=== PATIENT | male | born 1945 | race Caucasian/White ===

== ENCOUNTER 2023-02-12 17:19 | Emergency (ER) | payer OTHER ==
--- OUTSIDE RECORDS SUMMARY | 2023-02-12 17:36 | XMS REPORT | Continuity of Care Document ---
:1945 Author Organization [facility] t Address [address] [place] [address] [address] [place] [address] Care Team Providers Name Role Phone Yunior Mora Attending Clinician Unavailable Nick Hays II Attending Clinician Unavailable Ely Simon Attending Clinician Unavailable Yunior Mora Admitting Clinician Unavailable [facility] Admitting Clinician Unavailable Ely Simon Admitting Clinician Unavailable Payers Payer Name Policy Type Policy Number Effective Date Expiration Date S ource Problems This patient has no known problems. Allergies, Adverse Reactions, Alerts Allergy Allergy Status Severity Reaction(s) Onset Inactive Treating Comm ents Source Name Type Date Date Clinician No Known DA Active U [facility] Allergie 02-28 [place] 00:00: [facility] 00 are [facility] cetirizi DA Active U ANAPHYLAXIS [facility] ne 12-01 [place] 00:00: [facility] 00 are [facility] Medications This patient has no known medications. Procedures Procedure Date / Time Performed Performing Clinician Naomie bernal [id number] 2021-12-05 00:00:00 SANTOSH [facility] [id number] 2021-12-05 00:00:00 LABLI [facility] [id number] 2021-12-04 00:00:00 VITKA01 [facility] [id number] 2021-12-04 00:00:00 VITKA01 [facility] Encounters Start End Encounter Admission Attending Care Care Encounter Source Date/Time Date/Time Type Type Clinicians Facility Department ID 2022-08-18 2022-08-19 Inpatient EM Noel Hebert, HCANW TELE [id number] [facility] 04:49:00 15:50:00 Yunior 01 [facility] are [facility] 2022-04-03 2022-04-04 Inpatient EM Noel Hebert, HCANW INTM.01 BN02 [id number] [facility] 21:02:00 12:51:00 Yunior 25 [facility] are [facility] 2022-02-28 2022-02-28 Emergency EM Hays II, HCANW BEA [id number] [facility] 10:52:00 13:33:00 Nick 69 [facility] are [facility] 2022-02-28 2022-02-28 Emergency EM Hays II, HCANW HCANW [id number] [facility] 10:52:00 13:33:00 Nick [id number] [facility] are [facility] 2021-12-01 2021-12-05 Inpatient EM Aurora, HCANW CARDIAC [id number] [facility] 02:10:00 13:00:00 Ely 50 [facility] are [facility] 2019-09-25 2019-09-25 Outpatient E [facility] MED 7500 [facility] 14:06:00 14:06:00 Results Test Description Test Time Test Comments Results Result Comments Source HGBA1C - GLYCOSYLATED HGB 2022-08-19 11:54:00 Test Item Value Reference Range Interpretation Comme nts GLYCOSYLATED HEMOGLOBIN (HA1C) 6.4 % 4.0-6.0 H Interpretive Data: Caution should (test code = GLYHGB) be exer cised when interpreting the HgbA1c in patie nts with hemolytic anemia, iron de ficiency and when the total hemog lobin is < 9g/dL, due to a decrea se in average age of red blood ce lls [id number] 11:46:00 Test Item Value Reference Range Interpretation Comments GLUBED (test code = GLUBED) 217 MG/DL 70-105 H - MRI BRAIN W/O [id number] 10:53:00 [facility] 1945 Sex: MPatientName: PRISCILA CONCEPCION Unit No: [id number] EXAMS: CPT: [id number] MRI BRAIN W/O CONTRAST 12407 EXAM - MRIBRAIN W/O CONTRAST HISTORY: AMS; dysphagia, hx of CVA TECHNIQUE: Patient was unable to complete the study. Only the axial and coronal diffusion weighted images without IV contrast were obtained. FINDINGS: Limited incomplete study with only axial and coronal diffusion weighted images obtained which show ed no acute infarction. IMPRESSION: Limited incomplete study. No acute infarction seen. at 1053 Reported and signed by: Felicita Woodward MD CC: Yunior Hicks MD; Kary Ahn Technologist: BRENNAN Schreiber [facility] Dt/Tm: 08/19/2022 (1053) by:[email or web address] Orig Print D/T: S: 08/19/2022 (1056) BATCH NO: N/A Name: PRISCILA CONCEPCION [facility] Phys: Kary Moody [address] [place] : 1945 Age: 76 Sex: M Rafal [id number] Loc: N.0558 1 Exam Date: 08/18/2022 Status: ADM IN PH: FAX: PAGE 1 Signed Report [id number] 06:42:00 Test Item Value Reference Range Interpretation Comments TROPONIN-I (test code = TROPI) <0.020 ng/mL 0.000-0.034 N BASIC METABOLIC [id number] 06:37:00 Test Item Value Reference Range Interpretation Comments SODIUM (test code = 138 mmol/L 135-145 N NA) POTASSIUM (test code 3.5 mmol/L 3.6-5.0 L = K) CHLORIDE (test code 109 mmol/L 101-111 N = CL) CARBON DIOXIDE (test 24 mmol/L 21-31 N code = CO2) GLUCOSE (test code = 150 mg/dl 70-100 H GLU) BLOOD UREA NITROGEN 18 mg/dl 6-20 N (test code = BUN) GLOMERULAR 57 >60 L The Glomerular FILTRATION RATE Filtration R ate is a (test code = GFR) calculated parameterbased on serum Creatinine, pat ient age and sex. GFR va luesless than 60 mL/min/ 1.73 square meters a re indicative ofCh ronic Kidney Disease. Values less than 15 mL/min/1.73squa re meters indicate Kidney failure. The calculation for GFR is based on the CK D-EPI (2020) calculat ion. This formulais race indifferent and is the recommended for ishmael for GFRby the Nat nal Kidney Foundati on for Adults.The GFR will not calculate if th e sex is unknown or if thepatient's ag e is <18 years. CREATININE (test 1.29 mg/dL 0.64-1.27 H code = CREAT) CALCIUM (test code = 8.8 mg/dL 8.5-10.5 N CA) LIPID PROFILE (CORONARY RISK)2022-08-19 06:37:00 Test Item Value Reference Range Interpretation Comments TRIGLYCERIDES (test 158 mg/dL 35-160 N code = TRIG) CHOLESTEROL (test code 125 mg/dL 0-200 N = CHOL) HDL CHOLESTEROL (test 38 mg/dL 27-67 N code = HDL) LIPOPROTEIN LDL (test 56 mg/dl 0-100 N LDL NO RMAL code = LDLC) RANGE:Desirable <100 mg/dLBorderline Risk 130-159 mg/dLHi gh Risk >160 mg/dL CORONARY RISK FACTOR 3.29 Interpr etive Datai1: (test code = RISK) LDL Calc LDL Normal Range Desirable <100 mg/dl Borderlin e High 130-159 mg/dl > 160 mg/dl High Risk >160 mg/dl i2: Chol/ HDL Ratio of Total Cholesterol to HDL Risk Men Women Very Low (1/2 avg) < 3.4 <3.3 Low Risk 4 .0 3.8 Avg Risk 5.0 4. 5 Moderate Risk ( 2x avg) 9.5 7.0 Hi gh Risk (3x risk) >23 >11 CBC W/AUTO [id number] 06:33:00 Test Item Value Reference Range Interpretation Comments WHITE BLOOD CELL (test code = 6.9 x10 3/uL 3.2-11.5 N WBC) RED BLOOD CELL (test code = 3.98 x10(6)/m 4.20-5.70 L RBC) HEMOGLOBIN (test code = HGB) 12.7 g/dL 12.9-17.3 L HEMATOCRIT (test code = HCT) 36.0 % 38.7-51.0 L MEAN CELL VOLUME (test code = 91 fL 80-100 N MCV) MEAN CELL HGB (test code = MCH) 31.9 pg 26.7-33.3 N MEAN CELL HGB CONCENTRATION 35.3 g/dL 30.0-34.0 H (test code = MCHC) RED CELL DISTRIBUTION WIDTH 12.5 % 11.3-14.5 N (test code = RDW) PLATELET COUNT (test code = 128 x10 3/uL 130-408 L PLT) MEAN PLATELET VOLUME (test code 11.0 fL 8.6-12.6 N = MPV) NEUTROPHIL % (test code = NT%) 46.4 % 40.0-70.0 N IMMATURE GRANULOCYTE % (test 0.3 % 0.0-2.0 N code = IG%) LYMPHOCYTE % (test code = LY%) 37.1 % 20-40 N MONOCYTE % (test code = MO%) 8.5 % 1-10 N EOSINOPHIL % (test code = EO%) 6.8 % 0.0-5.0 H BASOPHIL % (test code = BA%) 0.9 % 0.0-1.0 N NUCLEATED RBC % (test code = 0.0 % 0.0-0.9 N NRBC%) NEUTROPHIL # (test code = NT#) 3.2 x10 3/uL 1.6-7.2 N LYMPHOCYTE # (test code = LY#) 2.57 x10 3/uL 1.1-2.7 N MONOCYTE # (test code = MO#) 0.6 x10 3/uL 0.3-0.8 N EOSINOPHIL # (test code = EO#) 0.5 x10 3/uL 0.0-0.5 N BASOPHIL # (test code = BA#) 0.1 x10 3/uL 0.0-0.1 N DIFFERENTIAL [id number] 06:16:00 Test Item Value Reference Range Interpretation Comments PLATELET MORPHOLOGY (test code = NORMAL PLTMORPH) [id number] 05:41:00 Test Item Value Reference Range Interpretation Comments GLUBED (test code = GLUBED) 145 MG/DL 70-105 H [id number] 22:07:00 Test Item Value Reference Range Interpretation Comments GLUBED (test code = GLUBED) 195 MG/DL 70-105 H VITAMIN [id number] 20:05:00 Test Item Value Reference Range Interpretation Comments VITAMIN B12 (test code = VITB12) 745 pg/ml 180-914 N THYROID REFLEX TO [id number] 20:05:00 Test Item Value Reference Range Interpretation Comments THYROID REFLEX TO FT4 (test code 1.509 uIU/ml 0.450-5.330 N = TSHREFLEX) VITAMIN D [id number] 20:05:00 Test Item Value Reference Range Interpretation Comments VITAMIN D 25-HYDROXY 34 ng/ml 30-100 N Interpr etive Data :Vit D (test code = VITD25) 25 Hydr oxy Vit D Status Vit OH Vit D Co nc Range(ng/mL) De ficient < 20 Insufficient 20 - < 30 Sufficient 30 - 100 Upper Safety Limit > 100 [id number] 16:03:00 Test Item Value Reference Range Interpretation Comments GLUBED (test code = GLUBED) 122 MG/DL 70-105 H [id number] 16:02:00 Test Item Value Reference Range Interpretation Comments TROPONIN-I (test code = TROPI) <0.020 ng/mL 0.000-0.034 N [id number] 11:55:00 Test Item Value Reference Range Interpretation Comments GLUBED (test code = GLUBED) 145 MG/DL 70-105 H - CT ANGIO [id number] 07:11:00 [facility] 1945 Sex: MPatientName: PRISCILA CONCEPCION Unit No: [id number] EXAMS: CPT: [id number] CT ANGIO HEAD [id number] EXAM: CTA BRAIN EXAM: CTA NECK DATE: 08/18/2022 1:37 AM INDICATION: Slow to speak COMPARISON: Send a CT head. CTA head on 04/04/2022. CTA head and neck on 12/01/2021. MRI brain on 12/02/2021. TECHNIQUE: CT imaging was performed with iterative reconstruction techniques and/or automated exposure control to reduce radiation dose. Rapid acquisition spiral CT images of the brain and neck were obtained between the aortic arch and the cranial vertex during intravenous infusion of iodinated contrast for the purposes of CT angiography. 3-D CT angiographic images are created using MIP technique at the acquisition workstation. The source images are also presented for interpretation. IV contrast: Refer to MAR/clinical technologist documentation DLP: Refer to CT protocol form FINDINGS: NECK CTA: Aortic arch: The great vessels originate from the aortic arch in the standard configuration. No origin stenosis is identified. The vertebral artery origins are patent bilaterally. Carotid arteries: The cervical common carotid arteries and cervical internal carotid arteries have a normal course, caliber, and contour. There are areas of calcification at the carotid bifurcations. No hemodynamically significant stenosis of the carotid bifurcations or internal carotid arteries is present by NASCET criteria. There is no evidence of vascular injury. Vertebral arteries: The vertebral arteries have a normal course, caliber and contour. Multiple subcentimeter hypodense nodules are present in the left thyroid lobe, none of which require further follow-up or evaluation. There is also small biapical scarring.. The remaining soft tissues of the neck and other incidental structures are normal. BRAIN CTA: The bilateral -type banking representative are seen with resulting diminutive bilateral P1 segments. The right anterior communicating artery is again noted to be dim inutive and the bilateral ACAs are again noted to share a common origin. No branch occlusion, vascular injury, Name: PRISCILA CONCEPCION [facility] ED Phys: [id number] - Nick Hays II CreekDOB: 1945 Age: 76 Sex: [place] [address] Loc: N.ERN 7 Exam Date: 08/18/2022 Status: ADM IN : FAX: PAGE 1 Signed Report (CONTINUED) Patient Name: PRISCILA CONCEPCION Unit No: [id number] EXAMS: CPT: [id number] CT ANGIO HEAD [address] (Continued) arteritis, vascular malformation oraneurysm is identified. The deep cerebral veins and major venous sinuses are normal. No enhancing lesions are seen within the brain. Periventricular and deep subcortical white matter hypodensities are again present, consistent with moderate chronic microvascular ischemia. No intracranial hemorrhages, midline shift, herniation, or edema seen. The basal cisterns are patent. No territorial infarct is present. IMPRESSION: Normal CTA of the neck and brain. Examination unchanged from prior CTA head on 04/04/2022. (All qualitative and quantitative assessments of carotid bifurcation and proximal internal carotid artery stenosis are made referencing the distal internal carotid artery {NASCET criteria}.) at 0711 Reported and signed by: Greg Cunha MD CC: Nick Hays II, Jr, MD; Undefined Provider Technologist: Lottie Gerard CTDI: 44.72 DLP: [id number] Dt/Tm: 08/18/2022 (0711) by:[email or web address] Orig Print D/T: S: 08/18/2022 (0714) BATCH NO: N/A Name:PRISCILA CONCEPCION [facility] ED Phys: MALED. - Nick Hays II [place] : 1945 Age: 76 Sex: [place] [address] Loc: N.ERNEj 7 Exam Date: 08/18/2022 Status: ADM IN PH: FAX: PAGE 2 Signed Report- CT ANGIO [id number] 07:11:00 [facility] : 1945 Sex: MPatientName: PRISCILA CONCEPCION Unit No: [id number] EXAMS: CPT: [id number] CT ANGIO NECK [address]82 EXAM: CTA BRAIN EXAM: CTA NECK DATE: 08/18/2022 1:37 AM INDICATION: Slow to speak COMPARISON: Send a CT head. CTA head on04/04/2022. CTA head and neck on 12/01/2021. MRI brain on 12/02/2021. TECHNIQUE: CT imaging was performed with iterative reconstruction techniques and/or automated exposure control to reduce radiation dose. Rapid acquisition spiral CT images of the brain and neck were obtained between the aortic arch andthe cranial vertex during intravenous infusion of iodinated contrast for the purposes of CT angiography. 3-D CT angiographic images are created using MIP technique at the acquisition workstation. The source images are also presented for interpretation. IV contrast: Refer to MAR/clinical technologist documentation DLP: Refer to CT protocol form FINDINGS: NECK CTA: Aortic arch: The great vessels originate from the aortic arch in the standard configuration. No origin stenosis is identified. The vertebral artery origins are patent bilaterally. Carotid arteries: The cervical common carotid arteries and cervical internal carotid arteries have a normal course, caliber, and contour. There are areas of calcification at the carotid bifurcations. No hemodynamically significant stenosis of the carotid bifurcations or internal carotid arteries is present by NASCET criteria. There is no evidence of vascular injury. Vertebral arteries: The vertebral arteries have a normal course, caliber and contour. Multiple subcentimeter hypodense nodules are present in the left thyroid lobe, none of which require further follow-up or evaluation. There is also small biapical scarring.. The remaining soft tissues of the neck and other incidental structures are normal. BRAIN CTA: The bilateral -type banking representative are seen with resulting diminutive bilateral P1 segments. The right anterior communicating artery is again noted to be d iminutive and the bilateral ACAs are again noted to share a common origin. No branch occlusion, vascular injury, Name: PRISCILA CONCEPCION [facility] ED Phys: MALED. - Nick Hays II Richard Marino [place] : 1945 Age: 76 Sex: [place] [address] Loc: N.[facility] 7 Exam Date: 08/18/2022 Status: ADM IN PH: FAX: PAGE 1 Signed Report (CONTINUED) Patient Name: PRISCILA CONCEPCION Unit No: [id number] EXAMS: CPT: [id number] CT ANGIO NECK 23579 (Continued) arteritis, vascular malformation oraneurysm is identified. The deep cerebral veins and major venous sinuses are normal. No enhancing lesions are seen within the brain. Periventricular and deep subcortical white matter hypodensities areagain present, consistent with moderate chronic microvascular ischemia. No intracranial hemorrhages,midline shift, herniation, or edema seen. The basal cisterns are patent. No territorial infarct is present. IMPRESSION: Normal CTA of the neck and brain. Examination unchanged from prior CTA head on 04/04/2022. (All qualitative and quantitative assessments of carotid bifurcation and proximal internal carotid artery stenosis are made referencing the distal internal carotid artery {NASCET criteria}.) at 0711 Reported and signed by: Greg Cunha MD CC: Nick Hays II, Jr, MD; Undefined Provider Technologist: Lottie Gerard CTDI: DLP: Trscr Dt/Tm: 08/18/2022 (710) by:[email or web address] Orig Print D/T: S: 08/18/2022 (713) BATCH NO: N/A [facility] - Nick Hays II Richard Marino [place] : 1945 Age: 76 Sex: [place] [address] Loc: NALOK 7 Exam Date: 08/18/2022 Status: ADM IN PH: FAX: PAGE 2 Signed ReportUA RFLX MICR CULT IF [id number] 02:52:00 Test Item Value Reference Range Interpretation Comments UA COLOR (test code = YELLOW YELLOW COLU) UA APPEARANCE (test Clear CLEAR code = APPU) UA GLUCOSE DIPSTICK 1+ NEGATIVE (test code = DGLUU) UA BILIRUBIN DIPSTICK NEGATIVE NEGATIVE (test code = BILU) UA KETONE DIPSTICK NEGATIVE NEGATIVE (test code = KETU) UA SPECIFIC GRAVITY 1.027 1.001-1.030 (test code = SGU) UA BLOOD DIPSTICK (test NEGATIVE NEGATIVE code = RAMONA) UA PH DIPSTICK (test 7.0 5.0-9.0 code = SERGEI) UA PROTEIN DIPSTICK 3+ NEGATIVE A (test code = PROU) UA UROBILINOGEN NEGATIVE See_Comment [Automated message] DIPSTICK (test code = The sy stem which URO) generated this result transmitted ref erence range: <=1.0. T he reference range was not used to int erpret this result as normal/abnormal . UA NITRITE DIPSTICK NEGATIVE NEGATIVE (test code = SAM) UA ASCORBIC ACID NEGATIVE DIPSTICK (test code = AAU) UA LEUKOCYTE ESTERASE NEGATIVE NEGATIVE DIPSTICK (test code = LEUU) UA WBC (test code = 0-5 /HPF 0-5 WBCUR) UA RBC (test code = 0-5 /HPF 0-5 RBCU) UA EPITHELIAL CELLS RARE /LPF NONE-FEW (test code = EPIU) UA BACTERIA (test code None /HPF NONE SEEN = BACU) UA MUCUS (test code = 1+ /LPF NONE SEEN MUCU) Indication for culture: RiskForSepsis-no oth srcSpecimen Description: CLEAN CATCHBASIC METABOLIC [id number] 02:20:00 Test Item Value Reference Range Interpretation Comments SODIUM (test code = 134 mmol/L 135-145 L NA) POTASSIUM (test code 3.1 mmol/L 3.6-5.0 L = K) CHLORIDE (test code 103 mmol/L 101-111 N = CL) CARBON DIOXIDE (test 23 mmol/L 21-31 N code = CO2) GLUCOSE (test code = 192 mg/dl 70-100 H GLU) BLOOD UREA NITROGEN 22 mg/dl 6-20 H (test code = BUN) GLOMERULAR 50 >60 L The Glomerular FILTRATION RATE Filtration R ate is a (test code = GFR) calculated parameterbased on serum Creatinine, pat ient age and sex. GFR va luesless than 60 mL/min/ 1.73 square meters a re indicative ofCh ronic Kidney Disease. Values less than 15 mL/min/1.73squa re meters indicate Kidney failure. The calculation for GFR is based on the CK D-EPI (2020) calculat ion. This formulais race indifferent and is the recommended for ishmael for GFRby the Natio nal Kidney Foundati on for Adults.The GFR will not calculate if th e sex is unknown or if thepatient's ag e is <18 years. CREATININE (test 1.43 mg/dL 0.64-1.27 H code = CREAT) CALCIUM (test code = 8.8 mg/dL 8.5-10.5 N CA) [id number] 02:19:00 Test Item Value Reference Range Interpretation Comments TROPONIN-I (test code = TROPI) <0.020 ng/mL 0.000-0.034 N - XR CHEST 1 [id number] 02:18:00 [facility] : 1945 Sex: MPatientName: PRISCILA CONCEPCION Unit No: [id number] EXAMS: CPT: [id number] XR CHEST 1 V [id number] PORTABLE CHEST, 08/18/2022. Comparison: 12/01/2021. CLINICAL: Stroke protocol. COMMENT: The heart, mediastinum, hilar regions and pulmonary vasculature appear within normal limits. The lungs are free of active disease. The bony thorax is intact. IMPRESSION: No evidence to suggest active disease or significant change since 12/01/2021. at 0218 Reported and signed by: Isaiah Thapa MD CC: Nick Hays II, Jr, MD; Undefined Provider Technologist: BRANDYN Gore Fluoro Time: DAP (Gy m2): Air Kerma (mGy): Trscr Dt/Tm: 08/18/2022 (217) by:[email or web address] Orig Print D/T: S: (220) BATCH NO: N/A Name: PRISCILA CONCEPCION [facility] Phys: MALED. Bella Hays II [address] [place] : 1945 Age: 76 Sex: [place] [address] Loc: N.ERS Exam Date: 08/18/2022 Status: REG ER PH: FAX: PAGE 1 Signed ReportPROTHROMBIN [id number] 02:12:00 Test Item Value Reference Range Interpretation Comments PROTHROMBIN TIME 13.8 SECONDS 9.5-13.4 H PATIENT (test code = PTP) INTERNATIONAL NORMAL 1.2 The INR is to be RATIO (test code = used only for INR) monitoring oral anticoagulantth erap y. INDICATION INR VALUE ---- ---- ---- --------1. Prophylaxis, de ep venous thrombos is, 2.0 - 2.5 inclu ding high-risk surgery.2. Prophylaxis, de ep venous thrombos is, 2.0 - 3.0 hip surgery, treatm ent for deep venous thrombosis or pulmonary prevention of systemic emboli sm in patients wit h valvular heart disease, atrial fibrillation, tissue heart va lve, or acute myocar dial infarction.3. Mechanical prosthesis hear t valves, 3.0 - 4 .5 recurrent syste sonia embolism. THROMBOPLASTIN TIME [id number] 02:12:00 Test Item Value Reference Range Interpretation Comments THROMBOPLASTIN TIME PARTIAL (test 36 SECONDS 25-38 N code = PTT) CBC W/AUTO [id number] 01:59:00 Test Item Value Reference Range Interpretation Comments WHITE BLOOD CELL (test code = 6.6 x10 3/uL 3.2-11.5 N WBC) RED BLOOD CELL (test code = 4.25 x10(6)/m 4.20-5.70 N RBC) HEMOGLOBIN (test code = HGB) 13.5 g/dL 12.9-17.3 N HEMATOCRIT (test code = HCT) 38.2 % 38.7-51.0 L MEAN CELL VOLUME (test code = 90 fL 80-100 N MCV) MEAN CELL HGB (test code = MCH) 31.8 pg 26.7-33.3 N MEAN CELL HGB CONCENTRATION 35.3 g/dL 30.0-34.0 H (test code = MCHC) RED CELL DISTRIBUTION WIDTH 12.6 % 11.3-14.5 N (test code = RDW) PLATELET COUNT (test code = 143 x10 3/uL 130-408 N PLT) MEAN PLATELET VOLUME (test code 11.1 fL 8.6-12.6 N = MPV) NEUTROPHIL % (test code = NT%) 40.2 % 40.0-70.0 N IMMATURE GRANULOCYTE % (test 0.3 % 0.0-2.0 N code = IG%) LYMPHOCYTE % (test code = LY%) 42.7 % 20-40 H MONOCYTE % (test code = MO%) 8.8 % 1-10 N EOSINOPHIL % (test code = EO%) 7.1 % 0.0-5.0 H BASOPHIL % (test code = BA%) 0.9 % 0.0-1.0 N NUCLEATED RBC % (test code = 0.0 % 0.0-0.9 N NRBC%) NEUTROPHIL # (test code = NT#) 2.6 x10 3/uL 1.6-7.2 N LYMPHOCYTE # (test code = LY#) 2.81 x10 3/uL 1.1-2.7 H MONOCYTE # (test code = MO#) 0.6 x10 3/uL 0.3-0.8 N EOSINOPHIL # (test code = EO#) 0.5 x10 3/uL 0.0-0.5 N BASOPHIL # (test code = BA#) 0.1 x10 3/uL 0.0-0.1 N - CT HEAD/BRAIN W/O [id number] 01:50:00 [facility] : 1945 Sex: MPatientName: PRISCILA CONCEPCION Unit No: [id number] EXAMS: CPT: [id number] CT HEAD/BRAIN W/O CONT 15025 CT HEAD WITHOUT CONTRAST, 08/18/2022. COMPARISON:04/03/2022. CLINICAL: Stroke protocol. Comment: Noncontrast transaxial plus sagittal/coronal reformatted images were obtained. Atrophy and chronic microvascular ischemic changes are present. The lateral, third and fourth ventricles appear within normal limits. There is no midline shift, acute intraparenchymal hemorrhage, major territorial infarction or extracerebralfluid collection. The calvarium is intact. The visualized paranasal sinuses and mastoids are well pneumatized. Critical result: The findings were discussed with Dr. Nick Hays II on 08/18/2022, [address] scans at this facility are performed using dose optimization techniques including the following: Automated exposure control. IMPRESSION: No evidence of acute intracranial hemorrhage or significant change since 04/03/2022. at 0150 Reported and signed by: Isaiah Thapa MD CC: Nick Hays II, Jr, MD; Undefined Provider Technologist:Lottie Gerard CTDI: 44.06 DLP: 809.42 Trscr Dt/Tm: 08/18/2022 (0150) by:[email or web address] Orig Print D/T: S: 08/18/2022 (0153) BATCH NO: N/A Name: PRISCILA CONCEPCION [facility] Phys: MALED.01 - Hays II,Nick R [address] [place] : 1945 Age: 76 Sex: [place] [address] Loc: N.ERSEx Date: 08/18/2022 Status: PRE ER PH: FAX: PAGE 1 Signed Report- CT ANGIO [id number] 18:13[facility] 1945 Sex: MPatient Name: PRISCILA CONCEPCION JR Unit No: [id number] Report Has Been Amended EXAMS: CPT: [id number] CT ANGIO NECK [address] Addendum - 04/04/2022 SIGNED 04/04/2022 ADDENDUM: [id number] CT/CTANNKWWO 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 Otherwise, no new finding after 3-D reconstruction. at 1813 Reported and signed by: COLLEEN SMITH MD Trans cribed: 04/04/2022 (1812) KristinaNVN Report EXAM: CT angiogram of the head and neck with contrast. CLINICAL HISTORY: TIA symptoms. TECHNIQUE: Multiple axial angiographic CT images of the head and neckwere obtained following administration of 100 mL Isovue-370 IV contrast . Coronal, sagittal, maximum intensity projection (MIP), and 3-D reformatted images were also generated for interpretation. CT radiation dose optimization is achieved for this examination by the use of a CT protocol in accordance with ACR practice guidelines and adherence to technical expert recommendations. CT DLP: 1908 mGy-cm COMPARISON: CT of the head and neck from 12/01/2021. FINDINGS: HEAD WITH CONTRAST: Moderate periventricularwhite matter microvascular change. No pathologic intracranial enhancement. No hydrocephalus. Clear visualized paranasal sinuses and mastoid air cells. No suspicious calvarial lesion. CT NECK Neck soft tissue: No suspicious enhancing lesion. No evidence of adenopathy. Included chest: No suspicious finding. Cervical spine: Degenerative changes from C3-C4 through C6- C7 leading to mild to moderate canal stenosis and moderate to severe foraminal stenosis. CTA HEAD Name: CARLENE PRISCILA NICHOLSON Albert [facility] Phys: Josh Reyna [address] [place] : 1945 Age: 76 Sex: [place] [address] Loc: N.ERSD 3 Exam Date: 04/04/2022 Status: ADM IN PH: FAX: PAGE 1 Signed Report (CONTINUED) Patient Name: PRISCILA CONCEPCION JR Unit No: [id number] Report Has Been Amended EXAMS: CPT: [id number] CT ANGIO NECK 92324 (Continued) Right intracranial ICA: patent Left intracranial ICA: patent Right MAHSA: patent to visualized A3 segments. Left MAHSA: patent to visualized A3 segments. Right MCA: patent to visualized M3 segments. Left MCA: patent to visualized M3 segments. Right P-comm: Patent. Left P-comm: Patent. Right GRANITE CHIP TERRAZZO FINISHER: patent to visualized P3 segments. 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 Patent Visualized P2 and P3 segments. Basilar artery: patent Right intracranial vertebral artery: patent Left intracranial vertebral artery: patent Major dural sinuses: Patent. CTA NECK Right cervical carotid artery: patent, mild atherosclerosis at the carotid bifurcation. No proximal ICA stenosis by NASCET criteria. Left cervical carotid artery: patent, mild atherosclerosis at the carotid bifurcation. No proximal ICA stenosis by NASCET criteria. Right cervical vertebral artery: patent Left cervical vertebral artery: patent Visualized thoracic aorta: patent Visualized subclavian arteries: patent IMPRESSION: 1. Patent major platinum of Srivastava arteries. 2. Patent cervical carotid and vertebral arteries. Mild atherosclerosis at the carotid bifurcation without causing any significant stenosis. Please note that 3-D reconstructions of these vessels are still pending at time of this dictation. An addendum will be issued to this report on ce 3-D reconstructions are available for interpretation. at 0111 Reported and signed by: COLLEEN SMITH MD Name: CARLENE NICHOLSONPRISCILA Price [facility] ED Phys: Josh Reyna [address] [facility] : 1945 Age: 76 Sex: M [place] [address] Loc: N.ERSD 3 Exam Date: 04/04/2022 Status: ADM IN PH: FAX: PAGE 2 Signed Report (CONTINUED) Patient Name: PRISCILA CONCEPCION JR Albert Unit No: [id number] Report Has Been Amended EXAMS: CPT: [id number] CT ANGIO NECK 71736 (Continued) CC: Josh TUTTLE Technologist: Lottie Schreiber CTDI: 44.1 DLP: 1908.25Trscr Dt/Tm: 04/04/2022 (011) by:Altaf Orig Print D/T:S: 04/04/2022 (0114) BATCH NO: N/A Name: CARLENE NICHOLSONPRISCILA Price [facility] ED Phys: Josh Reyna [address] 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 Otherwise, no new finding after 3-D reconstruction. at 1813 Reported and signed by: COLLEEN SMITH MD Transc ribed: 04/04/2022 (181) t.SDR.NVN Report EXAM: CT angiogram of the head and neck with contrast. CLINICAL HISTORY: TIA symptoms. TECHNIQUE: Multiple axial angiographic CT images of the head and neck were obtained following administration of 100 mL Isovue-370 IV contrast . Coronal, sagittal, maximum i ntensity projection (MIP), and 3-D reformatted images were also generated for interpretation. CT radiation dose optimization is achieved for this examination by the use of a CT protocol in accordance with ACR practice guidelines and adherence to technical expert recommendations. CT DLP: 1908 mGy-cm COMPARISON: CT of the head and neck from 12/01/2021. FINDINGS: HEAD WITH CONTRAST: Moderate periventricular white matter microvascular change. No pathologic intracranial enhancement. No hydrocephalus. Clear visualized paranasal sinuses and mastoid air cells. No suspicious calvarial lesion. CT NECK Neck soft tissue: No suspicious enhancing lesion. No evidence of adenopathy. Included chest: No suspicious finding. Cervical spine: Degenerative changes from C3-C4 through C6- C7 leading to mild to moderate canal stenosis and moderate to severe foraminal stenosis. CTA HEAD Name: PRISCILA CONCEPCION [facility]: Josh Reyna [address] [facility] : 1945 Age: 76 Sex: M [place], [place] [address]Sfrm No: [id number] Loc: N.ERSD 3 Exam Date: 04/04/2022 Status: ADM IN PH: FAX: PAGE 1 Signed Report (CONTINUED) Patient Name: PRISCILA CONCEPCION JR Unit No: [id number] Report Has Been Amended EXAMS: CPT: [id number] CT ANGIO HEAD 36378 (Continued) Right intracranial ICA: patent Left intracranial ICA: patent Right MAHSA: patent to visualized A3 segments. Left MAHSA: patent to visualized A3 segments. Right MCA: patent to visualized M3 segments. Left MCA: patent to visualized M3 segments. Right P-comm:Patent. Left P-comm: Patent. Right GRANITE CHIP TERRAZZO FINISHER: patent to visualized P3 segments. 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 Patent Visualized P2 and P3 segments. Basilar artery: patent Right intracranial vertebral artery: patent Left intracranial vertebral artery: patent Major dural sinuses: Patent. CTA NECK Right cervical carotid artery: patent, mild atherosclerosis at the carotid bifurcation. No proximal ICA stenosis by NASCET criteria. Left cervical carotid artery: patent, mild atherosclerosis at the carotid bifurcation. No proximal ICA stenosis by NASCET criteria. Right cervical vertebral artery: patent Left cervical vertebral artery: patent Visualized thoracic aorta: patent Visualized subclavian arteries: patent IMPRESSION: 1. Patent major platinum ofWillis arteries. 2. Patent cervical carotid and vertebral arteries. Mild atherosclerosis at the carotid bifurcation without causing any significant stenosis. Please note that 3-D reconstructions of these vessels are still pending at time of this dictation. An addendum will be issued to this report onc e 3-D reconstructions are available for interpretation. Electronically Signed by COLLEEN Simmons 04/04/2022 at 0111 Reported and signed by: COLLEEN SMITH MD Name: PRISCILA CONCEPCION JR [facility] Phys: Josh Reyna [place] [address] [facility] : 1945 Age: 76 Sex: [place] [address] Loc: N.ERSD 3 Exam Date: 04/04/2022 Status: ADM IN PH: FAX: PAGE 2 Signed Report (CONTINUED) Patient Name: PRISCILA CONCEPCION JR Unit No: [id number] Report Has Been Amended EXAMS: CPT: [id number] CT ANGIO HEAD [address]30 (Continued) CC: Josh TUTTLE Technologist: Lottie Schreiber CTDI: DLP: Trscr Dt/Tm: 04/04/2022 (0111) by:Altaf Orig Print D/T: S: 04/04/2022(0114) BATCH NO: N/A Name: CARLENE NICHOLSONPRISCILA Price [facility] Phys: Josh Reyna [address] [place] : 1945 Age: 76 Sex: [place] [address] Loc: N.ERSD 3Exam Date: 04/04/2022 Status: ADM IN PH: FAX: PAGE 3 Signed [id number] - GLYCOSYLATED [id number] 11:21:00 Test Item Value Reference Range Interpretation Comments GLYCOSYLATED HEMOGLOBIN 6.2 % 4.0-6.0 H Inte rpretive Data: (HA1C) (test code = Caution should be GLYHGB) exercised when interpreting th e HgbA1c in patients wit h hemolytic anemi a, iron deficiency and when the total hemoglobi n is < 9g/dL, due to a decrease in average age of red blood cells - MRI BRAIN W/O [id number] 08:45:00 [facility] 1945 Sex: MPatient Name: PRISCILA CONCEPCION JR Albert Unit No: [id number] EXAMS: CPT: [id number] MRI BRAIN W/O CONTRAST 52457 Comparison study: 04/03/2022 MRI OF THE BRAIN WITHOUT CONTRAST HISTORY: Stroke w/u TECHNIQUE: MRI of thebrain was performed without intravenous contrast. FINDINGS: The midline structures are intact. The cortical sulci, cisterns and ventricles are prominent consistent with involutional changes. Normal koenig-white differentiation is present. No intra-axial mass, hemorrhage or evidence of acute infarction is seen. No extra-axial fluid collections are present. Moderate scattered white matter signal alteration, nonspecific but statistically representing small vessel ischemic disease. The normal intracerebral flow-voids are present. The 7th and 8th nerve complexes are unremarkable. The visualized aspects ofthe orbits, paranasal sinuses and skull are unremarkable. IMPRESSION: 1. Moderate cerebral atrophy.2. Moderate white matter changes. 3. No acute intracranial abnormality identified. at 0845 Reported and signed by: Callum Martines MD CC: Yunior Hicks MD Technologist: Dorita Frazier [facility] Dt/Tm: 04/04/2022 (0845) by:[email or web address] Orig Print D/T: S: 04/04/2022 (0849) BATCH NO: N/A Name: PRISCILA CONCEPCION JR [facility] Phys: [id number] - Yunior Mora [address] [facility] : 1945 Age: 76 Sex: M [place], [place] [address] Loc: N.ERSD 3 Exam Date: 04/04/2022 Status: ADM IN PH: FAX: PAGE 1 Signed ReportBASIC METABOLIC PANEL 2022-04-04 03:52:00 Test Item Value Reference Range Interpretation Comments SODIUM (test code 135 mmol/L 135-145 N = NA) POTASSIUM (test 3.2 mmol/L 3.6-5.0 L code = K) CHLORIDE (test 104 mmol/L 101-111 N code = CL) CARBON DIOXIDE 23 mmol/L 21-31 N (test code = CO2) GLUCOSE (test code 132 mg/dl 70-100 H = GLU) BLOOD UREA 18 mg/dl 6-20 N NITROGEN (test code = BUN) GLOMERULAR >=60 max >60 The estimated FILTRATION RATE estimate glomerular (test code = GFR) filtration rate is computed usingpatient ra ce, age (>18), sex, and serum creatinin e. If anyof the neede d data elements a re missing the Laboratory kelly ot compute an estimation of t he glomerular filtration rate . CREATININE (test 1.02 mg/dL 0.64-1.27 N code = CREAT) CALCIUM (test code 8.6 mg/dL 8.5-10.5 N = CA) LIPID PROFILE (CORONARY RISK)2022-04-04 03:52:00 Test Item Value Reference Range Interpretation Comments TRIGLYCERIDES (test 264 mg/dL 35-160 H code = TRIG) CHOLESTEROL (test code 134 mg/dL 0-200 N = CHOL) HDL CHOLESTEROL (test 38 mg/dL 27-67 N code = HDL) LIPOPROTEIN LDL (test 44 mg/dl 0-100 N LDL NO RMAL code = LDLC) RANGE:Desirable <100 mg/dLBorderline Risk 130-159 mg/dLHi gh Risk >160 mg/dL CORONARY RISK FACTOR 3.53 Interpr etive Datai1: (test code = RISK) LDL Calc LDL Normal Range Desirabl e <100 mg/dl Borderlin e High 130-159 mg/dl > 160 mg/dl High Risk >160 mg/dl i2: Chol/ HDL Ratio of Total Cholesterol to HDL Risk Men Women Very Low (1/2 avg) < 3.4 <3.3 Low Risk 4 .0 3.8 Avg Risk 5.0 4. 5 Moderate Risk ( 2x avg) 9.5 7.0 H igh Risk (3x risk) >23 >11 CBC W/AUTO [id number] 02:24:00 Test Item Value Reference Range Interpretation Comments WHITE BLOOD CELL (test code = 6.8 x10 3/uL 3.2-11.5 N WBC) RED BLOOD CELL (test code = 4.10 x10(6)/m 4.20-5.70 L RBC) HEMOGLOBIN (test code = HGB) 13.0 g/dL 12.9-17.3 N HEMATOCRIT (test code = HCT) 36.8 % 38.7-51.0 L MEAN CELL VOLUME (test code = 90 fL 80-100 N MCV) MEAN CELL HGB (test code = MCH) 31.7 pg 26.7-33.3 N MEAN CELL HGB CONCENTRATION 35.3 g/dL 30.0-34.0 H (test code = MCHC) RED CELL DISTRIBUTION WIDTH 12.8 % 11.3-14.5 N (test code = RDW) PLATELET COUNT (test code = 138 x10 3/uL 130-408 N PLT) MEAN PLATELET VOLUME (test code 10.2 fL 8.6-12.6 N = MPV) NEUTROPHIL % (test code = NT%) 48.3 % 40.0-70.0 N LYMPHOCYTE % (test code = LY%) 35.3 % 20-40 N MONOCYTE % (test code = MO%) 7.5 % 1-10 N EOSINOPHIL % (test code = EO%) 7.9 % 0.0-5.0 H BASOPHIL % (test code = BA%) 0.7 % 0.0-1.0 N NUCLEATED RBC % (test code = 0.0 % 0.0-0.9 N NRBC%) NEUTROPHIL # (test code = NT#) 3.3 x10 3/uL 1.6-7.2 N LYMPHOCYTE # (test code = LY#) 2.40 x10 3/uL 1.1-2.7 N MONOCYTE # (test code = MO#) 0.5 x10 3/uL 0.3-0.8 N EOSINOPHIL # (test code = EO#) 0.5 x10 3/uL 0.0-0.5 N IMMATURE GRANULOCYTE % (test 0.3 % 0.0-2.0 N code = IG%) BASOPHIL # (test code = BA#) 0.1 x10 3/uL 0.0-0.1 N URINALYSIS [id number] 22:23:00 Test Item Value Reference Range Interpretation Comments UA COLOR (test code Dark yellow YELLOW = COLU) UA APPEARANCE (test Clear CLEAR code = APPU) UA GLUCOSE DIPSTICK 2+ NEGATIVE (test code = DGLUU) UA BILIRUBIN NEGATIVE NEGATIVE DIPSTICK (test code = BILU) UA KETONE DIPSTICK Trace NEGATIVE A (test code = KETU) UA SPECIFIC GRAVITY 1.029 1.001-1.030 (test code = SGU) UA BLOOD DIPSTICK NEGATIVE NEGATIVE (test code = RAMONA) UA PH DIPSTICK (test 5.0 5.0-9.0 code = SERGEI) UA PROTEIN DIPSTICK 3+ NEGATIVE A (test code = PROU) UA UROBILINOGEN NEGATIVE See_Comment [Automated message] DIPSTICK (test code The syst em which = URO) generated this result transmitted ref erence range: <=1.0. T he reference range was not used to int erpret this result as normal/abnormal . UA NITRITE DIPSTICK NEGATIVE NEGATIVE (test code = SAM) UA ASCORBIC ACID POSITIVE A High levels of DIPSTICK (test code ascorbic acid may = AAU) cause false negativeresults for blood, glucose & nitrite. UA LEUKOCYTE NEGATIVE NEGATIVE ESTERASE DIPSTICK (test code = LEUU) UA WBC (test code = 0-5 /HPF 0-5 WBCU) UA RBC (test code = 0-5 /HPF 0-5 RBCU) UA EPITHELIAL CELLS RARE /LPF NONE-FEW (test code = EPIU) UA BACTERIA (test None /HPF NONE SEEN code = BACU) UA HYALINE CAST 6-10 /LPF 0-1 A (test code = HYALU) UA MUCUS (test code 1+ /LPF NONE SEEN = MUCU) - CT HEAD/BRAIN W/O [id number] 22:19:00 [facility] 1945 Sex: MPatient Name: PRISCILA CERON JR Unit No: [id number] EXAMS: CPT: [id number] CT HEAD/BRAIN W/O CONT 25663 EXAM:CT HEAD WITHOUT CONTRAST CLINICAL HISTORY:TIA SYMPTOMS 30 MINUTES AGO, NONE CURRENTLY TECHNIQUE: Axial CT images of the head were obtained from the skull base to the vertex without contrast. Coronal and sagittal reconstructions were generated. CT radiation dose optimization is achieved for this examination by the use of a CT protocol in accordance with ACR practice guidelines and adherence to technical expert recommendations. CT DLP: 798 mGy-cm COMPARISON:None FINDINGS: No acute intracranial hemorrhageor regional mass effect. Preserved koenig-white matter differentiation. Moderate periventricular whitematter microvascular change as seen previously. Global mild to moderate brain volume loss. No hydrocephalus. No discrete extra-axial collection. No suspicious finding in the visualized orbits. No suspicious finding in the sella/suprasellar space, pineal region, or craniocervical junction. Mild mucosal thickening of ethmoid sinuses. No suspicious calvarial lesion. IMPRESSION: 1. No evidence of acute intracranial hemorrhage or mass effect. 2. No discrete territorial cortical infarct. 3. Moderate white matter microvascular change as seen previously. at 2219 Reported and signed by: COLLEEN SMITH MD CC: Josh TUTTLE Technologist: Lottie Schreiber CTDI: 42.81 DLP: 797.77 Trscr Dt/Tm: 04/03/2022 (2218) by:Altaf Orig Print D/T:S: 04/03/2022 (2221) BATCH NO: N/A Name: AMELIE NICHOLSONPRISCILA Albert [facility] Phys: Josh Reyna [address] [facility] : 1945 Age: 76 Sex: [place] [address] Loc : N.ERS Exam Date: 04/03/2022 Status: PRE ER PH: FAX: PAGE 1 Signed Report [id number] 22:14:00 Test Item Value Reference Range Interpretation Comments TROPONIN-I (test code = TROPI) <0.020 ng/mL 0.000-0.034 N BASIC METABOLIC [id number] 21:51:00 Test Item Value Reference Range Interpretation Comments SODIUM (test code = 138 mmol/L 135-145 N NA) POTASSIUM (test code 3.5 mmol/L 3.6-5.0 L = K) CHLORIDE (test code = 106 mmol/L 101-111 N CL) CARBON DIOXIDE (test 24 mmol/L 21-31 N code = CO2) GLUCOSE (test code = 209 mg/dl 70-100 H GLU) BLOOD UREA NITROGEN 17 mg/dl 6-20 N (test code = BUN) GLOMERULAR FILTRATION 60 >60 The es timated RATE (test code = glomerular filtration GFR) rate is compute d usingpatient ra ce, age (>18), sex, and serum creatinine. If anyof the needed data elements are mi ssing the Laboratory cannot compute an ruba mation of the glomerul ar filtration rate . CREATININE (test code 1.25 mg/dL 0.64-1.27 N = CREAT) CALCIUM (test code = 8.7 mg/dL 8.5-10.5 N CA) CBC W/AUTO [id number] 21:37:00 Test Item Value Reference Range Interpretation Comments WHITE BLOOD CELL (test code = 6.6 x10 3/uL 3.2-11.5 N WBC) RED BLOOD CELL (test code = 4.07 x10(6)/m 4.20-5.70 L RBC) HEMOGLOBIN (test code = HGB) 13.0 g/dL 12.9-17.3 N HEMATOCRIT (test code = HCT) 36.9 % 38.7-51.0 L MEAN CELL VOLUME (test code = 91 fL 80-100 N MCV) MEAN CELL HGB (test code = MCH) 31.9 pg 26.7-33.3 N MEAN CELL HGB CONCENTRATION 35.2 g/dL 30.0-34.0 H (test code = MCHC) RED CELL DISTRIBUTION WIDTH 12.8 % 11.3-14.5 N (test code = RDW) PLATELET COUNT (test code = 144 x10 3/uL 130-408 N PLT) MEAN PLATELET VOLUME (test code 11.0 fL 8.6-12.6 N = MPV) NEUTROPHIL % (test code = NT%) 49.2 % 40.0-70.0 N LYMPHOCYTE % (test code = LY%) 32.5 % 20-40 N MONOCYTE % (test code = MO%) 8.1 % 1-10 N EOSINOPHIL % (test code = EO%) 9.0 % 0.0-5.0 H BASOPHIL % (test code = BA%) 0.9 % 0.0-1.0 N NUCLEATED RBC % (test code = 0.0 % 0.0-0.9 N NRBC%) NEUTROPHIL # (test code = NT#) 3.2 x10 3/uL 1.6-7.2 N LYMPHOCYTE # (test code = LY#) 2.14 x10 3/uL 1.1-2.7 N MONOCYTE # (test code = MO#) 0.5 x10 3/uL 0.3-0.8 N EOSINOPHIL # (test code = EO#) 0.6 x10 3/uL 0.0-0.5 H IMMATURE GRANULOCYTE % (test 0.3 % 0.0-2.0 N code = IG%) BASOPHIL # (test code = BA#) 0.1 x10 3/uL 0.0-0.1 N UA RFLX MICR CULT IF [id number] 12:10:00 Test Item Value Reference Range Interpretation Comments UA COLOR (test code = YELLOW YELLOW COLU) UA APPEARANCE (test Clear CLEAR code = APPU) UA GLUCOSE DIPSTICK 1+ NEGATIVE (test code = DGLUU) UA BILIRUBIN DIPSTICK NEGATIVE NEGATIVE (test code = BILU) UA KETONE DIPSTICK Trace NEGATIVE A (test code = KETU) UA SPECIFIC GRAVITY 1.019 1.001-1.030 (test code = SGU) UA BLOOD DIPSTICK NEGATIVE NEGATIVE (test code = RAMONA) UA PH DIPSTICK (test 6.0 5.0-9.0 code = SERGEI) UA PROTEIN DIPSTICK 2+ NEGATIVE A (test code = PROU) UA UROBILINOGEN NEGATIVE See_Comment [Automated message] DIPSTICK (test code = The sy stem which URO) generated this result transmitted ref erence range: <=1.0. T he reference range was not used to interpr et this result as normal/abnormal . UA NITRITE DIPSTICK NEGATIVE NEGATIVE (test code = SAM) UA ASCORBIC ACID POSITIVE A High levels of ascorbic DIPSTICK (test code = acid m ay cause false AAU) negativeresults for blood, glucose & nitrite. UA LEUKOCYTE ESTERASE NEGATIVE NEGATIVE DIPSTICK (test code = LEUU) UA WBC (test code = 0-5 /HPF 0-5 WBCUR) UA RBC (test code = 0-5 /HPF 0-5 RBCU) UA EPITHELIAL CELLS RARE /LPF NONE-FEW (test code = EPIU) UA BACTERIA (test None /HPF NONE SEEN code = BACU) UA MUCUS (test code = 1+ /LPF NONE SEEN MUCU) Indication for culture: Dysuria/FrequencySpecimen Description: CLEAN CATCH- XR HIP W/PEL UNI 2+V [id number] 11:47:00 [facility] 1945 Sex: MPatientName: PRISCILA CONCEPCION Unit No: [id number] EXAMS: CPT: [id number] XR HIP W/PEL UNI 2+[place] [address] EXAM: 3 VIEWS LUMBAR SPINE; 2 VIEWS PELVIS AND RIGHT HIP HISTORY: Atraumatic low back and right hip pain. COMPARISON: None. FINDINGS: Lumbar spine No fracture identified. Alignment is anatomic. Moderate/advanceddegenerative findings with intervertebral disc space narrowing, vacuum disc phenomenon, and posterior facet arthropathy, most pronounced at L3-L4, L4-L5 and L5-S1. Carotid calcifications project over the prevertebral soft tissues. Expected postoperative findings of right total hip arthroplasty. Alignment is anatomic. No evidence for hardware fracture. Alignment is anatomic. The left femoral acetabular joint space appears preserved. No significant soft tissue abnormality. IMPRESSION: 1. 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 No acute fracture or malalignment. 2. Expected postoperative findings of right total hip arthroplasty. No acute findings of the pelvis/right hip. at 1147 Reported and signed by: JOSE ANGEL ORDAZ MD CC: Daniela TUTTLE Technologist: Tito Tenorio Time: DAP (Gy m2): Air Kerma (mGy): Trscr Dt/Tm: 02/28/2022 (1147) by:[email or web address] Orig Print D/T: S: 02/28/2022 (0200) BATCH NO: N/A Name: PRISCILA CONCEPCION [facility] Phys: KIMGERRY Foreman CicDaniela ibarra [address] : 1945 Age: 76 Sex: [place] [address] Loc: N.ERS Exam Date: 02/28/2022 Status: PRE ER PH: FAX: PAGE 1 Signed Report- XR L-SPINE 2/3 [id number] 11:47:00 [facility] 1945 Sex: MPatientName: PRISCILA CONCEPCION Unit No: [id number] EXAMS: CPT: [id number] XR L-SPINE 2/3 VIEWS 47085 EXAM: 3 VIEWS LUMBAR SPINE; 2 VIEWS PELVIS AND RIGHT HIP HISTORY: Atraumatic low back and right hip pain. COMPARISON: None. FINDINGS: Lumbar spine No fracture identified. Alignment is anatomic. Moderate/advanced d egenerative findings with intervertebral disc space narrowing, vacuum disc phenomenon, and posteriorfacet arthropathy, most pronounced at L3-L4, L4-L5 and L5-S1. Carotid calcifications project over the prevertebral soft tissues. Expected postoperative findings of right total hip arthroplasty. Alignment is anatomic. No evidence for hardware fracture. Alignment is anatomic. The left femoral acetabularjoint space appears preserved. No significant soft tissue abnormality. IMPRESSION: 1. 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 No acute fracture or malalignment. 2. Expected postoperative findings of right total hip arthroplasty. No acute findings of the pelvis/right hip. at 1147 Reported and signedby: JOSE ANGEL ORDAZ MD CC: Daniela TUTTLE Technologist: Tito Tenorio Time: DAP (Gy m2): Air Kerma (mGy): Trscr Dt/Tm: 02/28/2022 (1147) by:[email or web address] Orig Print D/T: S: 02/28/2022 (1150) BATCH NO: N/A Name: PRISCILA CONCEPCION [facility] Phys: Daniela [address] 1945 Age: 76 Sex: [place] [address] Loc: N.ERS Exam Date: 02/28/2022 Status: PRE ER PH: FAX: PAGE 1 Signed [id number] 11:09:00 Test Item Value Reference Range Interpretation Comments GLUBED (test code = GLUBED) 234 MG/DL 70-105 H [id number] 11:01:00 Test Item Value Reference Range Interpretation Comments GLUBED (test code = GLUBED) 234 MG/DL 70-105 H BASIC METABOLIC [id number] 06:01:00 Test Item Value Reference Range Interpretation Comments SODIUM (test code 136 mmol/L 135-145 N = NA) POTASSIUM (test 2.9 mmol/L 3.6-5.0 LL Critical Seema ue code = K) reported toFirs t Name:MELANIA santos Name:JUAN RIVERA READ BACK AND VERIFIEDby RADHA PrestonBP, on 12/05/21, @ 0601. CHLORIDE (test 104 mmol/L 101-111 N code = CL) CARBON DIOXIDE 24 mmol/L 21-31 N (test code = CO2) GLUCOSE (test code 213 mg/dl 70-100 H = GLU) BLOOD UREA 11 mg/dl 6-20 N NITROGEN (test code = BUN) GLOMERULAR >=60 max >60 The estimated FILTRATION RATE estimate glomerular (test code = GFR) filtration rate is computed usingpatient ra ce, age (>18), sex, and serum creatinin e. If anyof the neede d data elements a re missing the Laboratory kelly ot compute an estimation of t he glomerular filtration rate . CREATININE (test 1.00 mg/dL 0.64-1.27 N code = CREAT) CALCIUM (test code 8.3 mg/dL 8.5-10.5 L = CA) [id number] 05:54:00 Test Item Value Reference Range Interpretation Comments GLUBED (test code = GLUBED) 165 MG/DL 70-105 H CBC W/AUTO [id number] 05:10:00 Test Item Value Reference Range Interpretation Comments WHITE BLOOD CELL (test code = 6.0 x10 3/uL 3.2-11.5 N WBC) RED BLOOD CELL (test code = 4.42 x10(6)/m 4.20-5.70 N RBC) HEMOGLOBIN (test code = HGB) 13.3 g/dL 12.9-17.3 N HEMATOCRIT (test code = HCT) 38.3 % 38.7-51.0 L MEAN CELL VOLUME (test code = 87 fL 80-100 N MCV) MEAN CELL HGB (test code = MCH) 30.1 pg 26.7-33.3 N MEAN CELL HGB CONCENTRATION 34.7 g/dL 30.0-34.0 H (test code = MCHC) RED CELL DISTRIBUTION WIDTH 13.2 % 11.3-14.5 N (test code = RDW) PLATELET COUNT (test code = 179 x10 3/uL 130-408 N PLT) MEAN PLATELET VOLUME (test code 10.1 fL 8.6-12.6 N = MPV) NEUTROPHIL % (test code = NT%) 48.5 % 40.0-70.0 N LYMPHOCYTE % (test code = LY%) 34.1 % 20-40 N MONOCYTE % (test code = MO%) 8.3 % 1-10 N EOSINOPHIL % (test code = EO%) 7.8 % 0.0-5.0 H BASOPHIL % (test code = BA%) 1.0 % 0.0-1.0 N NUCLEATED RBC % (test code = 0.0 % 0.0-0.9 N NRBC%) NEUTROPHIL # (test code = NT#) 2.9 x10 3/uL 1.6-7.2 N LYMPHOCYTE # (test code = LY#) 2.04 x10 3/uL 1.1-2.7 N MONOCYTE # (test code = MO#) 0.5 x10 3/uL 0.3-0.8 N EOSINOPHIL # (test code = EO#) 0.5 x10 3/uL 0.0-0.5 N IMMATURE GRANULOCYTE % (test 0.3 % 0.0-2.0 N code = IG%) BASOPHIL # (test code = BA#) 0.1 x10 3/uL 0.0-0.1 N [id number] 20:58:00 Test Item Value Reference Range Interpretation Comments GLUBED (test code = GLUBED) 144 MG/DL 70-105 H [id number] 16:10:00 Test Item Value Reference Range Interpretation Comments GLUBED (test code = GLUBED) 162 MG/DL 70-105 H [id number] 12:09:00 Test Item Value Reference Range Interpretation Comments GLUBED (test code = GLUBED) 184 MG/DL 70-105 H [id number] 05:54:00 Test Item Value Reference Range Interpretation Comments GLUBED (test code = GLUBED) 154 MG/DL 70-105 H [id number] 20:41:00 Test Item Value Reference Range Interpretation Comments GLUBED (test code = GLUBED) 124 MG/DL 70-105 H [id number] 16:48:00 Test Item Value Reference Range Interpretation Comments GLUBED (test code = GLUBED) 210 MG/DL 70-105 H [id number] 11:38:00 Test Item Value Reference Range Interpretation Comments GLUBED (test code = GLUBED) 195 MG/DL 70-105 H [id number] 05:48:00 Test Item Value Reference Range Interpretation Comments GLUBED (test code = GLUBED) 145 MG/DL 70-105 H [id number] 20:42:00 Test Item Value Reference Range Interpretation Comments GLUBED (test code = GLUBED) 145 MG/DL 70-105 H [id number] 16:38:00 Test Item Value Reference Range Interpretation Comments GLUBED (test code = GLUBED) 174 MG/DL 70-105 H BASIC METABOLIC [id number] 15:25:00 Test Item Value Reference Range Interpretation Comments SODIUM (test code 138 mmol/L 135-145 N = NA) POTASSIUM (test 3.3 mmol/L 3.6-5.0 L code = K) CHLORIDE (test 103 mmol/L 101-111 N code = CL) CARBON DIOXIDE 25 mmol/L 21-31 N (test code = CO2) GLUCOSE (test code 222 mg/dl 70-100 H = GLU) BLOOD UREA 15 mg/dl 6-20 N NITROGEN (test code = BUN) GLOMERULAR >=60 max >60 The estimated FILTRATION RATE estimate glomerular (test code = GFR) filtration rate is computed usingpatient ra ce, age (>18), sex, and serum creatinin e. If anyof the neede d data elements a re missing the Laboratory kelly ot compute an estimation of t he glomerular filtration rate . CREATININE (test 1.11 mg/dL 0.64-1.27 N code = CREAT) CALCIUM (test code 8.6 mg/dL 8.5-10.5 N = CA) CBC W/AUTO [id number] 15:20:00 Test Item Value Reference Range Interpretation Comments WHITE BLOOD CELL (test code = 7.5 x10 3/uL 3.2-11.5 N WBC) RED BLOOD CELL (test code = 4.53 x10(6)/m 4.20-5.70 N RBC) HEMOGLOBIN (test code = HGB) 13.6 g/dL 12.9-17.3 N HEMATOCRIT (test code = HCT) 40.8 % 38.7-51.0 N MEAN CELL VOLUME (test code = 90 fL 80-100 N MCV) MEAN CELL HGB (test code = MCH) 30.0 pg 26.7-33.3 N MEAN CELL HGB CONCENTRATION 33.3 g/dL 30.0-34.0 N (test code = MCHC) RED CELL DISTRIBUTION WIDTH 13.4 % 11.3-14.5 N (test code = RDW) PLATELET COUNT (test code = 156 x10 3/uL 130-408 N PLT) MEAN PLATELET VOLUME (test code 11.3 fL 8.6-12.6 N = MPV) NEUTROPHIL % (test code = NT%) 60.5 % 40.0-70.0 N IMMATURE GRANULOCYTE % (test 0.5 % 0.0-2.0 N code = IG%) LYMPHOCYTE % (test code = LY%) 23.9 % 20-40 N MONOCYTE % (test code = MO%) 7.2 % 1-10 N EOSINOPHIL % (test code = EO%) 7.1 % 0.0-5.0 H BASOPHIL % (test code = BA%) 0.8 % 0.0-1.0 N NUCLEATED RBC % (test code = 0.0 % 0.0-0.9 N NRBC%) NEUTROPHIL # (test code = NT#) 4.5 x10 3/uL 1.6-7.2 N LYMPHOCYTE # (test code = LY#) 1.79 x10 3/uL 1.1-2.7 N MONOCYTE # (test code = MO#) 0.5 x10 3/uL 0.3-0.8 N EOSINOPHIL # (test code = EO#) 0.5 x10 3/uL 0.0-0.5 N BASOPHIL # (test code = BA#) 0.1 x10 3/uL 0.0-0.1 N - MRI BRAIN W/O [id number] 13:20:00 [facility] 1945 Sex: MPatientName: PRISCILA CERON Unit No: [id number] EXAMS: CPT: [id number] MRI BRAIN W/O CONTRAST 43667 MRI BRAIN WITHOUT CONTRAST TECHNIQUE: Multisequence multiplanar MR imaging of the brain without gadolinium contrast COMPARISON: NONE HISTORY: slurred speech FINDINGS: There is moderate diffuse age-related atrophythroughout the brain. There is ex vacuo dilatation of the ventricles and sulci. There is multiple small foci of increased FLAIR signal in the garces radiata and centrum semiovale which are nonspecificbut most suggestive of chronic small vessel disease in a patient this age. No evidence for acute cerebral ischemia. Brain parenchymal signal is otherwise unremarkable. Normal koenig-white differentiation. Ventricles normal in size/configuration. No midline shift. No mass effect. No extra-axial fluid collection. Orbits unremarkable. Mastoid air cells are clear. Sinuses clear. Included neck soft tissuesare unremarkable. Expected flow-voids at the skull base. No evidence for acute or remote intracranial hemorrhage. IMPRESSION: 1. Moderate chronic appearing small vessel microvascular ischemic changes are noted in the periventricular white matter. Diffusion-weighted images shows no evidence of acute infarct. No acute intracranial findings. at 1320 Reported and signed by: Celia Rodgers MD Name: PRISCILA CERON [facility] Phys: [id number] - Aurora,Ely S DO [address] [place] : 1945 Age: 75 Sex: M [place] [address] Loc: N.0383 1 Exam Date: 12/02/2021 Status: ADM IN PH: FAX: PAGE 1 Signed Report (CONTINUED) Patient Name: PRISCILA CERON Unit No: [id number] EXAMS: CPT: [id number] MRI BRAIN W/O CONTRAST 64970 (Continued) CC: Ely Simon DO Technologist: Dorita Luong Dt/Tm: 12/02/2021 (1320) by:[email or web address] Orig Print D/T: S: 12/02/2021 (1323) BATCH NO: N/A Name: PRISCILA CERON [facility] Phys: [id number] -Aurora,Ely S DO [address] [place] : 1945 Age: 75 Sex: M [place] [address] Loc: N.0383 1 Exam Date: 12/02/2021 Status: ADM IN PH: FAX: PAGE 2 Signed Report [id number] 11:52:00 Test Item Value Reference Range Interpretation Comments GLUBED (test code = GLUBED) 200 MG/DL 70-105 H [id number] 06:55:00 Test Item Value Reference Range Interpretation Comments GLUBED (test code = GLUBED) 144 MG/DL 70-105 H [id number] 22:34:00 Test Item Value Reference Range Interpretation Comments GLUBED (test code = GLUBED) 115 MG/DL 70-105 H - XR CHEST 2 [id number] 13:14:00 [facility] 1945 Sex: MPatient Name: PRISCILA CERON Unit No: [id number] EXAMS: CPT: [id number] XR CHEST 2 V 58937 EXAM: 2 VIEWS OF THE CHEST HISTORY: Fever. Concern for pneumonia. COMPARISON: None. FINDINGS: Lines/tubes: None. Lungs/Pleura: Patchy bibasilar/retrocardiac opacities, best seen on lateral projection. Pulmonary vasculatureappears within normal limits. No pleural effusion or pneumothorax. Heart/mediastinum: Cardiomediastinal silhouette is within normal limits. Bones/soft tissues: Within normal limits. IMPRESSION: Patchybibasilar/retrocardiac opacities, compatible with infectious/inflammatory process. at 1314 Reported and signed by: JOSE ANGEL ORDAZ MD CC: Shravan Hawthorne MD; lEy Simon DO Technologist: Marla Tenorio Time: DAP (Gy m2): Air Kerma (mGy): Trscr Dt/Tm: 12/01/2021 (1314) by:[email or web address] Orig Print D/T: S: 12/01/2021 (1318) BATCH NO: N/A Name: PRISCILA CERON [facility] Phys: Shravan Cárdenas MD [address] [place] : 1945 Age: 75 Sex: M [place], [place] [address] Loc: N.0383 1 Exam Date: 12/01/2021 Status: ADM IN PH: FAX: PAGE 1 Signed [id number] 11:40:00 Test Item Value Reference Range Interpretation Comments GLUBED (test code = GLUBED) 224 MG/DL 70-105 H THYROID STIMULATING [id number] 11:04:00 Test Item Value Reference Range Interpretation Comments THYROID STIMULATING HORMONE 0.804 uIU/ml 0.450-5.330 N (test code = TSH) [id number] 10:48:00 Test Item Value Reference Range Interpretation Comments TROPONIN-I (test code = TROPI) 0.029 ng/mL 0.000-0.034 N HGBA1C - GLYCOSYLATED [id number] 09:18:00 Test Item Value Reference Range Interpretation Comments GLYCOSYLATED HEMOGLOBIN 6.2 % 4.0-6.0 H Inte rpretive Data: (HA1C) (test code = Caution should be GLYHGB) exercised when interpreting th e HgbA1c in patients wit h hemolytic anemi a, iron deficiency and when the total hemoglobi n is < 9g/dL, due to a decrease in average age of red blood cells LIPID PROFILE (CORONARY RISK)2021-12-01 07:18:00 Test Item Value Reference Range Interpretation Comments TRIGLYCERIDES (test 222 mg/dL 35-160 H code = TRIG) CHOLESTEROL (test code 227 mg/dL 0-200 H = CHOL) HDL CHOLESTEROL (test 39 mg/dL 27-67 N code = HDL) LIPOPROTEIN LDL (test 144 mg/dl 0-100 H LDL NO RMAL code = LDLC) RANGE:Desirable <100 mg/dLBorderline Risk 130-159 mg/dLHi gh Risk >160 mg/dL CORONARY RISK FACTOR 5.82 Interpr etive Datai1: (test code = RISK) LDL Calc LDL Normal Range Desirable <100 mg/dl Borderlin e High 130-159 mg/dl > 160 mg/dl High Risk >160 mg/dl i2: Chol/ HDL Ratio of Total Cholesterol to HDL Risk Men Women Very Low (1/2 avg) < 3.4 <3.3 Low Risk 4 .0 3.8 Avg Risk 5.0 4. 5 Moderate Risk ( 2x avg) 9.5 7.0 Hi gh Risk (3x risk) >23 >11 Spec Comments: MUST BE [id number] 07:18:00 Test Item Value Reference Range Interpretation Comments MAGNESIUM (test code = MAG) 1.7 mg/dl 1.8-2.5 L Spec Comments: MUST BE [id number] 07:18:00 Test Item Value Reference Range Interpretation Comments TROPONIN-I (test code = TROPI) <0.020 ng/mL 0.000-0.034 N [id number] 02:16:00 Test Item Value Reference Range Interpretation Comments TROPONIN-I (test code = TROPI) <0.020 ng/mL 0.000-0.034 N URINALYSIS [id number] 02:08:00 Test Item Value Reference Range Interpretation Comments UA COLOR (test code = Colorless YELLOW COLU) UA APPEARANCE (test Clear CLEAR code = APPU) UA GLUCOSE DIPSTICK 2+ NEGATIVE (test code = DGLUU) UA BILIRUBIN DIPSTICK NEGATIVE NEGATIVE (test code = BILU) UA KETONE DIPSTICK NEGATIVE NEGATIVE (test code = KETU) UA SPECIFIC GRAVITY 1.023 1.001-1.030 (test code = SGU) UA BLOOD DIPSTICK (test 1+ NEGATIVE code = RAMONA) UA PH DIPSTICK (test 8.0 5.0-9.0 code = SERGEI) UA PROTEIN DIPSTICK 2+ NEGATIVE A (test code = PROU) UA UROBILINOGEN NEGATIVE See_Comment [Automated message] DIPSTICK (test code = The sy stem which URO) generated this result transmitted ref erence range: <=1.0. T he reference range was not used to int erpret this result as normal/abnormal . UA NITRITE DIPSTICK NEGATIVE NEGATIVE (test code = SAM) UA ASCORBIC ACID NEGATIVE DIPSTICK (test code = AAU) UA LEUKOCYTE ESTERASE NEGATIVE NEGATIVE DIPSTICK (test code = LEUU) UA WBC (test code = 0-5 /HPF 0-5 WBCU) UA RBC (test code = 0-5 /HPF 0-5 RBCU) UA EPITHELIAL CELLS None /LPF NONE-FEW (test code = EPIU) UA BACTERIA (test code None /HPF NONE SEEN = BACU) BASIC METABOLIC [id number] 02:07:00 Test Item Value Reference Range Interpretation Comments SODIUM (test code 138 mmol/L 135-145 N = NA) POTASSIUM (test 3.0 mmol/L 3.6-5.0 L code = K) CHLORIDE (test 101 mmol/L 101-111 N code = CL) CARBON DIOXIDE 25 mmol/L 21-31 N (test code = CO2) GLUCOSE (test code 161 mg/dl 70-100 H = GLU) BLOOD UREA 12 mg/dl 6-20 N NITROGEN (test code = BUN) GLOMERULAR >=60 max >60 The estimated FILTRATION RATE estimate glomerular (test code = GFR) filtration rate is computed usingpatient ra ce, age (>18), sex, and serum creatinin e. If anyof the neede d data elements a re missing the Laboratory kelly ot compute an estimation of t he glomerular filtration rate . CREATININE (test 1.08 mg/dL 0.64-1.27 N code = CREAT) CALCIUM (test code 9.0 mg/dL 8.5-10.5 N = CA) CBC W/AUTO [id number] 01:53:00 Test Item Value Reference Range Interpretation Comments WHITE BLOOD CELL (test code = 6.8 x10 3/uL 3.2-11.5 N WBC) RED BLOOD CELL (test code = 4.83 x10(6)/m 4.20-5.70 N RBC) HEMOGLOBIN (test code = HGB) 14.6 g/dL 12.9-17.3 N HEMATOCRIT (test code = HCT) 42.4 % 38.7-51.0 N MEAN CELL VOLUME (test code = 88 fL 80-100 N MCV) MEAN CELL HGB (test code = MCH) 30.2 pg 26.7-33.3 N MEAN CELL HGB CONCENTRATION 34.4 g/dL 30.0-34.0 H (test code = MCHC) RED CELL DISTRIBUTION WIDTH 13.3 % 11.3-14.5 N (test code = RDW) PLATELET COUNT (test code = 149 x10 3/uL 130-408 N PLT) MEAN PLATELET VOLUME (test code 11.4 fL 8.6-12.6 N = MPV) NEUTROPHIL % (test code = NT%) 42.2 % 40.0-70.0 N IMMATURE GRANULOCYTE % (test 0.4 % 0.0-2.0 N code = IG%) LYMPHOCYTE % (test code = LY%) 41.6 % 20-40 H MONOCYTE % (test code = MO%) 7.3 % 1-10 N EOSINOPHIL % (test code = EO%) 7.5 % 0.0-5.0 H BASOPHIL % (test code = BA%) 1.0 % 0.0-1.0 N NUCLEATED RBC % (test code = 0.0 % 0.0-0.9 N NRBC%) NEUTROPHIL # (test code = NT#) 2.9 x10 3/uL 1.6-7.2 N LYMPHOCYTE # (test code = LY#) 2.84 x10 3/uL 1.1-2.7 H MONOCYTE # (test code = MO#) 0.5 x10 3/uL 0.3-0.8 N EOSINOPHIL # (test code = EO#) 0.5 x10 3/uL 0.0-0.5 N BASOPHIL # (test code = BA#) 0.1 x10 3/uL 0.0-0.1 N - CT ANGIO [id number] 01:40:00 [facility] 1945 Sex: MPatient Name: PRISCILA CERON Unit No: [id number] EXAMS: CPT: [id number] CT ANGIO NECK [address] EXAM: CT HEAD WITHOUT CONTRAST. CT ANGIOGRAPHY OF THE HEAD AND NECK WITH CONTRAST. CT PERFUSION OF THE HEAD WITH CONTRASTCLINICAL HISTORY: CVA TECHNIQUE: 1. Multiple axial CT images of the head obtained without contrast. Coronal and sagittal reconstruction images also generated for interpretation. 2. Multiple axial angiographic CT angiogram images of the head and neck were obtained following administration of 100 mm Isovue 370 IV contrast. Coronal, sagittal, maximum intensity projection (MIP), and 3-D reformatted images were also generated for interpretation. 3. Multiple sequential axial CT perfusion images were obtained through the head after injection of 40 mL Isovue 370 intravenous contrast. Post processing was done with RAPID software and watkins images/sequences were sent to PACs for interpretation. CT radiation dose optimization is achieved for this examination by the use of a CT protocol in accordance with ACR practice guidelines and adherence to technical expert recommendations. CT DLP: 2732.88 mGy- cm COMPARISON:None available. HEAD WITH CONTRAST: No pathologic intracranial enhancement. CT ANGIOGRAM OF THE HEAD: FINDINGS:The distal cervical, petrous, and cavernous internal carotid arteries are patent. No large vessel occlusion is seen. The intracranial internal carotid arteries and the distal vertebral arteries and basilar artery show no evidence of stenosis or aneurysm. The anterior andmiddle and posterior cerebral arteries show no evidence of stenosis or atherosclerosis or aneurysm. The right A1 segment is hypoplastic or absent. The dural venous sinuses are patent. IMPRESSION: No large vessel occlusion seen. CT ANGIOGRAM OF THE CAROTID ARTERIES: FINDINGS: Name: PRISCILA CERON [facility] Phys: Kacy Alicia DO [address] [place] : 1945 Age:75 Sex: [place] [address] Loc: N.ERS Exam Date: 12/01/2021 Status: PRE ER PH: FAX: PAGE 1 Signed Report (CONTINUED) Patient Name: PRISCILA CERON Unit No: [id number] EXAMS: CPT: [id number] CT ANGIO NECK 16532 (Continued) AORTIC ARCH: Normal branching pattern. RIGHT: COMMON CAROTID ARTERY: No hemodynamically significant stenosis. No dissection. INTERNAL CAROTID ARTERY: Eccentric kary cified plaque at the origin. No stenosis. No dissection. EXTERNAL CAROTID ARTERY: No hemodynamicallysignificant stenosis. No dissection. VERTEBRAL ARTERY: No hemodynamically significant stenosis. No dissection LEFT: COMMON CAROTID ARTERY: No hemodynamically significant stenosis. No dissection. INTERNAL CAROTID ARTERY: Eccentric calcified plaque at the origin. No stenosis. No dissection. EXTERNAL CAROTID ARTERY: No hemodynamically significant stenosis. No dissection. VERTEBRAL ARTERY: No hemodynamically significant stenosis. No dissection. Soft tissue structures of the neck: No abnormality. IMPRESSION: No hemodynamically significant stenosis by NASCET criteria. CT PERFUSION: Study quality: adequate. Perfusion abnormalities: No perfusion abnormality. Estimated core infarction volume (CBF <30%) : 0 mL Estimated lkalfd-eo-yyir and core infarct volume (Tmax >6s): 49 mL Mismatch volume (ischemic penumbra): 49 mL Mismatch ratio: Infinite Mismatch volume = (Tmax>6s) volume- (CBF<30%) volume Mismatch ratio = (Tmax>6s) volume / (CBF<30%) volume IMPRESSION: No localized or regional perfusion abnormality. Tmax of greater than 6 seconds of 49 mL is diffusely scattered throughout the brain, likely technical. No cerebral blood flow abnormality. Name: PRISCILA CERON [facility] ED Phys: PELLE - PelegLeeor B DO [address] [facility] : 1945 Age: 75 Sex: M [place] [address] Loc: N.ERS Exam Date: 12/01/2021 Status: PRE ER PH: FAX: PAGE 2 Signed Report (CONTINUED) Patient Name: PRISCILA CERON Unit No: [id number] EXAMS: CPT: [id number] CT ANGIONECK 21915 (Continued) at 0140 Reported and signed by: Caleb Corley MD CC: Technologist: Nic Schreiber CTDI: 46.33 DLP: 1919.93Trscr Dt/Tm: 12/01/2021 (0140) by:[email or web address] Orig Print D/T: S: 12/01/2021 (0144) BATCH NO: N/A Name: PRISCILA CERON [facility] ED Phys: PELLE - PelegLeeor B DO [address] [facility] : 1945 Age: 75 Sex: M [place] [address] Loc: N.ERS Exam Date: 12/01/2021 Status: PRE ER PH: FAX: PAGE 3Signed Report- CT ANGIO [id number] 01:40:00 [facility] : 1945 Sex: MPatient Name: PRISCILA CERON Unit No: [id number] EXAMS: CPT: [id number] CT ANGIO HEAD [address]2437 EXAM: CT HEAD WITHOUT CONTRAST. CT ANGIOGRAPHY OF THE HEAD AND NECK WITH CONTRAST. CT PERFUSION OF THE HEAD WITH CONTRASTCLINICAL HISTORY: CVA TECHNIQUE: 1. Multiple axial CT images of the head obtained without contrast.Coronal and sagittal reconstruction images also generated for interpretation. 2. Multiple axial angio graphic CT angiogram images of the head and neck were obtained following administration of 100 mm Isovue 370 IV contrast. Coronal, sagittal, maximum intensity projection (MIP), and 3-D reformatted images were also generated for interpretation. 3. Multiple sequential axial CT perfusion images were obtained through the head after injection of 40 mL Isovue 370 intravenous contrast. Post processing was done with RAPID software and watkins images/sequences were sent to PACs for interpretation. CT radiation dose optimization is achieved for this examination by the use of a CT protocol in accordance with ACR practice guidelines and adherence to technical expert recommendations. CT DLP: 2732.88 mGy-cm COMPARISON:None available. HEAD WITH CONTRAST: No pathologic intracranial enhancement. CT ANGIOGRAM OF THE HEAD: FINDINGS:The distal cervical, petrous, and cavernous internal carotid arteries are patent. No large vessel occlusion is seen. The intracranial internal carotid arteries and the distal vertebral arteries and basilar artery show no evidence of stenosis or aneurysm. The anterior and middle and posterior cerebral arteries show no evidence of stenosis or atherosclerosis or aneurysm. The right A1 segment is hypoplastic or absent. The dural venous sinuses are patent. IMPRESSION: No large vessel occlusion seen. CT ANGIOGRAM OF THE CAROTID ARTERIES: FINDINGS: Name: PRISCILA CERON [facility] ED Phys: PADMINITal Crawleyfelicitas Sury [address] : 1945 Age: 75 Sex: [place] [address] Loc: N.ERS Exam Date: 12/01/2021 Status: PRE ER PH: FAX: PAGE 1 Signed Report (CONTINUED) Patient Name: PRISCILA CERON Unit No: [id number] EXAMS: CPT: [id number] CT ANGIO HEAD 21515 (Continued) AORTIC ARCH: Normal branching pattern. RIGHT: COMMON CAROTID ARTERY: No hemodynamically significant stenosis. No dissection. INTERNAL CAROTID ARTERY: Eccentric kary cified plaque at the origin. No stenosis. No dissection. EXTERNAL CAROTID ARTERY: No hemodynamicallysignificant stenosis. No dissection. VERTEBRAL ARTERY: No hemodynamically significant stenosis. No dissection LEFT: COMMON CAROTID ARTERY: No hemodynamically significant stenosis. No dissection. INTERNAL CAROTID ARTERY: Eccentric calcified plaque at the origin. No stenosis. No dissection. EXTERNAL CAROTID ARTERY: No hemodynamically significant stenosis. No dissection. VERTEBRAL ARTERY: No hemodynamically significant stenosis. No dissection. Soft tissue structures of the neck: No abnormality. IMPRESSION: No hemodynamically significant stenosis by NASCET criteria. CT PERFUSION: Study quality: adequate. Perfusion abnormalities: No perfusion abnormality. Estimated core infarction volume (CBF <30%) : 0 mL Estimated dndyoq-ll-qzdd and core infarct volume (Tmax >6s): 49 mL Mismatch volume (ischemic penumbra): 49 mL Mismatch ratio: Infinite Mismatch volume = (Tmax>6s) volume - (CBF<30%) volume Mismatch ratio = (Tmax>6s) volume / (CBF<30%) volume IMPRESSION: No localized or regional perfusion abnormality. Tmax of greater than 6 seconds of 49 mL is diffusely scattered throughout the brain, likely technical. No cerebral blood flow abnormality. Name: PRISCILA CERON [facility] ED Phys: Kacy Alicia DO [address] : 1945 Age: 75 Sex: [place] [address] Loc: N.ERS Exam Date: 12/01/2021 Status: PRE ER PH: FAX: PAGE 2 Signed Report (CONTINUED) Patient Name: PRISCILA CERON Unit No: [id number] EXAMS: CPT: [id number] CT ANGIO HEAD [address]606 (Continued) at 0140 Reported and signed by: Caleb Corley MD CC: Technologist: Nic Schreiber CTDI: DLP: Trscr Dt/Tm: 12/01/2021 (014) by:[email or web address] Orig Print D/T: S: 12/01/2021 (014) BATCH NO: N/A Name: PRISCILA CERON [facility] Phys: PELLE - Peleg,Leeor B DO [address] [place] : 1945 Age: 75 Sex: [place] [address] Loc: N.ERS Exam Date: 12/01/2021 Status: PRE ER PH: FAX: PAGE 3 Signed Report- CT CEREBRAL PERF [id number] [facility]:40[facility] 1945 Sex: MPatient Name: PRISCILA CERON Unit No: [id number] EXAMS: CPT: [id number] CT CEREBRAL PERF ANAL 0042T EXAM: CT HEAD WITHOUT CONTRAST. CT ANGIOGRAPHY OF THE HEAD AND NECK WITH CONTRAST. CT PERFUSION OF THE HEAD WITH CONTRAST CLINICAL HISTORY: CVA TECHNIQUE: 1. Multiple axial CT images of the head obtained without contrast. Coronal and sagittal reconstruction images also generated for interpretation. 2. Multiple axial angiographic CT angiogram images of the head and neck were obtained following administration of 100 mm Isovue 370 IV contrast. Coronal, sagittal, maximum intensity projection (MIP), and 3-D reformatted images were also generated for interpretation. 3. Multiple sequential axial CT perfusion images were obtained through the head after injection of 40 mL Isovue 370 intravenous contrast. Post processing was done with RAPID software and watkins images/sequences were sent to PACs for interpretation. CT radiation dose optimization is achieved for this examination by the use of a CT protocol in accordance with ACR practice guidelines and adherence to technical expert recommendations. CT DLP: 2732.88 mGy-cm COMPARISON: None available. HEAD WITH CONTRAST: No pathologic intracranial enhancement. CT ANGIOGRAM OF THE HEAD: FINDINGS:The distal cervical, petrous, and cavernous internal carotid arteries are patent. No large vessel occlusion is seen. The intracranial internal carotid arteries and the distal vertebral arteries and basilar artery show no evidence of stenosis or aneurysm. The anterior and middle and posterior cerebral arteries show no evidence of stenosis or atherosclerosis or aneurysm. The right A1 segment is hypoplastic or absent. The dural venous sinuses are patent. IMPRESSION: No large vessel occlusion seen. CT ANGIOGRAM OF THE CAROTID ARTERIES: FINDINGS: Name: PRISCILA CERON [facility] Phys: Kacy Alicia DO [address] [place] : 1945 Age: 75 Sex: [place] [address] Loc: N.ERS Exam Date: 12/01/2021 Status: PRE ER PH: FAX: PAGE 1 Signed Report (CONTINUED) Patient Name: PRISCILA CERON Unit No: [id number] EXAMS:CPT: [id number] CT CEREBRAL PERF ANAL 0042T (Continued) AORTIC ARCH: Normal branching pattern. RIGHT: COMMON CAROTID ARTERY: No hemodynamically significant stenosis. No dissection. INTERNAL CAROTID ARTERY: Eccentric calcified plaque at the origin. No stenosis. No dissection. EXTERNAL CAROTID ARTERY: No hemodynamically significant stenosis. No dissection. VERTEBRAL ARTERY: No hemodynamically significant stenosis. No dissection LEFT: COMMON CAROTID ARTERY: No hemodynamically significant stenosis. No dissection. INTERNAL CAROTID ARTERY: Eccentric calcified plaque at the origin. No stenosis. No dissection. EXTERNAL CAROTID ARTERY: No hemodynamically significant stenosis. No dissection. VERTEBRAL ARTERY: No hemodynamically significant stenosis. No dissection. Soft tissue structures of the neck: No abnormality. IMPRESSION: No hemodynamically significant stenosis by NASCET criteria. CT PERFUSION: Study quality: adequate. Perfusion abnormalities: No perfusion abnormality. Estimated core infarction volume (CBF <30%) : 0 mL Estimated [id number] and core infarct volume (Tmax >6s): 49 mL Mismatch volume (ischemic penumbra): 49 mL Mismatch ratio: Infinite Mismatch volume = (Tmax>6s) volume - (CBF<30%) volume Mismatch ratio = (Tmax>6s) volume / (CBF<30%) volume IMPRESSION: No localized or regional perfusion abnormality. Tmax of greater than 6 seconds of 49 mL is diffusely scattered throughout the brain, likely technical. No cerebral blood flow abnormality. Name:PRISCILA CERON [facility] Phys: Kacy Alicia DO [address] [facility] : 1945 Age: 75 Sex: M [place] [address] Loc: N.ERS Exam Date: 12/01/2021 Status: PRE ER PH: FAX: PAGE 2 Signed Report (CONTINUED) Patient Name: PRISCILA CERON Unit No: [id number] EXAMS: CPT: [id number] CT CEREBRAL PERF ANAL 0042T (Continued) at 0140 Reported and signed by: Caleb Corley MD CC: Technologist: Nic Schreiber CTDI: 99.60 DLP:796.78 Trscr Dt/Tm: 12/01/2021 (014) by:[email or web address] Orig Print D/T: S: 12/01/2021 (014) BATCH NO: N/A Name: PRISCILA CERON [facility] Phys: PELLE - Tal Turpinor B DO [address] [facility] : 1945 Age: 75 Sex: M [place] [id number] Loc: NMARIUSZ Exam Date: 12/01/2021 Status:PRE ER PH: FAX: PAGE 3 Signed Report- CT HEAD/BRAIN W/O [id number] 01:28:00 [facility] 1945 Sex: MPatient Name: PRISCILA CERON Unit No: [id number] EXAMS: CPT: [id number] CT HEAD/BRAIN W/O CONT 79838 CT HEAD WITHOUT CONTRAST: CLINICAL HISTORY: CVA COMPARISON: None. TECHNIQUE: Axial CT of the brain without IV contrast was performed. Coronal and sagittal reformatted images are submitted. FINDINGS: The ventriclesare normal in size and shape. There is diffuse cerebral volume loss. There is confluent hypodensity in the periventricular deep white matter consistent with chronic microangiopathy. There are several tiny old lacunar infarcts in the basal ganglia bilaterally. No evidence of an intra-axial or extra-axial mass is seen, and no shift of the midline structures is present. There is no evidence of acute cerebral infarction. No evidence of subarachnoid or parenchymal hemorrhage or extra-axial fluid collection is seen. The visualized paranasal sinuses are clear. IMPRESSION: No acute abnormality. DLP: 758.01 mGy-cm CT dose optimization is achieved for this examination by the use of a CT protocol in accordance with ACR practice standards and adherence to technical expert's recommendations with automated exposure control. at 0128 Reported and signed by: Caleb Corley MD CC: Technologist: Nic Schreiber CTDI: 47.26 DLP: 758.01 Trscr Dt/Tm: 12/01/2021 (0128) by:[email or web address] Orig Print D/T: S: 12/01/2021 (0131) BATCH NO: N/A Name: PRISCILA CERON [facility] ED Phys: Kacy Alicia DO [address] [place] : 1945 Age: 75 Sex: [place] [address] Loc: N.ERS Exam Date: 12/01/2021 Status: PRE ER PH: FAX: PAGE 1 Signed ReportGLUBED 2021-12-01 01:09:00 Test Item Value Reference Range Interpretation Comments GLUBED (test code = GLUBED) 116 MG/DL 70-105 H Notes Date/Time Note Provider Source 2022-08-19 15:17:00-00:00 HC[facility] ([facility]) Med Order Sheet REPORT #: [id number] REPORT STATUS: Signed DATE: 08/19/22 TIME: 151 PATIENT: PRISCILA COCNEPCION UNIT #: [id number] ROOM #: N.0558 BED: 1 : 44 AGE: 76 SEX: M ATTEND: Yunior Mora MD ADM AUTHOR: Rocio Pagan MD ATTENTION *EDITS and/or ADDENDA must be made in Patient Ke eper for this note. * * Edits and ammendments created in [facility] are not visible * * in Patient Keeper or the legal medical record (HPF). * Discharge Medication Reconciliation Discharge Meds Rec Completed. No Reconciled Orde rs. 1 5:17 Electronically Signed by Rocio Pagan MD on 0 08/19/22 at 1517 ATTENTION *EDITS and/or ADDENDA must be made in Patient [facility] for this note. * * Edits and ammendments created in [employer] are not visible * * in Patient Keeper or the legal medical record ([facility]). * RPT #: [id number] END OF REPORT 2022-08-19 14:59:00-00:00 [facility] Hospitalist D/C Summary REPORT #: [id number] REPORT STATUS: Signed DATE: 08/19/22 TIME: 1459 PATIENT: PRISCILA CONCEPCION UNIT #: [id number] ROOM #: N.0558 BED: 1 : 44 AGE: 76 SEX: M ATTEND: Yunior Mora MD ADM AUTHOR: Rocio Pagan MD ATTENTION *EDITS and/or ADDENDA must be made in Patient [facility] for this note. * * Edits and ammendments created in [facility] [employer] are not visible * * in Patient Keeper or the legal medical record ([facility]). * -- HOSPITAL COURSE -- HOSPITAL COURSE: 76yo WM with PMH of BPH, hypertension, hyperlipi demia, CVA x2, TIA, atrial fibrillation status post ablation on Eliquis adm itted to the hospital with difficulty speaking. Patient seen and examined t his AM, he is feeling better and denies any complaints at this time, working well with PT/OT and tolerating diet. He is now hemodynamica lly stable for discharge at this time, will need to continue medications per med rec and follow up o utpatient with PCP and Cardiology. TIA - symptoms resolved once in the ER, unknown dura tion - CTA head/neck with no acute findings - MRI of the brain with no acute findings - Echo shows EF of 45-50% with no valvular abnor malities - Continue ASA and Statin - lipid panel reviewed - A1C 6.4 hypertensive urgency - patient was on cardene gtt in the ER, weaned o ff - cont amlodipine 5mg daily + metoprolol 25mg BI D DM2, controlled - ADA diet - continue Metformin and Glipizide - A1C 6.4 - SSI BPH - cont flomax hx of migraines - patient takes meloxicam at home, hold d/t JOHNNIE acute kidney injury; improved - hold NSAIDs - IVF - trend - UA negative for infection hx of atrial fibrillation - s/p ablation - cont eliquis + metoprolol - tele - EKG with NSR DVT proph - eliquis full code NOK: Jasson Ceron, , [phone] -- DISCHARGE MEDICATIONS -- ALLERGIES: cetirizine (Unknown - Allergy) DISCHARGE MEDICATIONS: Acetaminophen Tab (Tylenol Tab) 500 MG PO ASDIR (Follow label instructions for pain or fever.) amLODIPine Tab (Norvasc Tab) 5 MG PO DAILY Apixaban Tab (Eliquis Tab) 5 MG PO BID Atorvastatin Tab (Lipitor Tab) 80 MG PO bedtime (Route: ORAL), Disp: 30 tablet, Refills: 1 Cetirizine Tab (NF) (ZyrTEC Tab (NF)) 10 MG PO D AILY Fluticasone Prop Nasal [place] (Flonase Nasal Spra y) 2 SPRAY Nasal DAILY Gabapentin Cap (Neurontin Cap) 300 MG PO TID glipiZIDE Tab (Glucotrol Tab) 5 MG PO bid (Route : ORAL), Disp: 60 tablet, Refills: 1 Ibuprofen Tab (Motrin Tab) 800 MG PO TID PRN sharan n Lisinopril Tab (Prinivil Tab) 40 MG PO DAILY metFORMIN Tab (Glucophage Tab) 1000 MG PO BID Metoprolol Tartrate Tab (Lopressor Tab) 25 MG PO BID Tamsulosin Cap (Flomax Cap) 0.4 MG PO DAILY Vitamin B-12 tablet (cyanocobalamin (vitamin B-1 2)) 1000 MCG PO DAILY Vitamin D3 Cap (Cholecalciferol Cap) 5000 UNITS PO DAILY RX DRUG DATABASE REVIEWED: Yes -- DISCHARGE INSTRUCTIONS -- ADDTIONAL DISCHARGE INSTRUCTIONS: Emergency Instructions: The patient was instruct ed to present to the nearest Emergency Department or call 911 should their sy mptoms return or worsen.; -- OBJECTIVE -- VITALS (08/18 15:00 - 08/19 15:00): Temperature C: 36.6 (36.5 - 36.8) Temperature source: Oral Pulse Rate 61 (50 - 61) Respiratory rate: 16 (16 - 18) BP: 150/69 (150/69 - 182/83) -EXAM- GENERAL: Well developed, well nourished, in no apparent distress. HEAD: Normocephalic, atraumatic. EYES: PERRL, EOM intact, conjunctiva and sclera clear, without nystagmus, lids normal. EARS: hard of hearing, uses hearing aids CHEST: Grossly normal appearance. LUNGS: Clear bilaterally with normal respirator y effort. HEART: Regular rate and rhythm, normal S1, S2, n o murmurs, no rubs, no gallops, no clicks. ABDOMEN: Soft, non-tender, no organomegaly, no m asses noted. MUSCULOSKELETAL: No deformity, no scoliosis note d of thoracic or lumbar spine, joint ROM grossly normal, normal gait a nd station. EXTREMITIES: No clubbing, no cyanosis, no edema. NEUROLOGICAL: No focal deficits, cranial nerves II-XII grossly intact, normal speech PULSES: Pulses normal in all extremities. SKIN: Intact without significant lesions, or darryl hes. PSYCHIATRIC: Alert and oriented to time, person , place. Normal mood and affect, intact judgment and insight. -- DATA -- LABS GLU BED (08/19/22 11:45) GLUBED 217 H GLU BED (08/19/22 05:41) GLUBED 145 H LIPID PROFILE (CORONARY RISK) (08/19/22 05:34) TRIGLYCERIDES 158 CHOLESTEROL 125 HDL CHOLESTEROL 38 LIPOPROTEIN LDL 56 CORONARY RISK FACTOR 3.29 HGBA1C - GLYCOSYLATED HGB (08/19/22 05:34) GLYCOSYLATED HEMOGLOBIN (HA1C) 6.4 H TROPI (08/19/22 05:34) TROPONIN-I <0.020 CBC W/AUTO DIFF (08/19/22 05:34) WHITE BLOOD CELL 6.9 RED BLOOD CELL 3.98 L HEMOGLOBIN 12.7L L HEMATOCRIT 36.0L L MEAN CELL VOLUME 91 MEAN CELL HGB 31.9 MEAN CELL HGB CONCENTRATION 35.3 H RED CELL DISTRIBUTION WIDTH 12.5 PLATELET COUNT 128L L MEAN PLATELET VOLUME 11.0 NEUTROPHIL % 46.4 IMMATURE GRANULOCYTE % 0.3 LYMPHOCYTE % 37.1 MONOCYTE % 8.5 EOSINOPHIL % 6.8 H BASOPHIL % 0.9 NUCLEATED RBC % 0.0 NEUTROPHIL # 3.2 LYMPHOCYTE # 2.57 MONOCYTE # 0.6 EOSINOPHIL # 0.5 BASOPHIL # 0.1 BASIC METABOLIC PANEL (08/19/22 05:34) SODIUM 138 POTASSIUM 3.5L L CHLORIDE 109 CARBON DIOXIDE 24 GLUCOSE 150H H BLOOD UREA NITROGEN 18 GLOMERULAR FILTRATION RATE 57 L CREATININE 1.29H H CALCIUM 8.8 GLU BED (08/18/22 22:06) GLUBED 195 H GLU BED (08/18/22 16:03) GLUBED 122 H TROPI (08/18/22 15:26) TROPONIN-I <0.020 -- QUALITY -- -MEDICATIONS- - I attest that the foregoing medication list i n the medical record is true, accurate, and complete to the best of my knowled ge. Signed in PatientKeeper by Rocio Pagan MD on 08/19/22 at 15:07 Electronically Signed by Rocio Pagan MD on 0 08/19/22 at 1507 ATTENTION *EDITS and/or ADDENDA must be made in Patient [facility] for this note. * * Edits and ammendments created in [facility] are not visible * * in Patient Keeper or the legal medical record ([facility]). * RPT #: [id number] END OF REPORT 2022-08-19 13:27:00-00:00 HCANW [facility] ([facility]) Med Order Sheet REPORT #: [id number] REPORT STATUS: Signed DATE: 08/19/22 TIME: 1327 PATIENT: PRISCILA CONCEPCION UNIT #: [id number] ROOM #: N.0558 BED: 1 : 44 AGE: 76 SEX: M ATTEND: Yunior Mora MD ADM AUTHOR: Rocio Pagan MD ATTENTION *EDITS and/or ADDENDA must be made in Patient [facility] for this note. * * Edits and ammendments created in [facility] are not visible * * in Patient Keeper or the legal medical record ([facility]). * Discharge Medication Reconciliation DISCHARGE MEDICATION LIST Acetaminophen Tab (Tylenol Tab) Dose: 500 MG PO ASDIR - Follow label instructions for pain or fever. amLODIPine Tab (Norvasc Tab) Dose: 5 MG PO DAILY Apixaban Tab (Eliquis Tab) Dose: 5 MG PO BID Atorvastatin Tab (Lipitor Tab) Dose: 80 MG PO bedtime, Disp: 30 tablet, Refill s: 1 - Route: ORAL Cetirizine Tab (NF) (ZyrTEC Tab (NF)) Dose: 10 MG PO DAILY Allergy: The use of Cetirizine Tab (NF) (ZyrTEC Tab (NF)) may result in an allergic reaction based o n a reported history of allergy to Drug: cetirizine Override Reason: Patient has received medicatio n in past and tolerated Fluticasone Prop Nasal [place] (Flonase Nasal Spra y) Dose: 2 SPRAY Nasal DAILY Gabapentin Cap (Neurontin Cap) Dose: 300 MG PO TID glipiZIDE Tab (Glucotrol Tab) Dose: 5 MG PO bid, Disp: 60 tablet, Refills: 1 - Route: ORAL Ibuprofen Tab (Motrin Tab) Dose: 800 MG PO TID PRN pain Lisinopril Tab (Prinivil Tab) Dose: 40 MG PO DAILY metFORMIN Tab (Glucophage Tab) Dose: 1000 MG PO BID Metoprolol Tartrate Tab (Lopressor Tab) Dose: 25 MG PO BID Tamsulosin Cap (Flomax Cap) Dose: 0.4 MG PO DAILY Vitamin B-12 tablet (cyanocobalamin (vitamin B-1 2)) Dose: 1000 MCG PO DAILY Vitamin D3 Cap (Cholecalciferol Cap) Dose: 5000 UNITS PO DAILY STOPPED HOME MEDICATIONS Dc'd: magnesium oxide tablet Oral (Route: ORAL)D c'd: meloxicam tablet 15 MG PO DAILYDc'd: Naproxen Tab (Naprosyn Tab) 375 MG PO BID STOPPED HOSPITAL MEDICATIONS Dc'd: Dextrose 50% 50 mL Syringe (D50W 50 mL Syr zay) 50ML IV ASDIR PRN bg<70Dc'd: Dextrose Chewable Tab (Glucose Chewab le Tab) 16GM PO ASDIR PRN bg 50-69 +can swallow +not npoDc'd: Dextrose Pamela wable Tab (Glucose Chewable Tab) 4GM PO ASDIR PRN bg 70-100 + symptomaticDc' d: Dextrose Chewable Tab (Glucose Chewable Tab) 8GM PO ASDIR PRN bg 70-10 0 + symptomaticDc'd: Glucagon Inj (Glucagon Inj) 1MG SubQ ASDIR PRN b g less than 70 no iv accessDc'd: hydrALAZINE Inj (Apresoline Inj) 10M G IV Q6H PRN sbp >160 or dbp >110Dc'd: Insulin (Lispro) Inj (HumaLog Inj ) 0 UNITS SubQ ASDIRDc'd: Ondansetron Inj (Zofran Inj) 4MG IV Q6H PRN naus ea and vomitingDc'd: Simethicone Chew Tab (Mylanta Gas Chew Tab) 160M G PO Q6H PRN gas Electronically Signed by Rocio Pagan MD on 0 08/19/22 at 1327 ATTENTION *EDITS and/or ADDENDA must be made in Patient Ke eper for this note. * * Edits and ammendments created in [facility] are not visible * * in Patient Keeper or the legal medical record ([facility]). * [facility] #: [id number] END OF REPORT 2022-08-18 12:38:00-00:00 [id number] [facility] [address] [place] [address] PATIENT NAME: PRISCILA CONCEPCION ADMIT DATE: 08/18/22 ACCOUNT NO: [id number] ROOM NO: N.0558 AGE: 76 REPORT TYPE: eECHOCARDIOGRAM SEX: M ADMITTING PHYSICIAN:Yunior Hicks MD ATTENDING PHYSICIAN:Yunior Hicks MD Transthoracic Echocardiography Report (TTE) ECHO 2D COMPLETE W/CF DOP Demographics Patient Name PRISCILA CONCEPCION Date of 1945 He ight 187.96 cm Age 76 Weight 110 Kgs Visit Number [id number] Gender Male BSA 2.36 m 2 Race BMI 31.14 Number kg/m 2 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 Amount - 20 ml Indications: CVA. Conclusions Summary LV: Concentric hypertrophy - Mild . Mild left ventricular systolic dysfunction. The ejection fraction was visually estimated at 45-50 %. Diastolic dysfunction noted. PATIENT NAME PRISCILA CONCEPCION 1 Mildly dilated LA. Saline bubble study is negative for PFO. Susan Looney MD, MS. Interventional Cardiology [facility]. Findings Left Ventricle LV: Concentric hypertrophy - Mild . Mild left ventricular systolic dysfunction. The ejection fraction was visually estimated at 45-50 %. Diastolic dysfunction noted. Right Ventricle Normal right ventricle structure and function. Left Atrium Mildly dilated LA. Saline bubble study is negative for PFO. Right Atrium Normal right atrium. Aortic Valve Normal aortic valve structure and function. Pulmonic Valve Normal pulmonic valve structure and function. Mitral Valve Normal Mitral Valve structure and function. Tricuspid Valve Normal tricuspid valve structure and function. Pleural Effusion No evidence of pleural effusion. Pericardial Effusion No evidence of pericardial effusion. M-Mode Measurements (in cm) LVIDd: 5.52 cm LA: 4 cm LVIDs: 4.28 cm AO Root: 3.39 cm Post. Wall Thickness: 1.26 cm LVOT: 1.98 cm Septal Thickness: 1.31 cm Fractional Shortenin.46 % LV EF Calculated (>50%): 44.6% Diastolic Parameters: PATIENT NAME PRISCILA CONCEPCION 1 MV Peak E-Wave: 0.8 m/s E/A Ratio: 0.83 MV Peak A-Wave: 0.96 m/s Doppler Measurements: Aortic Findings: AV Peak Velocity: 1.55 m/s AV Peak Gradient: 9. 59 mmHg AV Mean Gradient: 5.54 mmHg AV Area (Continuity ):2.17 cm 2 Pulmonic Flow: PV Peak Velocity: 0.98 m/s Tricuspid Findings: Peak TR Jet Velocity:2.63 m/s RVSP:37.66 mmHg Structures Left Ventricle Diastolic Dimension: 5.52 cm Systolic Dimension : 4.28 cm Septum Diastolic: 1.31 cm Septum Systolic: 1.75 cm PW Diastolic: 1.26 cm PW Systolic: 1.85 cm EF Calculated: 44.6% CO: 5.23 l/min CI: 2.22 l/min*m 2 FS: 22.46 % LV EDV/LV EDV Index: 148.58 ml/63 m 2 LVOT Diameter: 1.98 cm LV ESV/LV ESV Index: 82. 31 ml/35 m 2 Left Atrium LA Dimension: 4 cm LA Area: 21.65 cm 2 LA/Aorta: 1.18 LA Volume/Index: 68.73 ml /29m 2 Right Ventricle RV Systolic Pressure: 37.66 mmHg Right Atrium RA Systolic Pressure: 10 mmHg Aorta/PA/PV/IVC Aorta Aortic Root: 3.39 cm LVOT Diameter: 1.98 cm Valves Aortic Valve PATIENT NAME PRISCILA CONCEPCION 1 Peak Velocity: 1.55 m/s Area (continuity): 2.17 cm 2 Peak Gradient: 9.59 mmHg Mean Velocity: 1.12 m/ s Mean Gradient: 5.54 mmHg AV VTI: 37.17 cm Pulmonic Valve Peak Velocity: 0.98 m/s Mean Velocity: 0.75 m/s Peak Gradient: 3.83 mmHg Mean Gradient: 2.36 mm Hg Estimated PASP: 37.66 mmHg Mitral Valve Peak E-Wave: 0.8 m/s Peak A-Wave: 0.96 m/s Deceleration Time: 236.4 msec Peak Gradient: 2.55 mmHg E/A Ratio: 0.83 Tissue Doppler E' Velocity: 0.06 m/s Tricuspid Valve TR Velocity: 2.63 m/s Estimated RAP: 10 mmHg TR Gradient: 27.66 mmHg Estimated RVSP: 37.66 m mHg LVOT Peak Velocity: 1.17 m/s Mean Velocity: 0.73 m/s Peak Gradient: 5.47 mmHg Mean Gradient: 2.52 mm Hg LVOT Diameter: 1.98 cm LVOT VTI: 26.15 cm [email or web address] acces [id number] [email or web address] userpass at 1557 PATIENT NAME PRISCILA CONCEPCION 2022-08-18 11:40:00-00:00 HCANW [facility] Med Order Sheet REPORT #: [id number] REPORT STATUS: Signed DATE: 08/18/22 TIME: 1140 PATIENT: PRISCILA CONCEPCION UNIT #: [id number] ROOM #: [facility] BED: 7 : 44 AGE: 76 SEX: M ATTEND: Yunior Mora MD ADM AUTHOR: Kary Ahn ATTENTION *EDITS and/or ADDENDA must be made in Patient Ke eper for this note. * * Edits and ammendments created in [facility] are not visible * * in Patient Keeper or the legal medical record ([facility]). * Admission Medication Reconciliation -- CONTINUED / CHANGED HOME MEDICATIONS -- Home: amLODIPine Tab (Norvasc Tab) 5 MG PO DAILY Hosp: Existing: amLODIPine Tab (Norvasc Tab) 5MG PO DAILY Home: Vitamin D3 Cap (Cholecalciferol Cap) 5000 UNITS PO DAILY Hosp: Vitamin D3 Cap (Cholecalciferol Cap) 5000 UNITS PO DAILY -- STOPPED HOME MEDICATIONS -- Home: Cetirizine Tab (NF) (ZyrTEC Tab (NF)) 10 M G PO DAILY Home: metFORMIN Tab (Glucophage Tab) 1000 MG PO BID Home: Naproxen Tab (Naprosyn Tab) 375 MG PO BID FOLLOWING MEDICATIONS WERE PREVIOUSLY RECONC ILED ON 08/18/22 09:46 by Kary Ahn -- CONTINUED / CHANGED HOME MEDICATIONS -- Home: Acetaminophen Tab (Tylenol Tab) 500 MG PO ASDIR (Follow label instructions for pain or fever.) Hosp: Existing: Acetaminophen Tab (Tylenol Tab) 650MG PO Q4H PRN pain score 1-3/fever>100.4 Home: Apixaban Tab (Eliquis Tab) 5 MG PO BID Hosp: Existing: Apixaban Tab (Eliquis Tab) 5 MG PO Now and then BID Home: Atorvastatin Tab (Lipitor Tab) Oral (Route : ORAL) Hosp: Existing: Atorvastatin Tab (Lipitor Tab) 4 0 MG PO - po Home: Fluticasone Prop Nasal [place] (Flonase Nasa l [place]) 2 SPRAY Nasal DAILY Hosp: Existing: Fluticasone Prop Nasal [place] (Fl onase Nasal [place]) 2 SPRAY Nasal DAILY Home: Tamsulosin Cap (Flomax Cap) 0.4 MG PO ALEXSANDER Y Hosp: Existing: Tamsulosin Cap (Flomax Cap) 0.4 MG PO DAILY Home: Vitamin B-12 tablet (cyanocobalamin (vitam in B-12)) 1000 MCG PO DAILY Hosp: Existing: Cyanocobalamin Tab (Vitamin B-12 Tab) 1000 MCG PO DAILY -- STOPPED HOME MEDICATIONS -- Home: Aspirin EC Tab (Ecotrin Tab) 81 MG PO ALEXSANDER Y Home: Gabapentin Cap (Neurontin Cap) 300 MG PO T ID Home: glipiZIDE Tab (Glucotrol Tab) Oral (Route : ORAL) Home: Ibuprofen Tab (Motrin Tab) 800 MG PO TID P RN pain Home: Imitrex tablet (sumatriptan succinate) 50 MG PO Q2H PRN migraine (MAX 4 DOSES IN 24 HOURS.) Home: Lidocaine Patch 5% (Lidoderm Patch 5%) 1 P ATCH Transderm DAILY Home: Lisinopril Tab (Prinivil Tab) 40 MG PO TORIN LY Home: magnesium oxide tablet Oral (Route: ORAL) Home: meloxicam tablet 15 MG PO DAILY Home: Metoprolol Tartrate Tab (Lopressor Tab) 25 MG PO BID Home: NIFEdipine XL Tab (Procardia XL Tab) 90 MG PO Q12H Home: Spironolactone Tab (Aldactone Tab) 50 MG P O DAILY at 1140 ATTENTION *EDITS and/or ADDENDA must be made in Patient Ke eper for this note. * * Edits and ammendments created in [facility] are not visible * * in Patient Keeper or the legal medical record ([facility]). * RPT #: [id number] END OF REPORT 2022-08-18 11:00:00-00:00 HCANW [facility] ([facility] Internal Med. P REPORT #: [id number] REPORT STATUS: Signed DATE: 08/18/22 TIME: 1100 PATIENT: PRISCILA CONCEPCION UNIT #: [id number] ROOM #: [facility] BED: 1 : 44 AGE: 76 SEX: M ATTEND: Yunior Mora MD ADM AUTHOR: Kary Ahn MSN ATTENTION *EDITS and/or ADDENDA must be made in Patient Ke eper for this note. * * Edits and ammendments created in [employer] are not visible * * in Patient Keeper or the legal medical record ([facility]). 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 Agree with the findings and plan as documented. Moderate complexity. Signed in PatientKeeper by MARIE DELGADO DO on 02/02 at 15:57 -- HISTORY -- ADMISSION DATE: 2022-08-18 PRIMARY CARE PROVIDER: Primary or Family Physician, No CHIEF COMPLAINT: difficulty speaking HPI: 76yo WM with PMH of BPH, hypertension, hyperlipi demia, CVA x2, TIA, atrial fibrillation status post ablation on Eliquis adm itted to the hospital with difficulty speaking. Information obtained from p atient and ER report. It is reported that the patient had diffiuclty speakin g and was brought to the ER. Symptoms resolved once in the ER. No family pres ent at the bedside. Patient reports that he is now feeling normal. He has no rmal speech. He denies chest pain, shortness of breath, syncope, acute vision changes, OWENS, abdominal pain, nausea, vomiting, numbness, dysuria. PAST MEDICAL HISTORY: BPH, hypertension, hyperlipi demia, CVA x2, TIA, atrial fibrillation status post ablation on Eliquis PAST SURGICAL HISTORY: Right hip replacement FAMILY HISTORY: Reviewed and noncontributory -SOCIAL HISTORY- -TOBACCO USE- DETAILS/COMMENTS: Denies use -VAPING/INHALED SOLVENTS- DETAILS/COMMENTS: Denies use -ALCOHOL USE- DETAILS/COMMENTS: Denies use -DRUG USE- DETAILS/COMMENTS: Denies use MARITAL STATUS: LIVING SITUATION: The patient lives at home with his family. -- ALLERGIES/HOME MEDS -- ALLERGIES: cetirizine (Unknown - Allergy) HOME MEDICATIONS: Acetaminophen Tab (Tylenol Tab) 500 MG PO ASDIR amLODIPine Tab (Norvasc Tab) 5 MG PO DAILY Apixaban Tab (Eliquis Tab) 5 MG PO BID Aspirin EC Tab (Ecotrin Tab) 81 MG PO DAILY Atorvastatin Tab (Lipitor Tab) Oral Cetirizine Tab (NF) (ZyrTEC Tab (NF)) 10 MG PO D AILY Fluticasone Prop Nasal [place] (Flonase Nasal [place]) 2 SPRAY Nasal DAILY Gabapentin Cap (Neurontin Cap) 300 MG PO TID glipiZIDE Tab (Glucotrol Tab) Oral Ibuprofen Tab (Motrin Tab) 800 MG PO TID Imitrex tablet (sumatriptan succinate) 50 MG PO Q2H Lidocaine Patch 5% (Lidoderm Patch 5%) 1 PATCH T ransderm DAILY Lisinopril Tab (Prinivil Tab) 40 MG PO DAILY magnesium oxide tablet Oral meloxicam tablet 15 MG PO DAILY meloxicam tablet 15 MG PO DAILY metFORMIN Tab (Glucophage Tab) 1000 MG PO BID Metoprolol Tartrate Tab (Lopressor Tab) 25 MG PO BID Naproxen Tab (Naprosyn Tab) 375 MG PO BID NIFEdipine XL Tab (Procardia XL Tab) 90 MG PO Q 12H Spironolactone Tab (Aldactone Tab) 50 MG PO ALEXSANDER Y Tamsulosin Cap (Flomax Cap) 0.4 MG PO DAILY Vitamin B-12 tablet (cyanocobalamin (vitamin B-1 2)) 1000 MCG PO DAILY -- SUBJECTIVE -- -REVIEW OF SYSTEMS- GENERAL: Negative for fever, malaise, fatigue. EYES: Negative for blurry vision. No diplopia. EARS/NOSE/THROAT: Negative for sore throat. No o talgia. No rhinorrhea. RESPIRATORY: Negative for dyspnea or wheeze. No cough. CARDIOVASCULAR: Negative for chest pain or palpi tations. No extremity swelling. GASTROINTESTINAL: Negative for abdominal pain or nausea. No emesis. No diarrhea. GENITOURINARY: Negative for dysuria, frequency, or urgency. No gross hematuria. MUSCULOSKELETAL: Negative for joint stiffness, p ain, or arthralgias. SKIN: Negative for rashes. No pruritus. NEUROLOGICAL: slurred speech; PSYCHIATRIC: Negative for specific complaints. ENDOCRINE: Negative for cold intolerance, heat i ntolerance, polyphagia, polydipsia, polyuria, weight devlin e, fatigue. ALLERGIC / IMMUNOLOGIC: Negative for heat/cold i ntolerance, polydipsia, or polyuria. -- OBJECTIVE -- VITALS (08/17 11:00 - 08/18 11:00): Temperature F: 98.8 Pulse Rate 80 (79 - 91) Respiratory rate: 20 (18 - 24) BP: 201/111 (168/72 - 224/111) -EXAM- GENERAL: Well developed, well nourished, in no a pparent distress. HEAD: Normocephalic, atraumatic. EYES: PERRL, EOM intact, conjunctiva and sclera clear, without nystagmus, lids normal. EARS: hard of hearing, uses hearing aids CHEST: Grossly normal appearance. LUNGS: Clear bilaterally with normal respiratory effort. HEART: Regular rate and rhythm, normal S1, S2, n o murmurs, no rubs, no gallops, no clicks. ABDOMEN: Soft, non-tender, no organomegaly, no m asses noted. MUSCULOSKELETAL: No deformity, no scoliosis note d of thoracic or lumbar spine, joint ROM grossly normal, normal gait an d station. EXTREMITIES: No clubbing, no cyanosis, no edema. NEUROLOGICAL: No focal deficits, cranial nerves II-XII grossly intact, normal speech PULSES: Pulses normal in all extremities. SKIN: Intact without significant lesions, or darryl hes. PSYCHIATRIC: Alert and oriented to time, person, place. Normal mood and affect, intact judgment and insight. -- DATA -- LABS UA RFLX MICR amp;CULT IF INDICATED (08/18/22 02: 30) UA COLOR YELLOW UA APPEARANCE Clear UA GLUCOSE DIPSTICK 1+ UA BILIRUBIN DIPSTICK NEGATIVE UA KETONE DIPSTICK NEGATIVE UA SPECIFIC GRAVITY 1.027 UA BLOOD DIPSTICK NEGATIVE UA PH DIPSTICK 7.0 UA PROTEIN DIPSTICK 3+ H UA UROBILINOGEN DIPSTICK NEGATIVE UA NITRITE DIPSTICK NEGATIVE UA ASCORBIC ACID DIPSTICK NEGATIVE UA LEUKOCYTE ESTERASE DIPSTICK NEGATIVE UA WBC 0-5 UA RBC 0-5 UA EPITHELIAL CELLS RARE UA BACTERIA None UA MUCUS 1+ PTT (08/18/22 01:44) THROMBOPLASTIN TIME PARTIAL 36 CBC W/AUTO DIFF (08/18/22 01:44) WHITE BLOOD CELL 6.6 RED BLOOD CELL 4.25 HEMOGLOBIN 13.5 HEMATOCRIT 38.2L L MEAN CELL VOLUME 90 MEAN CELL HGB 31.8 MEAN CELL HGB CONCENTRATION 35.3 H RED CELL DISTRIBUTION WIDTH 12.6 PLATELET COUNT 143 MEAN PLATELET VOLUME 11.1 NEUTROPHIL % 40.2 IMMATURE GRANULOCYTE % 0.3 LYMPHOCYTE % 42.7 H MONOCYTE % 8.8 EOSINOPHIL % 7.1 H BASOPHIL % 0.9 NUCLEATED RBC % 0.0 NEUTROPHIL # 2.6 LYMPHOCYTE # 2.81 H MONOCYTE # 0.6 EOSINOPHIL # 0.5 BASOPHIL # 0.1 PROTHROMBIN TIME (08/18/22 01:44) PROTHROMBIN TIME PATIENT 13.8 H INTERNATIONAL NORMAL RATIO 1.2 TROPI (08/18/22 01:44) TROPONIN-I <0.020 BASIC METABOLIC PANEL (08/18/22 01:44) SODIUM 134L L POTASSIUM 3.1L L CHLORIDE 103 CARBON DIOXIDE 23 GLUCOSE 192H H BLOOD UREA NITROGEN 22H H GLOMERULAR FILTRATION RATE 50 L CREATININE 1.43H H CALCIUM 8.8 TEST RESULTS XR CHEST 1 V (08/18/22 02:00) XR CHEST 1 V PORTABLE CHEST, 08/18/2022. Comparison: 12/01/2021. CLINICAL: Stroke protocol. COMMENT: The heart, mediastinum, hilar regions a nd pulmonary vasculature appear within normal limits. The austin gs are free of active disease. The bony thorax is intact. IMPRESSION: No evidence to suggest active diseas e or significant change since 12/01/2021. Reported by: Isaiah Thapa MD Signed by: Isaiah Thapa MD --------- XR CHEST 1 V ORDERED PROVIDER: Nick Hays II, Jr, MD EXAM DATE: 08/18/2022 FACILITY: [facility] STATUS: Signed Exam Procedure [id number] RAD/XR CHEST 1 V Signed: [email or web address] Aug 18, 2022 2:18am CT ANGIO NECK (08/18/22 01:30) CT ANGIO NECK EXAM: CTA BRAIN EXAM: CTA NECK DATE: 08/18/2022 1:37 AM INDICATION: Slow to speak COMPARISON: Send a CT head. CTA head on 2. CTA head and neck on 12/01/2021. MRI brain on 12/02/2021. TECHNIQUE: CT imaging was performed with iterati ve reconstruction techniques and/or automated exposure control to reduce radiation dose. Rapid acquisition spiral CT images of the brain and neck were obtained between the aortic arch and the cranial vertex during intravenous infusion of iodinated contrast for t he purposes of CT angiography. 3-D CT angiographic images are crea yenni using MIP technique at the acquisition workstation. The so urce images are also presented for interpretation. IV contrast: Refer to MAR/clinical technologist docume ntation DLP: Refer to CT protocol form FINDINGS: NECK CTA: Aortic arch: The great vessels originate from th e aortic arch in the standard configuration. No origin stenosis is id entified. The vertebral artery origins are patent bilaterally. Carotid arteries: The cervical common carotid ar teries and cervical internal carotid arteries have a normal course, caliber, and contour. There are areas of calcification at the carotid bifurcations. No hemodynamically significant stenosis of the hernandez tid bifurcations or internal carotid arteries is present by NASCET c araseli. There is no evidence of vascular injury. Vertebral arteries: The vertebral arteries have a normal course, caliber and contour. Multiple subcentimeter hypodense nodules are pre sent in the left thyroid lobe, none of which require further foll ow-up or evaluation. There is also small biapical scarring.. The estelle ining soft tissues of the neck and other incidental structures are nor mal. BRAIN CTA: The bilateral -type banking representative are seen with resu lting diminutive bilateral P1 segments. The right anterior commun icating artery is again noted to be diminutive and the bilateral A Velasquez are again noted to share a common origin. No branch occlusion, vasc ular injury, arteritis, vascular malformation or aneurysm is identified. The deep cerebral veins and major venous sinuses are normal. No enhancing lesions are seen within the brain. Periventricular and deep subcortical white matter hypodensities are again present, consistent with moderate chronic microvascular i schemia. No intracranial hemorrhages, midline shift, herniat ion, or edema seen. The basal cisterns are patent. No territorial in farct is present. IMPRESSION: Normal CTA of the neck and brain. Ex amination unchanged from prior CTA head on 04/04/2022. (All qualitative and quantitative assessments of carotid bifurcation and proximal internal carotid artery stenosis ar e made referencing the distal internal carotid artery {NASCET criteria} .) Reported by: Greg Cunha MD Signed by: Greg Cunha MD --------- CT ANGIO NECK ORDERED PROVIDER: Nick Hays II, Jr, MD EXAM DATE: 08/18/2022 FACILITY: [facility] STATUS: Signed Exam Procedure [id number] CT/CT ANGIO NECK Signed: KristinaAMAug 18, 2022 7:11am CT HEAD/BRAIN W/O CONT (08/18/22 01:30) CT HEAD/BRAIN W/O CONT CT HEAD WITHOUT CONTRAST, 08/18/2022. COMPARISON:04/03/2022. CLINICAL: Stroke protocol. Comment: Noncontrast transaxial plus sagittal/co tatum reformatted images were obtained. Atrophy and chronic microvascular ischemic devlin es are present. The lateral, third and fourth ventricles appear with in normal limits. There is no midline shift, acute intraparenchyma l hemorrhage, major territorial infarction or extracerebral fluid co llection. The calvarium is intact. The visualized paranasa l sinuses and mastoids are well pneumatized. Critical result: The findings were discussed with Dr. Nick Hays II on 08/18/2022, [address] scans at this facility are performed usin g dose optimization techniques including the following: Automated ex posure control. IMPRESSION: No evidence of acute intracranial he morrhage or significant change since 04/03/2022. Reported by: Isaiah Thapa MD Signed by: Isaiah Thapa MD --------- CT HEAD/BRAIN W/O CONT ORDERED PROVIDER: Nick Hays II, Jr, MD EXAM DATE: 08/18/2022 FACILITY: [facility] STATUS: Signed Exam Procedure [id number] CT/CT HEAD/BRAIN W/O CONT Signed: [email or web address] Aug 18, 2022 1:50am CT ANGIO HEAD (08/18/22 01:30) CT ANGIO HEAD EXAM: CTA BRAIN EXAM: CTA NECK DATE: 08/18/2022 1:37 AM INDICATION: Slow to speak COMPARISON: Send a CT head. CTA head on 2. CTA head and neck on 12/01/2021. MRI brain on 12/02/2021. TECHNIQUE: CT imaging was performed with iterati ve reconstruction techniques and/or automated exposure control to reduce radiation dose. Rapid acquisition spiral CT images of the brain and neck were obtained between the aortic arch and the cranial vertex during intravenous infusion of iodinated contrast for t he purposes of CT angiography. 3-D CT angiographic images are crea yenni using MIP technique at the acquisition workstation. The so urce images are also presented for interpretation. IV contrast: Refer to MAR/clinical technologist docume ntation DLP: Refer to CT protocol form FINDINGS: NECK CTA: Aortic arch: The great vessels originate from th e aortic arch in the standard configuration. No origin stenosis is id entified. The vertebral artery origins are patent bilaterally. Carotid arteries: The cervical common carotid ar teries and cervical internal carotid arteries have a normal course, caliber, and contour. There are areas of calcification at the carotid bifurcations. No hemodynamically significant stenosis of the hernandez tid bifurcations or internal carotid arteries is present by NASCET c riteria. There is no evidence of vascular injury. Vertebral arteries: The vertebral arteries have a normal course, caliber and contour. Multiple subcentimeter hypodense nodules are pre sent in the left thyroid lobe, none of which require further foll ow-up or evaluation. There is also small biapical scarring.. The estelle ining soft tissues of the neck and other incidental structures are nor mal. BRAIN CTA: The bilateral -type banking representative are seen with resu lting diminutive bilateral P1 segments. The right anterior commun icating artery is again noted to be diminutive and the bilateral A Velasquez are again noted to share a common origin. No branch occlusion, vasc ular injury, arteritis, vascular malformation or aneurysm is identified. The deep cerebral veins and major venous sinuses are normal. No enhancing lesions are seen within the brain. Periventricular and deep subcortical white matter hypodensities are again present, consistent with moderate chronic microvascular i schemia. No intracranial hemorrhages, midline shift, herniat ion, or edema seen. The basal cisterns are patent. No territorial in farct is present. IMPRESSION: Normal CTA of the neck and brain. Ex amination unchanged from prior CTA head on 04/04/2022. (All qualitative and quantitative assessments of carotid bifurcation and proximal internal carotid artery stenosis ar e made referencing the distal internal carotid artery {NASCET criteria} .) Reported by: Greg Cunha MD Signed by: Greg Cunha MD --------- CT ANGIO HEAD ORDERED PROVIDER: Nick Hays II, Jr, MD EXAM DATE: 08/18/2022 FACILITY: [facility] STATUS: Signed Exam Procedure [id number] CT/CT ANGIO HEAD Signed: KristinaAMAug 18, 2022 7:11am -- ASSESSMENT AND PLAN -- GENERAL ASSESSMENT: 76yo WM with PMH of BPH, hypertension, hyperlipi demia, CVA x2, TIA, atrial fibrillation status post ablation on Eliquis adm itted to the hospital with difficulty speaking difficulty speaking hx of CVA x2 + TIA - symptoms resolved once in the ER, unknown dura tion - TIA vs CVA - CTA head/neck with no acute findings - MRI of the brain pending - PT/OT/ST - ASA given - lipid panel in AM - A1C pending hypertensive urgency - patient was on cardene gtt in the ER, weaned o ff - cont amlodipine 5mg daily + metoprolol 25mg BI D - hold lisinopril d/t JOHNNIE - PRN hydralazine - tele DM2, controlled - ADA diet - hold metformin + glipizide - A1C pending - SSI BPH - cont flomax hx of migraines - patient takes meloxicam at home, hold d/t JOHNNIE acute kidney injury - hold BELEN + NSAIDs - IVF - trend - UA negative for infection hx of atrial fibrillation - s/p ablation - cont eliquis + metoprolol - tele - EKG with NSR DVT proph - eliquiis full code NOK: Jasson Ceron, , [phone] -- QUALITY -- -ADVANCED CARE PLAN >65- full code 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 * * Edits and ammendments created in [employer] are not visible * * in Patient Keeper or the legal medical record (HPF). * RPT #: [id number] END OF REPORT 2022-08-18 09:46:00-00:00 [facility] ([facility]) Med Order Sheet REPORT #: [id number] REPORT STATUS: Signed DATE: 08/18/22 TIME: 945 PATIENT: PRISCILA CONCEPCION UNIT #: [id number] ROOM #: YANNI BED: 7 : 44 AGE: 76 SEX: M ATTEND: Yunior Mora MD ADM AUTHOR: Kary Ahn ATTENTION *EDITS and/or ADDENDA must be made in Patient Ke eper for this note. * * Edits and ammendments created in [facility] are not visible * * in Patient Keeper or the legal medical record (HPF). * Admission Medication Reconciliation -- CONTINUED / CHANGED HOME MEDICATIONS -- Home: Acetaminophen Tab (Tylenol Tab) 500 MG PO ASDIR (Follow label instructions for pain or fever.) Hosp: Existing: Acetaminophen Tab (Tylenol Tab) 650MG PO Q4H PRN pain score 1-3/fever>100.4 Home: Apixaban Tab (Eliquis Tab) 5 MG PO BID Hosp: Apixaban Tab (Eliquis Tab) 5 MG PO Now and then BID Home: Atorvastatin Tab (Lipitor Tab) Oral (Route : ORAL) Hosp: Atorvastatin Tab (Lipitor Tab) 40 MG PO - po Home: Fluticasone Prop Nasal [place] (Flonase Nasa l [place]) 2 SPRAY Nasal DAILY Hosp: Fluticasone Prop Nasal [place] (Flonase Nasa l [place]) 2 SPRAY Nasal DAILY Home: Tamsulosin Cap (Flomax Cap) 0.4 MG PO ALEXSANDER Y Hosp: Tamsulosin Cap (Flomax Cap) 0.4 MG PO ALEXSANDER Y Home: Vitamin B-12 tablet (cyanocobalamin (vitam in B-12)) 1000 MCG PO DAILY Hosp: Cyanocobalamin Tab (Vitamin B-12 Tab) 1000 MCG PO DAILY -- STOPPED HOME MEDICATIONS -- Home: Aspirin EC Tab (Ecotrin Tab) 81 MG PO ALEXSANDER Y Home: Gabapentin Cap (Neurontin Cap) 300 MG PO T ID Home: glipiZIDE Tab (Glucotrol Tab) Oral (Route: ORAL) Home: Ibuprofen Tab (Motrin Tab) 800 MG PO TID P RN pain Home: Imitrex tablet (sumatriptan succinate) 50 MG PO Q2H PRN migraine (MAX 4 DOSES IN 24 HOURS.) Home: Lidocaine Patch 5% (Lidoderm Patch 5%) 1 P ATCH Transderm DAILY Home: Lisinopril Tab (Prinivil Tab) 40 MG PO TORIN LY Home: magnesium oxide tablet Oral (Route: ORAL) Home: meloxicam tablet 15 MG PO DAILY Home: Metoprolol Tartrate Tab (Lopressor Tab) 25 MG PO BID Home: NIFEdipine XL Tab (Procardia XL Tab) 90 MG PO Q12H Home: Spironolactone Tab (Aldactone Tab) 50 MG P O DAILY at 0946 ATTENTION *EDITS and/or ADDENDA must be made in Patient Ke eper for this note. * * Edits and ammendments created in [employer] are not visible * * in Patient Keeper or the legal medical record (HPF). * [facility] #: [id number] END OF REPORT 2022-08-18 01:58:00-00:00 [id number] [facility] [address] [place] [address] PATIENT NAME: PRISCILA CONCEPCION ADMIT DATE: 08/18/22 ACCOUNT NO: [id number] ROOM NO: [id number] AGE: 76 REPORT TYPE: ELECTROCARDIOGRAM SEX: M ADMITTING PHYSICIAN:Yunior Hicks MD ATTENDING PHYSICIAN:Yunior Hicks MD Order: [id number] Test Reason : Resting 12-lead ECG Test Date/Time Stamp: SunAug 18 2022 01:58:09 Blood Pressure : / mmHG Vent. Rate : 077 BPM Atrial Rate : 000 BPM P-R Int : 110 ms QRS Dur : 106 ms QT Int : 398 ms P-R-T Axes : 235 -19 074 degree s QTc Int : 452 ms SINUS RHYTHM WITH SHORT TX INTERVAL BORDERLINE ECG Reviewed by Confirmed by VANCE LOONEY ([id number]) on 08/20/19 8:24:12 PM Referred By: Self Referred Confirmed by:VANCE LOONEY at 2023 PATIENT NAME PRISCILA CONCEPCION 1 2022-08-18 01:51:00-00:00 [facility] ([facility]) EMERGENCY PROVIDER REPORT REPORT#:[id number] REPORT STATUS: Signed DATE:08/18/22 TIME: 015 PATIENT: PRISCILA CONCEPCION UNIT #: [id number] ROOM: [facility] BED: 1 AGE: 76 SEX: M PCP PHYS: No Primary or Family Ph ysician SERVICE AUTHOR: Nick Hays II, MD * ALL edits or amendments must be made on the el [employer]/computer document * HPI-Stroke/CVA Free Text HPI Notes Free Text HPI Notes Patient is a 76-year-old male who presents to [facility] emergency department with altered mental status. Patient has a history of strokes and hypertension. Patient is on Eliquis. He was brought in as a code stroke alert for difficulty speaking. Patient does not have any focal weakne ss that is noted. Patient is very hard of hearing, however he can fol low commands. Currently patient denies chest pain or shortness of breath. He has no add itional complaints at this time. General Confirmed Patient Yes Patient Type New patient Initial Greet Date/Time 08/18/22 0134 Risk-Stroke/CVA Risk Stratification )( Initial NIH Stroke Scale )( Initial NIH Stroke Scale Response Value NIHSS Applicable? Yes 0 Level of Consciousness Alert and responsive (0) 0 Ask Month Age Both questions right (0) 0 Blink Eyes/Squeeze Hands Performs both tasks (0 ) 0 Horizontal EOM NL side/side eye mvmt (0) 0 Visual Sanchez No visual loss (0) 0 Facial Palsy Normal symmetry (0) 0 Right Arm Motor Drift (10s) No drift 10 sec (0) 0 Left Arm Motor Drift (10s) No drift 10 sec (0) 0 Right Leg Motor Drift (5s) No drift 5 sec (0) 0 Left Leg Motor Drift (5s) No drift 5 sec (0) 0 Limb Ataxia FNF/Heel-Torres No ataxia (0) 0 Sensation (Arms/Legs/Face) No sensory loss (0) 0 Language Aphasia No aphasia, normal (0) 0 Dysarthria No dysarthria (0) 0 Extinction/Inattention No extinct/inattent (0) 0 Total 0 NIH Stroke Score Timing Time 0134 Date 08/18/22 VAN Score VAN Score Negative Weakness VAN Result VAN negative Easton Coma Score: Copyright Sir Ryan Olmstead Copyright Sir Chato Olmstead Eye opening: (4) Spontaneous Verbal response: (4) Confused Best motor response: (6) Obeys commands GCS Score: 14 Modified Aurora Scale 2- Slight disability Free Text Risk Notes Free Text Risk Notes Pt is not a candidate for mechanical thrombectom y, no LVO, VAN neg Pt is not a candidate for IV Tenecteplase as he is on direct anticoagulant medication Review of Systems ROS Statements All systems rev neg except as marked. PMH-Stroke/CVA Stated Complaint STROKE Allergies Coded Allergies: cetirizine (ANAPHYLAXIS 12/01/21) Home Medications Discontinued Scripts Lidocaine (Lidoderm 5%) 1 PATCH TRANSDERM DAILY Lidocaine (Lidoderm 5%) 1 PATCH TRANSDERM ALEXSANDER Y #30 PATCH Prov: 02/28/22 DC: 08/18/22 1100 Patient stopped taking Spironolactone (Aldactone) 50 MG PO DAILY Spironolactone (Aldactone) 50 MG PO DAILY #30 T AB Prov: 12/05/21 DC: 08/18/22 1100 Patient stopped taking Nifedipine (Procardia XL) 90 MG PO Q12H Nifedipine (Procardia XL) 90 MG PO Q12H #60 TAB Prov: 12/05/21 DC: 08/18/22 1100 Patient stopped taking Reported Medications Apixaban (Eliquis) 5 MG PO BID Acetaminophen (Tylenol) 500 MG PO ASDIR Cyanocobalamin (Vitamin B-12) 1,000 MCG PO DAILY Metoprolol Tartrate (Lopressor) 25 MG PO BID Gabapentin (Neurontin) 300 MG PO TID Fluticasone Propionate (Flonase 50 Mcg/Act Nasal ) 2 SPRAY NASAL DAILY Lisinopril 40 MG PO DAILY Tamsulosin Er (Flomax) 0.4 MG PO DAILY IBUPROFEN (ADVIL) 800 MG PO TID PRN PAIN Cetirizine (Zyrtec) 10 MG PO DAILY Amlodipine (Norvasc) 5 MG PO DAILY Metformin (Glucophage) 1,000 MG PO BID Cholecalciferol (Vitamin D3) (Vitamin D3) 5,000 UNITS PO DAILY Discontinued Reported Medications Aspirin Ec 81 MG PO DAILY Magnesium Oxide Meloxicam (Mobic) 15 MG PO DAILY Naproxen (Naprosyn) 375 MG PO BID Glipizide (Glucotrol) Atorvastatin (Lipitor) Sumatriptan (Imitrex) 50 MG PO Q2H PRN MIGRAINE Meloxicam (Mobic) 15 MG PO DAILY Additional Medical History Neg Past Surgical History: Reports: Hip procedure. Additional Family History Reviewed and noncontributory Alcohol Use Denies EtOH use Drug Use Denies recreational drugs Smoking status for patients 13 years old or olde r: Never Smoker Other Social History Local resident, Good social support Physical Exam Vital Signs Vital Signs First Documented: Result Date Time Pulse Ox 99 08/18 0154 B/P 189/77 08/18 0154 B/P Mean 114 08/18 0154 O2 Delivery Room air 08/18 0154 Temp 37.1 08/18 0154 Pulse 80 08/18 0154 Resp 24 08/18 0154 Last Documented: Result Date Time Pulse Ox 98 08/18 0417 B/P 170/75 08/18 0417 B/P Mean 106 08/18 0417 O2 Delivery Room air 08/18 0417 Pulse 79 08/18 0417 Resp 18 08/18 0417 Temp 37.1 08/18 0154 Review of Vital Signs Reviewed Free Text PE Notes Free Text PE Notes Gen/Const: awake, alert, no acute distress, well appearing MS Head: normocephalic, atraumatic Neck: no midline ttp Eyes: PERRL b/l; EOM intact Ears/Nose/Throat: normal posterior oropharynx, T Ms clear b/l Resp/Chest: lungs CTAB; no wheezes, rales, rhonc hi, retractions Cardiovascular: rrr; no murm urs, gallops, or rubs; capillary refill less than 2 seconds; no chest ttp Abdomen/GI: soft, nontender, nondistended, bowel sounds equal and reactive MS Upper Extremity: Atraumatic, no abnormalities noted MS Lower Extremity: Atraumatic; b/l lower extrem ity edema present MS Back: No midline tenderness palpation; no nicholas p-offs or deformities Skin: Normal color; no rash present; no petechia e or purpura : Deferred Rectum: Deferred Neurologic: Awake, alert, or iented x2; cranial nerves II through XII intact; no motor deficits; no sensory deficit; normal cereb ellar function Psyhchiatric: normal mood/affect Interpretation Diagnostics Lab Results Interpretation Considerations Independ review imaging, Reviewed prior records Results Laboratory Tests 08/18/22143: [Embedded Image Not Available] 08/18/22143: [Embedded Image Not Available] Laboratory Tests: 08/18 08/18 08/18 08/18 0144 0144 0144 0144 Chemistry Sodium (135 - 145 mmol/L) 134 L Potassium (3.6 - 5.0 mmol/L) 3.1 L Chloride (101 - 111 mmol/L) 103 Carbon Dioxide (21 - 31 mmol/L) 23 BUN (6 - 20 mg/dl) 22 H Creatinine (0.64 - 1.27 mg/dL) 1.43 H Glomerular Filtr Rate (>60) 50 L Glucose (70 - 100 mg/dl) 192 H Calcium (8.5 - 10.5 mg/dL) 8.8 Troponin I (0.000 - 0.034 ng/mL) <0.020 Vitamin B12 (180 - 914 pg/ml) 745 25-OH Vitamin D Total (30 - 100 ng/ml) 34 TSH (0.450 - 5.330 uIU/ml) 1.509 Coagulation INR 1.2 PTT (Tita) (25 - 38 SECONDS) 36 PT Patient/Control Mix (9.5 - 13.4 SECONDS) 13. 8 H Hematology WBC (3.2 - 11.5 x10 3/uL) 6.6 RBC (4.20 - 5.70 x10(6)/m) 4.25 Hgb (12.9 - 17.3 g/dL) 13.5 Hct (38.7 - 51.0 %) 38.2 L MCV (80 - 100 fL) 90 MCH (26.7 - 33.3 pg) 31.8 MCHC (30.0 - 34.0 g/dL) 35.3 H RDW (11.3 - 14.5 %) 12.6 Plt Count (130 - 408 x10 3/uL) 143 MPV (8.6 - 12.6 fL) 11.1 Neut % (Auto) (40.0 - 70.0 %) 40.2 Lymph % (Auto) (20 - 40 %) 42.7 H [place] % (Auto) (1 - 10 %) 8.8 Eos % (Auto) (0.0 - 5.0 %) 7.1 H Baso % (Auto) (0.0 - 1.0 %) 0.9 Neut # (Auto) (1.6 - 7.2 x10 3/uL) 2.6 Lymph # (Auto) (1.1 - 2.7 x10 3/uL) 2.81 H [place] # (Auto) (0.3 - 0.8 x10 3/uL) 0.6 Eos # (Auto) (0.0 - 0.5 x10 3/uL) 0.5 Baso # (Auto) (0.0 - 0.1 x10 3/uL) 0.1 Immature Gran % (0.0 - 2.0 %) 0.3 Nucleated RBC % (0.0 - 0.9 %) 0.0 01/06 0230 Urines Urine Color (YELLOW) YELLOW Urine Appearance (CLEAR) Clear Urine pH (5.0 - 9.0) 7.0 Ur Specific [place] (1.001 - 1.030) 1.027 Urine Protein (NEGATIVE) 3+ H Urine Glucose (UA) (NEGATIVE) 1+ Urine Ketones (NEGATIVE) NEGATIVE Urine Blood (NEGATIVE) NEGATIVE Urine Nitrite (NEGATIVE) NEGATIVE Urine Bilirubin (NEGATIVE) NEGATIVE Urine Urobilinogen (<=1.0) NEGATIVE Ur Leukocyte Esterase (NEGATIVE) NEGATIVE Urine RBC (0 - 5 /HPF) 0-5 Urine WBC (0 - 5 /HPF) 0-5 Ur Epithelial Cells (NONE - FEW /LPF) RARE Urine Bacteria (NONE SEEN /HPF) None Urine Mucus (NONE SEEN /LPF) 1+ Urine Ascorbic Acid NEGATIVE Recent Impressions: CAT SCAN - CT ANGIO NECK 08/18 129 Report Impression - Status: SIGNED Entered: 08/18/2022713 IMPRESSION: Normal CTA of the neck and brain. Ex amination unchanged from prior CTA head on 04/04/2022. (All qualitative and quantitative assessments of carotid bifurcation and proximal internal carotid artery stenosis ar e made referencing the distal internal carotid artery {NASCET criteria} .) Impression By: Aurea Garza Mai, MD CAT SCAN - CT ANGIO HEAD 08/18 129 Report Impression - Status: SIGNED Entered: 08/18/2022713 IMPRESSION: Normal CTA of the neck and brain. Ex amination unchanged from prior CTA head on 04/04/2022. (All qualitative and quantitative assessments of carotid bifurcation and proximal internal carotid artery stenosis ar e made referencing the distal internal carotid artery {NASCET criteria} .) Impression By: Aurea Garza Mai, MD CAT SCAN - CT HEAD/BRAIN W/O CONT 08/18 129 Report Impression - Status: SIGNED Entered: 08/18/2022 0153 IMPRESSION: No evidence of acute intracranial he morrhage or significant change since 04/03/2022. Impression By: Clarice Thapa MD RADIOLOGY - XR CHEST 1 V 08/18 020 Report Impression - Status: SIGNED Entered: 08/18/2022 0221 IMPRESSION: No evidence to suggest active diseas e or significant change since 12/01/2021. Impression By: Clarice Thapa MD Lab Statement Laboratory studies reviewed and considered in th e medical decision-making. Imaging Statement Radiographic studies reviewed and considered in the medical decision-making. Point of Care Testing Pulse Oximetry Pulse Ox % 99 On: Room air Interpretation Interpreted by wa Time 0154 ECG #1 Interpretation Text/Dict Note Normal sinus rhythm; no ST changes; norm al intervals; normal axis; no previous EKGs available for comparison; I personally inte rpreted this EKG Date 08/18/22 Time 0158 Interpreted by ED physician Rate 77 MDM-Stroke/CVA Free Text MDM Notes Free Text MDM Notes History as noted. History obtained from EMS and family members. History also obtained from patient. Patie nt here with what was reportedly transient weakness and slurred speech. This had resolved by the rick e the patient arrived to the emergency department. Patient is on a direct ant icoagulant. Patient was taken directly to CT scan for evaluation. CT scan did not show evidence of intracranial hemorrhage. Patient is not a candid ate for IV tPA secondary to resolution of symptoms and being on a di rect anticoagulant. All other labs and imaging were independently reviewed by m lesviaelf. External records were reviewed. We will admit to inpatient unit for further work -up and treatment. Case was discussed with hospitalist. Patient is clinicall y stable and otherwise well- appearing at time of admission. Stroke Thrombolytic Therapy IV Thrombolytic Rec'd at Outside Hospital? No Administered IV Thrombolytic? No, exclusion crit odetteia Exclusion Criteria anticoagulant, resolution of sx ED Course Medication(s) Ordered Medication(s) Ordered: Cardiovascular Drugs Sig/Yuval Start time Last Medication Dose Route Stop Time Status Admin Nicardipine HCl 200 ML X1ED STA 08/18 0135 DC 0 08/18 IV 08/26 0934 0156 Diagnostic Agents Sig/Yuval Start time Last Medication Dose Route Stop Time Status Admin Iopamidol 0 .STK-MED ONE 08/18 0139 DC .ROUTE Gastrointestinal Drugs Sig/Yuval Start time Last Medication Dose Route Stop Time Status Admin Ondansetron HCl 4 MG X1ED STA 08/18 0234 DC / IV 08/18 0235 0239 Patient Discharge Departure Vital Signs/Condition Vital Signs First Documented: Result Date Time Pulse Ox 99 08/18 0154 B/P 189/77 08/18 0154 B/P Mean 114 08/18 0154 O2 Delivery Room air 08/18 0154 Temp 37.1 08/18 0154 Pulse 80 08/18 0154 Resp 24 08/18 0154 Last Documented: Result Date Time Pulse Ox 98 08/18 0417 B/P 170/75 08/18 0417 B/P Mean 106 08/18 0417 O2 Delivery Room air 08/18 0417 Pulse 79 08/18 0417 Resp 18 08/18 0417 Temp 37.1 08/18 0154 All vital signs available at the time of this en try have been reviewed. Condition Stable, Improved Clinical Impression Clinical Impression Primary Impression: Altered mental status Secondary Impressions: Acute kidney injury, Hype rglycemia, Hypokalemia Disposition Decision Admit Admit Physician Name Yunior Mora MD Admit Physician Hospitalist Request Time 446 Request Date 08/18/22 )( Admission Accepts Yes )( Accepted Time 446 )( Accepted Date 08/18/22 Call Information will see patient, agrees with eval Discharge/Care Plan Counseled Regarding Diagnosi s, Lab results, Imaging studies, Need for admission (Auto) Prescriptions Current Visit Scripts Atorvastatin (Lipitor) 80 MG PO BEDTIME Atorvastatin (Lipitor) 80 MG PO BEDTIME #30 TAB Ref 1 Route: ORAL Glipizide (Glucotrol) 5 MG PO BID Glipizide (Glucotrol) 5 MG PO BID #60 TAB Ref 1 Route: ORAL Admit Note I have spoken with the patie nt and/or caregivers. I have explained the patient's condition, diagnoses and mario atment plan based on the information available to me at this time. I have answered the patient's and/ or caregiver's questions and addressed any concerns. The patient and/or careg tyra have as good an understanding of the patient 's diagnosis, condition and treatment plan as can be expected at this point. The patient has been stabilized within the capability of the emergency department. The patient wi ll be transported for further care and management or will be moved to an observation or inpatient service. I have communicated with the staff or medical p ractitioner taking over this patient's care. at 0427 RPT #:[id number] END OF REPORT 2022-04-04 15:03:00-00:00 [facility] ([facility]) EMERGENCY PROVIDER REPORT REPORT#:[id number] REPORT STATUS: Signed DATE:04/04/22 TIME: 1503 PATIENT: PRISCILA CONCEPCION JR UNIT #: [id number] ROOM: [facility] BED: 3 AGE: 76 SEX: M PCP PHYS: No Primary or Family Ph ysician SERVICE AUTHOR: Harvey Perez MD * ALL edits or amendments must be made on the el ectronic/computer document * HPI-Stroke/CVA Free Text HPI Notes Free Text HPI Notes This is a 76-year-old male w ith a past medical history significant for recurrent TIAs, diabetes presenting with a recurrent acute left hand and left mouth numbness with possible change in speech lasting approximately 30 minutes and then completely resolving. Patient states they h ave been approximately 30 minutes prior to arrival to the ED. Patient states symptoms completely resolved and has no focal neurodeficits on arriva l. States that this is happened before has been admitted and receiv ed a full stroke work-up only to come back negative. Patient denies any associat ed headache, confusion, numbness, tingling, weakness in the arms, legs, word finding difficulties, un steady gait about standing. Patient not taking any blood thinners. Denies an y recent head trauma. Denies any fevers, neck pain/stiffness, photophobia. De nies any urinary symptoms including but not limited to dysuria, hematuria, urinary frequency, foul- smelling. General Confirmed Patient Yes Initial Greet Date/Time 04/03/222100 Presentation Chief Complaint: Right Side Weakness, hand (Left ), Numbness, face (L mouth) Onset of Sx (Nursing) Date: 04/03/22 Time: 1829 )( Last Known Well )( Time 1830 Date 04/03/22 Hx Obtained From Patient Sudden in Onset? 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 Associated Other Pt denies other symptoms Exacerbated by Nothing Relieved by Nothing Risk-Stroke/CVA Risk Stratification )( Initial NIH Stroke Scale )( Initial NIH Stroke Scale Response Value NIHSS Applicable? Yes 0 Level of Consciousness Alert and responsive (0) 0 Ask Month Age Both questions right (0) 0 Blink Eyes/Squeeze Hands Performs both tasks (0 ) 0 Horizontal EOM NL side/side eye mvmt (0) 0 Visual Sanchez No visual loss (0) 0 Facial Palsy Normal symmetry (0) 0 Right Arm Motor Drift (10s) No drift 10 sec (0) 0 Left Arm Motor Drift (10s) No drift 10 sec (0) 0 Right Leg Motor Drift (5s) No drift 5 sec (0) 0 Left Leg Motor Drift (5s) No drift 5 sec (0) 0 Limb Ataxia FNF/Heel-Torres No ataxia (0) 0 Sensation (Arms/Legs/Face) No sensory loss (0) 0 Language Aphasia No aphasia, normal (0) 0 Dysarthria No dysarthria (0) 0 Extinction/Inattention No extinct/inattent (0) 0 Total 0 Review of Systems ROS Statements All systems rev neg except as marked. Complete sys rev neg except as marked. Basic Review of Systems Basic ROS : No dysuria/frequency, HEM: No blee ding/bruising Focused Review of Systems Constitutional Reports: Fatigue. Denies: Chills, Fever, Letharg y, Malaise, Recent wt loss, Weakness - generalized. Ears/Nose/Throat Denies: Anosmia, Ear drainag e R, Ear drainage L, Ear drainage bilat, Ear ringing R, Ear ringing L, Ear ringing bilat, Earache R, Earache L, Earache bilat, Hearing loss R, Hearing loss L, Hearing loss bilat, Mouth pain, Nasal congestion , Nose bleeding, Sinus problem, Sore throat, Thr oat pain, Throat swelling, Tongue pain, Tongue swelling, Toothache, Voice c hange. Respiratory Denies: Cough, non-productive, Cough, productive , Dyspnea on exertion, Hemoptysis, Parox nocturnal dyspnea, Pleuritic p ain, Shortness of breath, Wheezing. Cardiovascular Denies: Chest pain, Dyspnea on exertion, Edema, Orthopnea, Palpitations, Parox nocturnal dyspnea, Syncope. GI Denies: Abdominal pain, Anorexia, Belching, Bloo dy/tarry stool, Constipation, Diarrhea, Dysphagia, Hematemesis, Hemato chezia, Mucousy stool, Melena, Nausea, Rectal pain, Vomiting. Neurologic Reports: Dizziness. Denies: Abnormal movement, B ladder dysfunction, Bowel dysfunction, Change LOC, Confusion, Focal weakne ss, Generalized weakness, Headache, Lightheaded, Numbness, Problem walking , Seizure, Shaking, Slurred speech, Spinning sensation, Syncope, Tin gling, Unable to speak, Vision change. PMH-Stroke/CVA Stated Complaint TIA Allergies Coded Allergies: cetirizine (ANAPHYLAXIS 12/01/21) Home Medications Active Scripts Spironolactone (Aldactone) 50 MG PO DAILY Spironolactone (Aldactone) 50 MG PO DAILY #30 T AB Prov: 12/05/21 Nifedipine (Procardia XL) 90 MG PO Q12H Nifedipine (Procardia XL) 90 MG PO Q12H #60 TAB Prov: 12/05/21 Reported Medications Aspirin Ec 81 MG PO DAILY Cyanocobalamin (Vitamin B-12) 1,000 MCG PO DAILY Metoprolol Tartrate (Lopressor) 25 MG PO BID Glipizide (Glucotrol) Apixaban (Eliquis) 5 MG PO BID Atorvastatin (Lipitor) Magnesium Oxide Gabapentin (Neurontin) 300 MG PO TID Meloxicam (Mobic) 15 MG PO DAILY Sumatriptan (Imitrex) 50 MG PO Q2H PRN MIGRAINE Fluticasone Propionate (Flonase 50 Mcg/Act Nasal ) 2 SPRAY NASAL DAILY Lisinopril 40 MG PO DAILY Tamsulosin Er (Flomax) 0.4 MG PO DAILY Smoking status for patients 13 years old or olde r: Unknown,if ever smoked Other Social History Local resident, Good social support Physical Exam Vital Signs Vital Signs First Documented: Result Date Time Pulse Ox 99 04/03 2104 B/P 155/78 04/03 2104 B/P Mean 103 04/03 2104 O2 Delivery Room air 04/03 2104 Temp 98.4 04/03 2104 Pulse 70 04/03 2104 Resp 18 04/03 2104 Last Documented: Result Date Time Pulse Ox 95 04/03 2326 B/P 177/91 04/03 2326 B/P Mean 119.4 04/03 2326 Temp 97.3 04/03 2326 Pulse 59 04/03 2326 Resp 18 04/03 2326 O2 Delivery Room air 04/03 2104 Review of Vital Signs Reviewed, Vital signs norm al Basic Physical Exam Basic PE HEAD: Atraumatic/NC , EYES: PERRL, conj clear, ENT: Membranes moist, ABD : Soft/non-tender, EXT: No g ross abnormality, SKIN: No rashes, warm/dry, PSYCH: NL thought content Focused PE General/Const General/Const Awake, Alert, No acute distress MS Head Head Atraumatic, Normocephalic MS Neck Neck Atraumatic, Supple, No meningismus , Full range of motion, No adenopathy, No swelling, Non-tender, No midline vert ebral tend, No masses, No crepitus, No JVD, No carotid bruit, Thyroid NL, No tracheal d eviation Resp/Chest Respiratory/Chest Atraumatic, Breath sounds NL, Breath sounds = bilat, No respiratory distress, No rales, No rhonchi, No w heezing, No retractions, No stridor, No chest tenderness, No chest wall defo rmity, No crepitus Cardiovascular Cardiovascular Heart rate NL, Regular rhythm, H eart sounds NL, No gallop, No murmurs, No rubs, Cap refill not delayed, Periph eral circulation NL, Pulses = bilaterally, No gross BP differential Neurologic Neurologic Oriented X3, Speech NL, No m otor deficits, No sensory deficits, CN II - XII intact, Reflexes equal bilat, Cerebella r NL, Memory NL, Gait NL Interpretation Diagnostics Lab Results Interpretation Results Laboratory Tests 04/03/222120: [Embedded Image Not Available] Laboratory Tests: 04/03 Chemistry Sodium (135 - 145 mmol/L) 138 Potassium (3.6 - 5.0 mmol/L) 3.5 L Chloride (101 - 111 mmol/L) 106 Carbon Dioxide (21 - 31 mmol/L) 24 BUN (6 - 20 mg/dl) 17 Creatinine (0.64 - 1.27 mg/dL) 1.25 Glomerular Filtr Rate (>60) 60 Glucose (70 - 100 mg/dl) 209 H Calcium (8.5 - 10.5 mg/dL) 8.7 Troponin I (0.000 - 0.034 ng/mL) <0.020 Hematology WBC (3.2 - 11.5 x10 3/uL) 6.6 RBC (4.20 - 5.70 x10(6)/m) 4.07 L Hgb (12.9 - 17.3 g/dL) 13.0 Hct (38.7 - 51.0 %) 36.9 L MCV (80 - 100 fL) 91 MCH (26.7 - 33.3 pg) 31.9 MCHC (30.0 - 34.0 g/dL) 35.2 H RDW (11.3 - 14.5 %) 12.8 Plt Count (130 - 408 x10 3/uL) 144 MPV (8.6 - 12.6 fL) 11.0 Neut % (Auto) (40.0 - 70.0 %) 49.2 Lymph % (Auto) (20 - 40 %) 32.5 [place] % (Auto) (1 - 10 %) 8.1 Eos % (Auto) (0.0 - 5.0 %) 9.0 H Baso % (Auto) (0.0 - 1.0 %) 0.9 Neut # (Auto) (1.6 - 7.2 x10 3/uL) 3.2 Lymph # (Auto) (1.1 - 2.7 x10 3/uL) 2.14 [place] # (Auto) (0.3 - 0.8 x10 3/uL) 0.5 Eos # (Auto) (0.0 - 0.5 x10 3/uL) 0.6 H Baso # (Auto) (0.0 - 0.1 x10 3/uL) 0.1 Immature Gran % (0.0 - 2.0 %) 0.3 Nucleated RBC % (0.0 - 0.9 %) 0.0 Urines Urine Color (YELLOW) Dark yellow Urine Appearance (CLEAR) Clear Urine pH (5.0 - 9.0) 5.0 Ur Specific [place] (1.001 - 1.030) 1.029 Urine Protein (NEGATIVE) 3+ H Urine Glucose (UA) (NEGATIVE) 2+ Urine Ketones (NEGATIVE) Trace H Urine Blood (NEGATIVE) NEGATIVE Urine Nitrite (NEGATIVE) NEGATIVE Urine Bilirubin (NEGATIVE) NEGATIVE Urine Urobilinogen (<=1.0) NEGATIVE Ur Leukocyte Esterase (NEGATIVE) NEGATIVE Urine RBC (0 - 5 /HPF) 0-5 Urine WBC (0 - 5 /HPF) 0-5 Ur Epithelial Cells (NONE - FEW /LPF) RARE Urine Bacteria (NONE SEEN /HPF) None Hyaline Casts (0 - 1 /LPF) 6-10 H Urine Mucus (NONE SEEN /LPF) 1+ Urine Ascorbic Acid POSITIVE A Recent Impressions: CAT SCAN - CT HEAD/BRAIN W/O CONT 04/03 2155 Report Impression - Status: SIGNED Entered: 04/03/20222221 IMPRESSION: 1. No evidence of acute intracranial hemorrhage or mass effect. 2. No discrete territorial cortical infarct. 3. Moderate white matter microvascular change as seen previously. Impression By: Altaf - COLLEEN SMITH MD MDM-Stroke/CVA Free Text MDM Notes Free Text MDM Notes MDM is complex well considering a broad differen tial diagnosis with risk of significant morbidity and/or mortality. I will obtain and review comprehensive labs and appropriate imaging as warranted. Consi dering various diagnoses including but not limited to CVA versus TIA vers us intracranial hemorrhage versus intracranial mass toshia onel hydrocephalus versus encephalitis versus seizure versus complex migraine vs other possible etiolo gies. Will treat patient's symptoms/pain with the following and reassess. Treatments: Aspirin Re-Evaluation/Progress #1 Text/Dict Note Symptoms and clinical status have not improved sufficiently but remained stable With interventions/medications that we a dministered. I will admit this patient for further evaluation, monitoring and managemen t including aspirin, frequent neurochecks, MRI imaging, neurology specialist c onsultation. Patient/family updated on results and am enable to care plan. All questions and concerns have been addressed at this time. Communicated with appropriate hospital s ervice who is accepted the patient for admission. Stroke Thrombolytic Therapy Administered IV Thrombolytic? No, not indicated Patient Discharge Departure Vital Signs/Condition Vital Signs First Documented: Result Date Time Pulse Ox 99 04/03 2104 B/P 155/78 04/03 2104 B/P Mean 103 04/03 2104 O2 Delivery Room air 04/03 2104 Temp 98.4 04/03 2104 Pulse 70 04/03 2104 Resp 04/03 Last Documented: Result Date Time Pulse Ox 95 04/03 2326 B/P 177/91 04/03 2326 B/P Mean 119.4 04/03 2326 Temp 97.3 04/03 2326 Pulse 59 04/03 2326 Resp 04/03 O2 Delivery Room air 04/03 2104 All vital signs available at the time of this en try have been reviewed. Condition Stable, Guarded Clinical Impression Clinical Impression Primary Impression: TIA (transient ischemic romulo ck) Secondary Impressions: Left sided numbness, Stro ke-like episode Disposition Decision Admit Admit Physician Name Yunior Mora MD Admit Physician Hospitalist Request Time 0000 Request Date 04/04/22 )( Admission Accepts Yes )( Accepted Time 0000 )( Accepted Date 04/04/22 Call Information will see patient, agrees with eval, agrees with plan Discharge/Care Plan Counseled Regarding Diagnosi s, Lab results, Imaging studies, Need for admission Admit Note I have spoken with the patie nt and/or caregivers. I have explained the patient's condition, diagnoses and mario atment plan based on the information available to me at this time. I have answered the patient's and/ or caregiver's questions and addressed any concerns. The patient and/or careg tyra have as good an understanding of the patient 's diagnosis, condition and treatment plan as can be expected at this point. The patient has been stabilized within the capability of the emergency department. The patient wi ll be transported for further care and management or will be moved to an observation or inpatient service. I have communicated with the staff or medical p ractitioner taking over this patient's care. Electronically Signed by Harvey Perez MD on 0 04/25/22 at 1525 RPT #:[id number] END OF REPORT 2022-04-04 12:25:00-00:00 [facility] internal med. d/c summary report #: [id number] report status: signed date: 04/04/22 time: 1225 patient: priscila concepcion jr unit #: [id number] room #: n.ersd bed: 3 : 44 age: 76 sex: m attend: yunior mora md adm dt: 04/03/22 author: glo smith do attention *edits and/or addenda must be made in patient ke eper for this note. * * edits and ammendments created in [employer] are not visible * * in patient keeper or the legal medical record (hpf). * -- problems/procedures -- admission date: 04/03/22 discharge date: 04/04/22 discharge diagnoses: - tia (transient ischemic attack) - afib - essential hypertension - hyperlipidemia -- hospital course -- hospital course: 76 y/o male male with pmhx of cva on brett lisa, afib s/p ablation, htn, hlp, and bph, who presented with transient facial and lef t arm numbness and weakness. patient was seen by neurolog y and ruled out for acute stroke. ct head, cta head and neck, and mri brain without acute abnormalit ies. neurology recommended addition of aspirin to eliquis. as aliciagabe nt's symptoms resolved and patient was at baseline functional status, patient was disch arged home to follow-up with his pcp and outpatient neurologist. -- discharge medications -- allergies: cetirizine (unknown - allergy) -- discharge instructions -- addtional discharge instructions: emergency instructions: the patient was instruct ed to present to the nearest emergency department or call 911 should their sy mptoms return or worsen.; -- objective -- vitals (04/03 12:25 - 04/04 12:25): temperature f: 98.4 temperature c: 36.3 (36.3 - 37.2) pulse rate 59 (58 - 87) respiratory rate: 19 (16 - 25) bp: 158/70 (143/67 - 211/96) -exam- general: nad head: normocephalic, atraumatic. chest: grossly normal appearance. lungs: clear bilaterally with normal respiratory effort. heart: regular rate and rhythm, normal s1, s2 abdomen: soft, non-tender, no organomegaly, no m asses noted. musculoskeletal: moves all extremities extremities: no clubbing, no cyanosis, 1+ pedal edema. neurological: aox3; strength in b/l ue 5/5; rle 4+/5 (chronic due to prior hip surgery) and lle 5/5 skin: intact without significant lesions, or darryl hes. psychiatric: calm -- data -- labs hgba1c - glycosylated hgb (04/04/22 02:01) glycosylated hemoglobin (ha1c) 6.2 h lipid profile (coronary risk) (04/04/22 02:01) triglycerides 264 h cholesterol 134 hdl cholesterol 38 lipoprotein ldl 44 coronary risk factor 3.53 basic metabolic panel (04/04/22 02:01) sodium 135 potassium 3.2l l chloride 104 carbon dioxide 23 glucose 132h h blood urea nitrogen 18 glomerular filtration rate >=60 max estimate creatinine 1.02 calcium 8.6 cbc w/auto diff (04/04/22 02:01) white blood cell 6.8 red blood cell 4.10 l hemoglobin 13.0 hematocrit 36.8l l mean cell volume 90 mean cell hgb 31.7 mean cell hgb concentration 35.3 h red cell distribution width 12.8 platelet count 138 mean platelet volume 10.2 neutrophil % 48.3 immature granulocyte % 0.3 lymphocyte % 35.3 monocyte % 7.5 eosinophil % 7.9 h basophil % 0.7 nucleated rbc % 0.0 neutrophil # 3.3 lymphocyte # 2.40 monocyte # 0.5 eosinophil # 0.5 basophil # 0.1 urinalysis complete (04/03/22 21:21) ua color dark yellow ua appearance clear ua glucose dipstick 2+ ua bilirubin dipstick negative ua ketone dipstick trace h ua specific gravity 1.029 ua blood dipstick negative ua ph dipstick 5.0 ua protein dipstick 3+ h ua urobilinogen dipstick negative ua nitrite dipstick negative ua ascorbic acid dipstick positive a ua leukocyte esterase dipstick negative ua wbc 0-5 ua rbc 0-5 ua epithelial cells rare ua bacteria none ua hyaline cast 6-10 h ua mucus 1+ cbc w/auto diff (04/03/22 21:21) white blood cell 6.6 red blood cell 4.07 l hemoglobin 13.0 hematocrit 36.9l l mean cell volume 91 mean cell hgb 31.9 mean cell hgb concentration 35.2 h red cell distribution width 12.8 platelet count 144 mean platelet volume 11.0 neutrophil % 49.2 immature granulocyte % 0.3 lymphocyte % 32.5 monocyte % 8.1 eosinophil % 9.0 h basophil % 0.9 nucleated rbc % 0.0 neutrophil # 3.2 lymphocyte # 2.14 monocyte # 0.5 eosinophil # 0.6 h basophil # 0.1 tropi (04/03/22 21:21) troponin-i <0.020 basic metabolic panel (04/03/22 21:21) sodium 138 potassium 3.5l l chloride 106 carbon dioxide 24 glucose 209h h blood urea nitrogen 17 glomerular filtration rate 60 creatinine 1.25 calcium 8.7 -- quality -- -medications- - i attest that the foregoing medication list i n the medical record is true, accurate, and complete to the best of my knowled ge. -advanced care plan >65- patient has an advance care plan: yes patient has a surrogate decision maker: yes -vte prophylaxis -general- yes type of vte other anticoagulants -- attestation -- time spent on patient care: - direct care activities / care coordination: - i have reviewed the history and repeated the watkins elements - i have seen and examined this patient - i have reviewed the progress in the clinical course since the last examination - i have discussed the alicia ent's condition with other members of the care team additional detail: time spent: >45min code status: full signed in patientkeeper by glo smith do on 0 04/04/22 at 12:34 electronically signed by glo smtih do on at 1234 attention *edits and/or addenda must be made in patient ke eper for this note. * * edits and ammendments created in [employer] are not visible * * in patient keeper or the legal medical record (hpf). * [facility] #: [id number] end of report 2022-04-04 12:21:00-00:00 [facility] ([facility] internal med. clinical note report #: [id number] report status: signed date: 04/04/22 time: 1221 patient: priscila concepcion jr unit #: [id number] room #: [facility] bed: 3 : 44 age: 76 sex: m attend: yunior mora md adm dt: 04/03/22 author: glo smith do attention *edits and/or addenda must be made in patient ke eper for this note. * * edits and ammendments created in [employer] are not visible * * in patient keeper or the legal medical record (hpf). * -- notation -- notation: patient was seen this morning with his son, rush smith, in the er patient states he feels well his symptoms resolved last night at time of admi ssion he wanted to go home last night as he felt well and at baseline he is anxious to go home today states he has a pcp and an outpatient neurologis t; already has a follow-up appointment with his outpatient neurologist [facility], cta head neck and mri brain without acu te abnormalities marcial lui, repleted discussed with dr. lazo from neurology, belpre for discharge home with addition of aspirin; he is already on eliquis at home signed in patientkeeper by glo smith do on 0 04/04/22 at 12:25 electronically signed by glo smith do on at 1225 attention *edits and/or addenda must be made in patient [facility] for this note. * * edits and ammendments created in [employer] are not visible * * in patient keeper or the legal medical record ([facility]). * rpt #: [id number] end of report 2022-04-04 11:02:00-00:00 [facility] ([facility]) med order sheet report #: [id number] report status: signed date: 04/04/22 time: 1102 patient: priscila concepcion jr unit #: [id number] room #: n.ersd bed: 3 : 44 age: 76 sex: m attend: yunior mora md adm dt: 04/03/22 author: glo smith do attention *edits and/or addenda must be made in patient [facility] for this note. * * edits and ammendments created in [employer] are not visible * * in patient keeper or the legal medical record ([facility]). * discharge medication reconciliation hosp: aspirin ec tab (ecotrin tab) dose: 81 mg po daily stopped hospital medications dc'd: potassium chloride er tab (k dur tab) 60 m eq po now onceelectronically signed in patientkeeper by glo garcia on 11:02 electronically signed by glo smith do on at 1102 attention *edits and/or addenda must be made in patient ke eper for this note. * * edits and ammendments created in [facility] are not visible * * in patient keeper or the legal medical record (hpf). * rpt #: [id number] end of report 2022-04-04 11:01:00-00:00 [facility] ([facility]) med order sheet report #: [id number] report status: signed date: 04/04/22 time: 1101 patient: priscila concepcion jr unit #: [id number] room #: nersd bed: 3 : 44 age: 76 sex: m attend: yunior mora md adm dt: 04/03/22 author: glo smith do attention *edits and/or addenda must be made in patient ke eper for this note. * * edits and ammendments [facility] are not visible * * in patient keeper or the legal medical record (hpf). * discharge medication reconciliation stopped hospital medications dc'd: acetaminophen tab (tylenol tab) 650mg po q 6h prn pain 1-3/temp > 100.5/headachedc'd: bisacodyl supp (dulcolax sup p) 10mg rectal daily prn constipationdc'd: dextrose 50% 50 ml syringe (d5 0w 50 ml syringe) 50ml iv asdir prn bg<70dc'd: dextrose chewable tab (gluc ose chewable tab) 16gm po asdir prn bg 50-69 +can swallow +not npodc'd: de xtrose chewable tab (glucose chewable tab) 4gm po asdir prn bg 70-100 + sympt omaticdc'd: dextrose chewable tab (glucose chewable tab) 8gm po asdir prn bg 70-100 + symptomaticdc'd: glucagon inj (glucagon inj) 1mg subq asdir prn bg less than 70 no iv accessdc'd: hydralazine inj (apresoline inj) 10mg iv q6h prn sbp >180 or dbp >110dc'd: insulin (lispro) inj (ousmane log inj ) 0 units subq asdirdc'd: kcl 20meq + ns 1000ml (ns 1000ml + susan l 20meq) 20meq 100 mls/hr iv dc'd: melatonin tab 3mg po bedtime prn insomniad c'd: ondansetron inj (zofran inj) 4mg iv q6h prn nausea and vomitingdc'd: saman yethylene glycol powder (miralax powder) 1pkt po daily prn constipationd c'd: sodium chloride 0.9% (ns) 1000ml 75 mls/hr iv electronically signed i n patientkeeper by glo garcia on 04/04/22 11:01 electronically signed by glo smith do on at 1101 attention *edits and/or addenda must be made in patient ep for this note. * * edits and ammendments created in [employer] are not visible * * in patient keeper or the legal medical record (hpf). * rpt #: [id number] end of report 2022-04-04 10:52:00-00:00 [facility] ([facility] med order sheet report #: [id number] report status: signed date: 04/04/22 time: 1052 patient: carlene priscila nicholson unit #: [id number] room #: n.ersd bed: 3 : 44 age: 76 sex: m attend: yunior mora md adm dt: 04/03/22 author: glo smith do attention *edits and/or addenda must be made in patient [facility] for this note. * * edits and ammendments created in [employer] are not visible * * in patient keeper or the legal medical record (hpf). * discharge medication reconciliation discharge meds rec completed. no reconciled orde rs. the following hospital medications have not yet been reconciled: acetaminophen tab (tylenol tab) 650mg po q6h prn pain 1-3/temp > 100.5/headache bisacodyl supp (dulcolax supp) 10mg rectal daily prn constipation dextrose 50% 50 ml syringe (d50w 50 ml syringe) 50ml iv asdir prn bg<70 dextrose chewable tab (glucose chewable tab) 16g m po asdir prn bg 50-69 +can swallow +not npo dextrose chewable tab (glucose chewable tab) 4gm po asdir prn bg 70-100 + symptomatic dextrose chewable tab (glucose chewable tab) 8gm po asdir prn bg 70-100 + symptomatic glucagon inj (glucagon inj) 1mg subq asdir prn b g less than 70 no iv access hydralazine inj (apresoline inj) 10mg iv q6h prn sbp >180 or dbp >110 insulin (lispro) inj (humalog inj ) 0 units subq asdir kcl 20meq + ns 1000ml (ns 1000ml + kcl 20meq) 20 meq 100 mls/hr iv .q10h melatonin tab 3mg po bedtime prn insomnia ondansetron inj (zofran inj) 4mg iv q6h prn naus ea and vomiting polyethylene glycol powder (miralax powder) 1pkt po daily prn constipation sodium chloride 0.9% (ns) 1000ml 75 mls/hr iv .q 13h20m electronically signed in patientkeeper by glo garcia on 04/04/22 10:51 electronically signed by glo smith do on at 1052 attention *edits and/or addenda must be made in patient [facility] for this note. * * edits and ammendments created in [facility] are not visible * * in patient keeper or the legal medical record ([facility]). * rpt #: [id number] end of report 2022-04-04 09:42:00-00:00 [facility] ([facility] neurology consultation report #: [id number] report status: signed date: 04/04/22 time: 941 patient: carlene nicholsonpriscila albert unit #: [id number] room #: n.ersd bed: 3 : 44 age: 76 sex: m attend: yunior mora md [facility] dt: 04/03/22 author: kingsley lazo md attention *edits and/or addenda must be made in patient [facility] for this note. * * edits and ammendments created in [facility] are not visible * * in patient keeper or the legal medical record ([facility]). * -- assessment and plan -- general assessment: neurology inpatient consult assessment: this is a 76-year-old male with history of bph, hypertension, cva, tia, atrial fibrillation status post ablation on eliquis, wh o presented with numbness in the left face and arm. on exam, the patient is aaox3, no focal numbness or weakness. the cta of head and neck were unremarkable the brain mri showed atrophy and white matter ch grant, no acute changes. the ha1c was 6.2 %, ldl was 44 mg/dl. ua showed no uti. the patient has tia with transient numbness sin the left face and arm. recommendations: 1. start asa 81 mg daily, continue eliquis 5 mg bid and lipitor 80 mg daily 2. continue other home medications 3. follow with cardiology 4. pt, ot and dvt prevention reason for consultation/chief complaint: numbnes s in the left face and arm history of present illness: this is a 76-year-old male with history of bph, hypertension, cva, tia, atrial fibrillation status post ablation on eliquis, wh o presented with numbness in the left face and arm. he started to have numbness in the left face and arm around 8 pm on 04/03/2022. when he arrived at ed around 8:30 pm, the sympto ms are resolved. the patient denies headache, blurry vision, slur red speech, difficulty swallowing, focal numbness or weakness. review of systems: except as mentioned in the hp i, review of systems is essentially negative for the 10 major systems. past medical history: bph, hypertension, cva, ti a, atrial fibrillation status post ablation on eliquis past surgical history: rightn hip replacement allergies: nkda current [facility] medications: eliquis, lipitor, lis inopril, glipizide et al family history: non-contributory social history: non smoker, no etoh or drug abus e code: full physical exams: general appearance: appears stated age. lying on bed comfortably. heent: no tenderness in the scalp. normal carotid pulse without bruits. neck is supple. lungs: are clear to auscultation bilaterally. cardiac: normal s1, s2 without murmurs, gallops or rubs. abdomen: is soft. no distension or tenderness. gu: no bladder distension extremities: range of motion is normal in all li mbs. peripheral pulses are intact. mild edema in the legs skin and musculoskeletal system: no skin rash. n o tenderness in the muscles. others: no lymphadenopathy or bruise. neurological examinations: cognition function: patient is awake, alert, and orientated x3, language: fluent, normal comprehension. cranial nerves: perrla, eomi, no nystagmus, no v isual field cut, no sensation deficit on face, close eye tightly bilaterally, no facial droop. no hearing loss. soft palate elevation is symmetric. shrug shoulder symmetric. tongue protrudes in the middle line. motor: normal muscle tone and bulk. musc le strength: 5/5 in arms and 5/ in the legs sensory: reduced sensation in the distal lower e xtremities dtrs: 1/2 in biceps, triceps, and brachioradiali s bilaterally, 0/2 in the patellar and achilles tendons bilaterally. plantar reflex: down going toes bilaterally coordination: finger to nose to finger intact bilaterally. heel to torres: intact bilaterally gait: deferred abnormal movements: none the case was discussed with the care team i have personally seen this patient, reviewed the history and all the available data, performed the physical examination as docu mented above, and formulated the plan of care. also discussed with patient an d/or his family about the workup and treatment options as well as side eff ects of the medications. all questions the patient and her/his family have ar e answered. thank you for allowing me to take care of your p atient. kingsley lazo md neuro-hospitalist -- history -- past medical history: see h p -- allergies/home meds -- allergies: cetirizine (unknown - allergy) home medications: apixaban tab (eliquis tab) 5 mg po bid atorvastatin tab (lipitor tab) oral fluticasone prop nasal spray (flonase nasal spra y) 2 spray nasal daily gabapentin cap (neurontin cap) 300 mg po tid glipizide tab (glucotrol tab) oral imitrex tablet (sumatriptan succinate) 50 mg po q2h magnesium oxide tablet oral metoprolol tartrate tab (lopressor tab) 25 mg po bid mobic tab (meloxicam) 15 mg po daily vitamin b-12 tablet (cyanocobalamin (vitamin b-1 2)) 1000 mcg po daily -- objective -- vitals (04/03 09:42 - 04/04 09:42): temperature f: 98.4 temperature c: 36.3 (36.3 - 37.2) pulse rate 59 (58 - 87) respiratory rate: 19 (16 - 25) bp: 158/70 (143/67 - 211/96) -- data -- medications dextrose 8 gm po asdir prn insulin lispro 0 units subq asdir hydralazine hcl 10 mg iv q6h prn dextrose 50%-water 50 ml iv asdir prn dextrose 4 gm po asdir prn polyethylene glycol 3350 1 pkt po daily prn bisacodyl 10 mg rectal daily prn glucagon 1 mg subq asdir prn sodium chloride 0.9% 1000 ml iv .[id number] melatonin 3 mg po bedtime prn dextrose 16 gm po asdir prn na chlor 0.9%/pot chloride 20 meq iv .q10h ondansetron hcl/pf 4 mg iv q6h prn acetaminophen 650 mg po q6h prn labs lipid profile (coronary risk) (04/04/22 02:01) triglycerides 264 h cholesterol 134 hdl cholesterol 38 lipoprotein ldl 44 coronary risk factor 3.53 basic metabolic panel (04/04/22 02:01) sodium 135 potassium 3.2l l chloride 104 carbon dioxide 23 glucose 132h h blood urea nitrogen 18 glomerular filtration rate >=60 max estimate creatinine 1.02 calcium 8.6 cbc w/auto diff (04/04/22 02:01) white blood cell 6.8 red blood cell 4.10 l hemoglobin 13.0 hematocrit 36.8l l mean cell volume 90 mean cell hgb 31.7 mean cell hgb concentration 35.3 h red cell distribution width 12.8 platelet count 138 mean platelet volume 10.2 neutrophil % 48.3 immature granulocyte % 0.3 lymphocyte % 35.3 monocyte % 7.5 eosinophil % 7.9 h basophil % 0.7 nucleated rbc % 0.0 neutrophil # 3.3 lymphocyte # 2.40 monocyte # 0.5 eosinophil # 0.5 basophil # 0.1 urinalysis complete (04/03/22 21:21) ua color dark yellow ua appearance clear ua glucose dipstick 2+ ua bilirubin dipstick negative ua ketone dipstick trace h ua specific gravity 1.029 ua blood dipstick negative ua ph dipstick 5.0 ua protein dipstick 3+ h ua urobilinogen dipstick negative ua nitrite dipstick negative ua ascorbic acid dipstick positive a ua leukocyte esterase dipstick negative ua wbc 0-5 ua rbc 0-5 ua epithelial cells rare ua bacteria none ua hyaline cast 6-10 h ua mucus 1+ cbc w/auto diff (04/03/22 21:21) white blood cell 6.6 red blood cell 4.07 l hemoglobin 13.0 hematocrit 36.9l l mean cell volume 91 mean cell hgb 31.9 mean cell hgb concentration 35.2 h red cell distribution width 12.8 platelet count 144 mean platelet volume 11.0 neutrophil % 49.2 immature granulocyte % 0.3 lymphocyte % 32.5 monocyte % 8.1 eosinophil % 9.0 h basophil % 0.9 nucleated rbc % 0.0 neutrophil # 3.2 lymphocyte # 2.14 monocyte # 0.5 eosinophil # 0.6 h basophil # 0.1 tropi (04/03/22 21:21) troponin-i <0.020 basic metabolic panel (04/03/22 21:21) sodium 138 potassium 3.5l l chloride 106 carbon dioxide 24 glucose 209h h blood urea nitrogen 17 glomerular filtration rate 60 creatinine 1.25 calcium 8.7 sodium 04/04/22 02:01 135 04/03/22 21:21 138 12/05/21 04:50 136 12/02/21 14:59 138 12/01/21 06:15 12/01/21 01:53 12/01/21 01:25 138 creatinine 04/04/22 02:01 1.02 04/03/22 21:21 1.25 12/05/21 04:50 1.00 12/02/21 14:59 1.11 12/01/21 06:15 12/01/21 01:53 12/01/21 01:25 1.08 white blood cell 04/04/22 02:01 6.8 04/03/22 21:21 6.6 12/05/21 04:50 6.0 12/02/21 14:59 7.5 12/01/21 06:15 12/01/21 01:53 12/01/21 01:25 6.8 hemoglobin 04/04/22 02:01 13.0 04/03/22 21:21 13.0 12/05/21 04:50 13.3 12/02/21 14:59 13.6 12/01/21 06:15 12/01/21 01:53 12/01/21 01:25 14.6 platelet count 04/04/22 02:01 138 04/03/22 21:21 144 12/05/21 04:50 179 12/02/21 14:59 156 12/01/21 06:15 12/01/21 01:53 12/01/21 01:25 149 ua leukocyte esterase dipstick 04/04/22 02:01 04/03/22 21:21 negative 12/05/21 04:50 12/02/21 14:59 12/01/21 06:15 12/01/21 01:53 negative 12/01/21 01:25 ua wbc 04/04/22 02:01 04/03/22 21:21 0-5 12/05/21 04:50 12/02/21 14:59 12/01/21 06:15 12/01/21 01:53 0-5 12/01/21 01:25 ua rbc 04/04/22 02:01 04/03/22 21:21 0-5 12/05/21 04:50 12/02/21 14:59 12/01/21 06:15 12/01/21 01:53 0-5 12/01/21 01:25 hdl cholesterol 04/04/22 02:01 38 04/03/22 21:21 12/05/21 04:50 12/02/21 14:59 12/01/21 06:15 39 12/01/21 01:53 12/01/21 01:25 glycosylated hemoglobin (ha1c) 04/04/22 02:01 6.2 04/03/22 21:21 12/05/21 04:50 12/02/21 14:59 12/01/21 06:15 6.2 12/01/21 01:53 12/01/21 01:25 lipoprotein ldl 04/04/22 02:01 44 04/03/22 21:21 12/05/21 04:50 12/02/21 14:59 12/01/21 06:15 144 12/01/21 01:53 12/01/21 01:25 test results mri brain w/o contrast (04/04/22 07:45) 1. moderate cerebral atrophy. 2. moderate white matter changes. 3. no acute intracranial abnormality identified. ct angio neck (04/04/22 00:01) 1. patent major platinum of srivastava arteries. 2. patent cervical carotid and vertebral arterie s. mild atherosclerosis at the carotid bifurcation witho ut causing any significant stenosis. signed in patientkeeper by kingsley lazo md on at 12:34 electronically signed by kingsley lazo md on 03/14 11/01 at 1234 attention *edits and/or addenda must be made in patient ke eper for this note. * * edits and ammendments created in [employer] are not visible * * in patient keeper or the legal medical record (hpf). * [facility] #: [id number] end of report 2022-04-04 00:33:00-00:00 [facility] ([facility]) hospitalist marquita hubbard report #: [id number] report status: signed date: 04/04/22 time: 003 patient: priscila concepcion jr albert unit #: [id number] room #: n.ersd bed: 3 : 44 age: 76 sex: m attend: yunior mora md adm dt: 04/03/22 author: yunior mora md attention *edits and/or addenda must be made in patient ke eper for this note. * * edits and ammendments created in [employer] are not visible * * in patient keeper or the legal medical record (hpf). * -- history -- admission date: 2022-04-03 primary care provider: primary or family physician, no hpi: patient is a 76-year-old male with past medical history of bph, hypertension, cva, tia, atrial fibrillation status post ablati on on eliquis who presents to the ed with chief complaints of facial/l eft arm numbness and weakness. patient reported onset was earlier today while h e was out having lunch. states symptom lasted for about 30 minutes and resolved complet byron. he went home n and symptoms reoccurred but this time with associati ng difficulties with speech which prompted him to present to the ed for furt her evaluation. prior to getting to the ed reported symptom compl etely resolved again. since presenting to the ed patient with no fu rther episode. patient denies chest pain, shortness of breath, headache, ataxia, syncope episode. natalie manuel denies fever, chills, nausea, vomiting, abdominal pain, diarrhea, cons tipation. of note patient was hospitalized 11/2021 to with altered mental statu s and difficulties in speech. patient had an extensive work-up which was unrem arkable. patient's symptom resolved spontaneously. vitals unremarkable with exception of elevated b lood pressure. lab work-up significant for sodium 130/potassium 3.5/glucose 209/creatinine 1.25. cbc unremarkable. ua with no acute findings. ct head with no acute findings. cta head and neck with no acute findings. hospitalis t consulted for admission and further management past medical history: bph, hypertension, hyperlipidemia, cva, tia, atr ial fibrillation status post ablation on eliquis past surgical history: right hip replacement family history: reviewed and noncontributory -social history- -tobacco use- details/comments: denies use -vaping/inhaled solvents- details/comments: denies use -alcohol use- details/comments: denies use -drug use- details/comments: denies use -- allergies/home meds -- allergies: cetirizine (unknown - allergy) home medications: apixaban tab (eliquis tab) 5 mg po bid atorvastatin tab (lipitor tab) oral fluticasone prop nasal spray (flonase nasal spra y) 2 spray nasal daily gabapentin cap (neurontin cap) 300 mg po tid glipizide tab (glucotrol tab) oral imitrex tablet (sumatriptan succinate) 50 mg po q2h magnesium oxide tablet oral metoprolol tartrate tab (lopressor tab) 25 mg po bid mobic tab (meloxicam) 15 mg po daily vitamin b-12 tablet (cyanocobalamin (vitamin b-1 2)) 1000 mcg po daily -- subjective -- -review of systems- general: negative for fever, malaise, fatigue. eyes: negative for blurry vision. no diplopia. ears/nose/throat: negative for sore throat. no o talgia. no rhinorrhea. respiratory: negative for dyspnea or wheeze. no cough. cardiovascular: negative for chest pain or palpi tations. no extremity swelling. gastrointestinal: negative for abdominal pain or nausea. no emesis. no diarrhea. genitourinary: negative for dysuria, frequency, or urgency. no gross hematuria. musculoskeletal: negative for joint stiffness, p ain, or arthralgias. skin: negative for rashes. no pruritus. neurological: speech difficulty, facial/left num bness and weakness psychiatric: negative for specific complaints. endocrine: negative for cold intolerance, heat i ntolerance, polyphagia, polydipsia, polyuria, weight change , fatigue. -- objective -- vitals (04/03 00:33 - 04/04 00:33): temperature f: 98.4 temperature c: 36.3 (36.3 - 37.2) pulse rate 58 (58 - 87) respiratory rate: 18 (16 - 18) bp: 190/90 (155/78 - 190/91) -exam- general: well developed, well nourished, in no a pparent distress. head: normocephalic, atraumatic. eyes: perrl, eom intact, conjunctiva and sclera clear, without nystagmus, lids normal. ears: tm's intact and clear, normal canals, alexis sly normal hearing. nose: no deformity, no discharge, no inflammatio n, no lesions. mouth: oropharynx without deformities or lesions , normal mucosa.. neck: no masses, no thyromegaly, no abnormal cer vical nodes, trachea midline. chest: grossly normal appearance. lungs: clear bilaterally with normal respirator y effort. heart: regular rate and rhythm, normal s1, s2, n o murmurs, no rubs, no gallops, no clicks. abdomen: soft, non-tender, no organomegaly, no m asses noted. musculoskeletal: no deformity, no scoliosis note d of thoracic or lumbar spine, joint rom grossly normal, normal gait a nd station. extremities: no clubbing, no cyanosis, no edema. neurological: no focal deficits, cranial nerves ii-xii grossly intact, normal sensation, normal reflexes, normal coord ination, normal muscle strength, normal tone. pulses: pulses normal in all extremities. skin: intact without significant lesions, or darryl hes. psychiatric: alert and oriented to time, person, place. normal mood and affect, intact judgment and insight. -- data -- labs urinalysis complete (04/03/22 21:21) ua color dark yellow ua appearance clear ua glucose dipstick 2+ ua bilirubin dipstick negative ua ketone dipstick trace h ua specific gravity 1.029 ua blood dipstick negative ua ph dipstick 5.0 ua protein dipstick 3+ h ua urobilinogen dipstick negative ua nitrite dipstick negative ua ascorbic acid dipstick positive a ua leukocyte esterase dipstick negative ua wbc 0-5 ua rbc 0-5 ua epithelial cells rare ua bacteria none ua hyaline cast 6-10 h ua mucus 1+ cbc w/auto diff (04/03/22 21:21) white blood cell 6.6 red blood cell 4.07 l hemoglobin 13.0 hematocrit 36.9l l mean cell volume 91 mean cell hgb 31.9 mean cell hgb concentration 35.2 h red cell distribution width 12.8 platelet count 144 mean platelet volume 11.0 neutrophil % 49.2 immature granulocyte % 0.3 lymphocyte % 32.5 monocyte % 8.1 eosinophil % 9.0 h basophil % 0.9 nucleated rbc % 0.0 neutrophil # 3.2 lymphocyte # 2.14 monocyte # 0.5 eosinophil # 0.6 h basophil # 0.1 tropi (04/03/22 21:21) troponin-i <0.020 basic metabolic panel (04/03/22 21:21) sodium 138 potassium 3.5l l chloride 106 carbon dioxide 24 glucose 209h h blood urea nitrogen 17 glomerular filtration rate 60 creatinine 1.25 calcium 8.7 -- assessment and plan -- general assessment: left facial/upper extremity weakness and numbnes s, resolved aphasia, resolved -differential diagnosis: cva versus tia versus u nknown etiology -patient hospitalized in with similar epis ode which resolved spontaneously as well with [facility] was unremarkable -ct head, ct head and neck with no acute finding s -complete stroke work-up with mri brain, echocar diogram, lipid panel, a1c -allow permissive hypertension -neurology consulted, appreciate assistance -pt/ot/st hypertension -allow permissive hypertension -iv hydralazine for blood pressure >180/120 hyperlipidemia -resume home meds after med rec atrial fibrillation -status post -rate controlled ablation -continue home eliquis. 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 -advanced care plan >65- patient has an advance care plan: yes full code -vte prophylaxis -general- yes type of vte other anticoagulants -- attestation -- time spent on patient care: - direct 75 minutes care activities / care coordination: - i have reviewed the history and repeated the watkins elements - i have seen and examined this patient - i have discussed the alicia ent's condition with other members of the care team signed in patientkeeper by yunior mora md on 04/04/22 at 01:38 electronically signed by bianca edward on 04/04/22 at 0138 attention *edits and/or addenda must be made in patient ke eper for this note. * * edits and ammendments created in [facility] are not visible * * in patient keeper or the legal medical record ([facility]). * [facility] #: [id number] end of report 2022-04-03 21:36:00-00:00 [id number] [address] patient name: priscila concepcion jr admit date: 03/14 10/04 account no: [id number] room no: [facility] age: 76 report type: electrocardiogram sex: m admitting physician:yunior hicks md attending physician:yunior hicks md order: [id number] test reason : resting 12-lead ecg test date/time stamp: sunapr 03 2022 21:36:27 blood pressure : / mmhg vent. rate : 063 bpm atrial rate : 000 bpm p-r int : 200 ms qrs dur : 102 ms qt int : 424 ms p-r-t axes : 057 -38 066 degree s qtc int : 437 ms sinus rhythm marked left axis deviation abnormal ecg confirmed by altagracia curran ([id number]) on 04/04/2022 10:49:57 pm referred by: no physician confirmed by:altagracia olguin electronically signed by altagracia curran md on at 2249 patient name priscila concepcion jr [id number] 6401-08-22 21:09:00-00:00 [facility] ([facility]) emergency provider report report#:[id number] report status: signed date:04/03/22 time: 2108 patient: priscila concepcion jr unit #: [id number] room: [facility] bed: 3 age: 76 sex: m pcp phys: no primary or family ph ysician service dt: 04/03/22 author: josh kumar * all edits or amendments must be made on the 4Home/computer document * provider in triage - adult provider in triage initial greet date/time 04/03/222108 free text pit notes free text pit notes pmhx 2 storkes, facial/left arm numbness 40 minutes ago, all symptoms ended 15 minutes ago. denies any symptoms currently cstat score 0, no deficits on exam, will order stroke w/u and not alert. spoke with dr. perez regarding patient. further workup is required, care transferred to emergency dept pmh-provider in triage stated complaint numbness in hand earlier today hx tia allergies coded allergies: cetirizine (anaphylaxis 12/01/21) home medications active scripts cefdinir (omnicef) 300 mg po q12h cefdinir (omnicef) 300 mg po q12h #14 cap prov: 12/05/21 spironolactone (aldactone) 50 mg po daily spironolactone (aldactone) 50 mg po daily #30 t ab prov: 12/05/21 nifedipine (procardia xl) 90 mg po q12h nifedipine (procardia xl) 90 mg po q12h #60 tab prov: 12/05/21 hydrocodone/apap (norco 10/325) 1 tab po q6h prn pain scale 7-10 (use 1st) hydrocodone/apap (norco 10/325) 1 tab po q6h pr n pain scale 7-10 (use 1st) #15 tab prov: 12/05/21 reported medications cyanocobalamin (vitamin b-12) 1,000 mcg po daily metoprolol tartrate (lopressor) 25 mg po bid glipizide (glucotrol) apixaban (eliquis) 5 mg po bid atorvastatin (lipitor) magnesium oxide gabapentin (neurontin) 300 mg po tid meloxicam (mobic) 15 mg po daily sumatriptan (imitrex) 50 mg po q2h prn migraine fluticasone propionate (flonase 50 mcg/act nasal ) 2 spray nasal daily lisinopril 40 mg po daily tamsulosin er (flomax) 0.4 mg po daily electronically signed by josh kumar on 04/03/22 at 2113 electronically signed by harvey perez md on 0 04/17/22 at 1442 rpt #:[id number] end of report 2022-02-28 12:43:00-00:00 [facility] ([facility]) EMERGENCY PROVIDER REPORT REPORT#:[id number] REPORT STATUS: Signed DATE:02/28/22 TIME: 1243 PATIENT: PRISCILA CONCEPCION UNIT #: [id number] ROOM: BED: AGE: 76 SEX: M PCP PHYS: Undefined Provider SERVICE AUTHOR: Josh Kumar * ALL edits or amendments must be made on the 4Home/computer document * HPI-Hip/Pelvis Prob/Inj Free Text HPI Notes Free Text HPI Notes 76-year-old male significant past surgical histo ry including hip replacement 2018 presenting with right hip pain. Patient rep orts awakening 3 weeks ago to throbbing sensation around the right lateral hip region. Patient reports pain has waxed and waned since onset and seem s to radiate along the lateral edge of his right thigh ending before the knee. Patient reports he is able to ambulate with significant pain at bedside. At bedside pat cora denies nausea, vomiting, fever, chills, chest pain, s hortness of breath, loss of consciousness, and notes chronic unchanged chronic extremity neuropathy. General Confirmed Patient Yes Initial Greet Date/Time 02/28/22 1055 Presentation Chief Complaint Hip pain R Hx Obtained From Patient Risk-Hip/Pelvis Prob/Inj Risk Stratification Well's Criteria for DVT Well's Criteria for DVT Response Value Active Cancer? No 0 Immob Lower Extremity? No 0 Bed >3 Days/Surg Last 4 Weeks? No 0 Local Tend Deep Venous Sys? No 0 Entire Leg Swollen? No 0 Calf Swelling >3cm? No 0 Pit Edema in Symptomatic Leg? No 0 Collat Superficial Veins? No 0 Previous Documented DVT? No 0 Total 0 Well's DVT Score -2 - 1, low risk for DVT Review of Systems ROS Statements All systems rev neg except as marked. Focused Review of Systems Musculoskeletal Reports: Extremity pain. Past Medical History - Adult Stated Complaint HIP AND BACK PAIN X 3 WEEKS INC REASING WORSENING Allergies Coded Allergies: No Known Allergies (02/28/22) Past Surgical History: Reports: Hip procedure. Physical Exam Vital Signs Vital Signs First Documented: Result Date Time Pulse Ox 97 02/28 1116 B/P 150/78 02/28 1116 B/P Mean 102 02/28 1116 Temp 36.7 02/28 1116 Pulse 60 02/28 1116 Resp 18 02/28 1116 O2 Delivery Room air 02/28 1222 Last Documented: Result Date Time Pulse Ox 96 02/28 1222 B/P 164/78 02/28 1222 B/P Mean 106.5 02/28 1222 O2 Delivery Room air 02/28 1222 Temp 36.5 02/28 1222 Pulse 51 02/28 1222 Resp 18 02/28 1222 Review of Vital Signs Vital signs normal Focused PE General/Const General/Const Awake, Alert, No acute di stress, Well appearing, Well developed , Well hydrated, Well nourished, Cooperative, No t toxic appearing Resp/Chest Respiratory/Chest Atraumatic, Breath sounds NL, Breath sounds = bilat, No respiratory distress, No rales, No rhonchi, No w heezing, No retractions Cardiovascular Cardiovascular Heart rate NL, Regular rhythm, H eart sounds NL, No gallop, No murmurs, No rubs, Peripheral circulation NL MS Lower Extrem Lower Ext/Pelvis/MS hip/pelvic joint stable, ab le to ambulate on affected extremity. right hip incisio n well-healed, without skin breakdown, discoloration , fluctuance, erythema/edema. Skin Skin Atraumatic, Color NL, No rash, War m, Dry, Intact, Turgor NL, No swelling Interpretation Diagnostics Lab Results Interpretation Results Laboratory Tests: 02/28 1158 Urines Urine Color (YELLOW) YELLOW Urine Appearance (CLEAR) Clear Urine pH (5.0 - 9.0) 6.0 Ur Specific Bushnell (1.001 - 1.030) 1.019 Urine Protein (NEGATIVE) 2+ H Urine Glucose (UA) (NEGATIVE) 1+ Urine Ketones (NEGATIVE) Trace H Urine Blood (NEGATIVE) NEGATIVE Urine Nitrite (NEGATIVE) NEGATIVE Urine Bilirubin (NEGATIVE) NEGATIVE Urine Urobilinogen (<=1.0) NEGATIVE Ur Leukocyte Esterase (NEGATIVE) NEGATIVE Urine RBC (0 - 5 /HPF) 0-5 Urine WBC (0 - 5 /HPF) 0-5 Ur Epithelial Cells (NONE - FEW /LPF) RARE Urine Bacteria (NONE SEEN /HPF) None Urine Mucus (NONE SEEN /LPF) 1+ Urine Ascorbic Acid POSITIVE A Recent Impressions: RADIOLOGY - XR L-SPINE 2/3 VIEWS 02/28 1124 Report Impression - Status: SIGNED Entered: 02/28/2022 1150 IMPRESSION: 1. 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 No acute fracture or malalignme nt. 2. Expected postoperative findings of right tota l hip arthroplasty. No acute findings of the pelvis/right hip. Impression By: Martina ORDAZ MD RADIOLOGY - XR HIP W/PEL UNI 2+V RT 02/28 1124 Report Impression - Status: SIGNED Entered: 02/28/2022 1150 IMPRESSION: 1. 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 No acute fracture or malalignme nt. 2. Expected postoperative findings of right tota l hip arthroplasty. No acute findings of the pelvis/right hip. Impression By: Martina ORDAZ MD Lab Statement Laboratory studies reviewed and considered in th e medical decision-making. Imaging Statement Radiographic studies reviewed and considered in the medical decision-making. Lab Imaging Statement Laboratory radiographic studies reviewed and con sidered in the medical decision-making. Re-Evaluation MDM Free Text MDM Notes Free Text MDM Notes 76-year-old male significant surgical history ri ght hip replacement 2019 presenting with atraumatic r ight hip pain. Physical examination reassuring with patient able to stand from seated position and b ear weight on affected extremity. Right hip incisional scar well-healed without skin breakdown, fluctuance, erythema, or edema. Extremit y warm, well-perfused. Patient reports chronic unchanged neuropathy to affected extremi ty. X imaging negative for acute changes. UA negative. Will dischar ge home with recommendations to follow -up with surgeon who performed hip repla cement and follow-up with primary care provider for suspected sciatica. Patient educate d at bedside on exercises to help with sciatica and is amenable to plan of ca re with no further questions. Re-Evaluation/Progress Compartment Syndrome There are no signs or sympto ms of compartment syndrome in the injured extremity at the time of this examination. Any pain the pa tient has is in proportion to the injury, the peripheral circulation is intact , capillary refill is not delayed, and there is no numbness, tingling or p aresthesia. Tissue Perfusion Reassessment Patient tissue perfusion reassessment completed. ED Course Medication(s) Ordered Medication(s) Ordered: Central Nervous System Agents Sig/Yuval Start time Last Medication Dose Route Stop Time Status Admin Ketorolac 10 MG X1ED STA 02/28 1242 DC 02/28 Tromethamine IM 02/28 1243 1303 Oxycodone/ 1 TAB X1ED STA 02/28 1242 DC 02/28 Acetaminophen PO 02/28 1243 1303 Differential Diagnosis Differential Diagnosis Fx femoral head, arthriti s, sciatica Patient Discharge Departure Vital Signs/Condition Vital Signs First Documented: Result Date Time Pulse Ox 97 02/28 1116 B/P 150/78 02/28 1116 B/P Mean 102 02/28 1116 Temp 36.7 02/28 1116 Pulse 60 02/28 1116 Resp 18 02/28 1116 O2 Delivery Room air 02/28 1222 Last Documented: Result Date Time Pulse Ox 96 02/28 1222 B/P 164/78 02/28 1222 B/P Mean 106.5 02/28 1222 O2 Delivery Room air 02/28 1222 Temp 36.5 02/28 1222 Pulse 51 02/28 1222 Resp 18 02/28 1222 All vital signs available at the time of this en try have been reviewed. Condition Stable Clinical Impression Clinical Impression Primary Impression: Right hip pain Disposition Decision Discharge )( Discharged to Home Yes )( Time 1248 )( Date 02/28/22 Discharge/Care Plan Counseled Regarding Diagnosi s, Imaging studies, Prescriptions, Need for follow- up, When to return to ED (Auto) Prescriptions Current Visit Scripts Lidocaine (Lidoderm 5%) 1 PATCH TRANSDERM DAILY Lidocaine (Lidoderm 5%) 1 PATCH TRANSDERM DAILY #30 PATCH Acetaminophen (Tylenol) 500 MG PO ASDIR Acetaminophen (Tylenol) 500 MG PO ASDIR #24 TAB S Follow label instructions for pain or fever. Ibuprofen (Motrin) 800 MG PO TID PRN PRN PAIN Ibuprofen (Motrin) 800 MG PO TID PRN PRN PAIN # 30 TABS Additional Instructions Please look up exercises and ways to reduce scia grisel. There are many YouTube videos available for free which can help you to learn the basics of muscle stretching to help with your suspected sciatica. Please follow-up with your primary care provider. We owens ve included a list of orthopedic doctors to help if you like to get further evaluation. Referrals Provider Referral: Ryan Jamison Address: [address] [facility], [address] [place] [address] Provider Referral: Garret Bower MD Address: [address] [facility] [address] [place] [address] Provider Referral: Priscila Aponte MD Address: [address] [facility] [place] [address] Provider Referral: Hair Glasgow MD Address: [address] [place] [address] [address] [place] [address] Provider Referral: Amrit Carvajal MD Address: [address] [facility] [address] [place] [address] Provider Referral: Tamir Abarca MD Address: [address], [facility] [address] [place] [address] Provider Referral: Greg Peres MD Address: [address] [facility] [address] [place] [address] Provider Referral: Nando Smith MD Address: [address] [place] [address] Provider Referral: Shaw Motta MD Address: [address] [facility] [address] [place] [address] Provider Referral: Tonio Smith MD Address: [address] [place] [address] Provider Referral: Aggie Woods MD Address: [address] [facility] [address] [place] [address] Departure Forms [facility] PCP LIST Discharge Note I have spoken with the patie nt and/or caregivers. I have explained the patient's condition, diagnoses and mario atment plan based on the information available to me at this time. I have answered the patient's and/ or caregiver's questions and addressed any concerns. The patient and/or careg tyra have as good an understanding of the patient 's diagnosis, condition and treatment plan as can be expected at this point. The vital signs have bee n stable. The patient's condition is stable and appr opriate for discharge from the emergency department. The patient will pursue further outpatient evalu ation with the primary care physician or other designated or consulting phys ician as outlined in the discharge instructions. The patient and/or caregivers are agreeable to this plan of care and follow-up instructions have been exp lained in detail. The patient and/or caregivers have received these instructio ns in written format and have expressed an understanding of the discharge inst ructions. The patient and/or caregivers are aware that any significant change in condition or worsening of symptoms should prompt an immediate return to [facility] or the closest emergency department or a call to 911. Extremity Inj Discharge Note The patient is discharged home with supportive c are, a plan for pain control, and follow-up instructions t hat detail what to expect over the next 48 hours and what symptoms should prompt immediate re turn to the ED, including the symptoms of compartment syndrome. Fol low-up instructions have been explained in detail to the patient, and the instructions have been prov ided in written format. The patient is comfortable with the plan of care and has expressed an understanding of the discharge instruction s. The patient is aware that any significant change in condition or worsening of symptoms should pro mpt an immediate call to the primary or designated physician. If that is not successful the patient should call or return to this or the closest emergency department or call 911. at 1616 Electronically Signed by Dara Smith MD on 02/11 03/03 at 0221 RPT #:[id number] END OF REPORT 2022-02-28 11:16:00-00:00 [facility] ([facility]) EMERGENCY PROVIDER REPORT REPORT#:[id number] REPORT STATUS: Signed DATE:02/28/22 TIME: 1116 PATIENT: PRISCILA CONCEPCION UNIT #: [id number] ROOM: BED: AGE: 76 SEX: M PCP PHYS: SERVICE DT: AUTHOR: Daniela Gan * ALL edits or amendments must be made on the 4Home/Stockpile document * Provider in Triage - Adult Provider in Triage Initial Greet Date/Time 02/28/22 1055 Greet Note I have greeted and performed a focused rapid initial assessment of this patient. A comprehensive ED assessment and evaluation of the patient, analysis of all test results, and completion of the medical deci mary-making process will be conducted by additional ED providers. HPI Chief Complaint Back pain, R hip pain Free Text PIT Notes Free Text PIT Notes FURTHER WORK UP IS REQUIRED, CARE TRANSFERRED TO EMERGENCY DEPARTMENT. Patient comes in complaining of atraumatic right-sided lower back and right hip pain radiating down his to his thigh x3 weeks. Right hip replacement April 2019. No bowel or bladder incontinence or retent ion. PMHx: Type II DM, HTN, HLD, A. fib on Apixaban. Patient has no known drug allergies. PMH-Provider in Triage Stated Complaint HIP AND BACK PAIN X 3 WEEKS INC REASING WORSENING at 1117 RPT #:[id number] END OF REPORT 2022-02-28 11:16:00-00:00 [facility] ([facility]) EMERGENCY PROVIDER REPORT REPORT#:[id number] REPORT STATUS: Signed DATE:02/28/22 TIME: 1116 PATIENT: PRISCILA CONCEPCION UNIT #: [id number] ROOM: BED: AGE: 76 SEX: M PCP PHYS: Undefined Provider SERVICE AUTHOR: Daniela Gan * ALL edits or amendments must be made on the 4Home/Stockpile document * Provider in Triage - Adult Provider in Triage Initial Greet Date/Time 02/28/22 1055 Greet Note I have greeted and performed a focused rapid initial assessment of this patient. A comprehensive ED assessment and evaluation of the patient, analysis of all test results, and completion of the medical deci mary-making process will be conducted by additional ED providers. HPI Chief Complaint Back pain, R hip pain Free Text PIT Notes Free Text PIT Notes FURTHER WORK UP IS REQUIRED, CARE TRANSFERRED TO EMERGENCY DEPARTMENT. Patient comes in complaining of atraumatic right-sided lower back and right hip pain radiating down his to his thigh x3 weeks. Right hip replacement April 2019. No bowel or bladder incontinence or retent ion. PMHx: Type II DM, HTN, HLD, A. fib on Apixaban. Patient has no known drug allergies. PMH-Provider in Triage Stated Complaint HIP AND BACK PAIN X 3 WEEKS INC REASING WORSENING at 1117 Electronically Signed by Kacy Turpin DO on at 1328 RPT #:[id number] END OF REPORT 2021-12-12 21:58:00-00:00 [id number] [place] [address] PATIENT NAME: PRISCILA CERON JR ADMIT DATE: 12/01 ACCOUNT NO: [id number] ROOM NO: N.0383 AGE: 76 REPORT TYPE: 360 - QUERY RESPONSE DOCUMENT SEX: M ADMITTING PHYSICIAN:Ely Simon DO ATTENDING PHYSICIAN:Ely Simon DO Provider Query QUERY TEXT: Condition General 360MD Query related questions should be directed to:Sánchez mejia [facility] Coding Query Helpline Based on your medical judgement and the clinical indicators listed below kindly specify the underlying cause of the patient's Confusion and slurred speech ( Hypert ensive emergency, Pneumonia, unspecified, or other mor e appropriate diagnosis)? The patient's Clinical Indicators include: - Patient presented with dysarthria and altered mental status -Hospitalist D/C Summary 12/05/2021 Altered mental status -Etiology unclear, questio n related to underlying infection as patient had temperat ure of 102 after getting admitted - Hospitalist D/C Summar y 12/05/2021 Bilateral pneumonia-Hospitalist D/C Summary 11/12 Patient was started on Cardene drip for acute hy pertensive emergency-ED PHYSICIAN RECORD 12/01/2021 B/P 167/113 12/01 0058 cefTRIAXone 2 GM Inj-IV-MAR niCARdipine 40 mg/NS 200 mL Options provided: -- Respond - Create new note now -- Dismiss - Not applicable / Not valid -- Dismiss - Clinically unable to determine / Un known -- Assign to another provider QUERY RESPONSE: Hypertensive emergency Query created by: Tariq Mclean on 12/11/19 5:16 AM Electronically Signed by Shravan Hawthorne MD on at 2158 PATIENT NAME PRISCILA CERON JR [id number] 2021-12-05 14:29:00-00:00 [facility] ([facility]) Hospitalist D/C Summary REPORT #: [id number] REPORT STATUS: Signed DATE: 12/05/21 TIME: 1428 PATIENT: PRISCILA CERON JR UNIT #: [id number] ROOM #: N.0383 BED: 1 : 44 AGE: 76 SEX: M ATTEND: Krystian Simon DO ADM AUTHOR: Lexis Fitzpatrick MD ATTENTION *EDITS and/or ADDENDA must be made in Patient Ke eper for this note. * * Edits and ammendments created in [facility] are not visible * * in Patient Keeper or the legal medical record ([facility]). * -- HOSPITAL COURSE -- HOSPITAL COURSE: DATE OF ADMIT: 12/01/2021 DATE OF DISCHARGE: 12/05/2021 HISTORY OF PRESENT ILLNESS: 75-year-old male with past m edical history of hypertension, atrial fibrillation status post ablation, hyperlipidemia, history of TIA/CVA was brought to the hospital by EMS due to altered mental status and difficulty in speech. Last known normal was around 12 P M. According to patient 5 he looks confused and was not able to speak. He was moving his all 4 extre mities. He came as a stroke alert to the emergency room last night but was o ut of TPA window. Initial CT head, CTA brain and neck came back negative for acute infarct or large vessel occlusion. He was admitted to the hospital for f urther management. Neurology has been consulted.Patient is on Eliquis seconda ry to history of atrial fibrillation status post abl ation. According to family he is compliant with his Medications. HOSPITAL COURSE: Altered mental status -Etiology unclear, question related to underlyin g infection as patient had temperature of 102 after getting admitted. Seizu re still a possibility as he has a history of multiple TIA and CVA. -Possible drug reaction to sumatriptan a s symptoms started 1 hour after taking the medication. According to the patient his fat her had similar reaction to sumatriptan and had to be hospitalized. -Consult on-call neurologist for further recomme ndations. - Patient presented with dysarthria and altered mental status - Initial CT brain, CT head and neck normal - On Eliquis and statin at home. - LDL 144 on admission, hemoglobin A1c 6.2. Goal LDL less than 70. - Started Lipitor 80 mg at bedtime -Symptoms are back to baseline. Etiology of acut e medicine is unclear. MRI of brain did not show any acute CVA. -Question if patient had a seizure. Consult neur ology - Consulted speech therapy, physical therapy, oc cupational therapy - EEG - Was WNL. Bilateral pneumonia -Patient presented with temperature of 102 mariluz l WBC count., -Chest x-ray showed bilateral infiltrates, infec tion versus inflammation -Started on empiric IV antibiotics, ceftriaxone -Follow blood culture results. So far negativ History of hypertension -Resumed amlodipine and lisinopril. -Metoprolol on hold as patient was bradycardic l ast night with heart rate in 30s to 40s. -Cardiology consulted. Recommended to get an ech o. -Hold metoprolol due to bradycardia History of BPH - On tamsulosin DVT prophylaxis: SCDs GI prophylaxis: IV Pepcid CODE STATUS: Full code On the day of discharge, the patient felt well a nd was without any complaints or concerns. He denied any cough, SOB. He stated that he was feeling well enough to go home. at bedside. He was reque sting a few days of pain medications. -- DISCHARGE MEDICATIONS -- ALLERGIES: cetirizine (Unknown - Allergy) DISCHARGE MEDICATIONS: Please refer to Discharge Medication list for a complete list of discharge medications Apixaban Tab (Eliquis Tab) 5 MG PO BID Atorvastatin Tab (Lipitor Tab) Oral (Route: ORAL ) Cefdinir Cap (Omnicef Cap) 300 MG PO Q12H, Disp: 14 capsule, Refills: 0 Fluticasone Prop Nasal [place] (Flonase Nasal Spra y) 2 SPRAY Nasal DAILY Gabapentin Cap (Neurontin Cap) 300 MG PO TID glipiZIDE Tab (Glucotrol Tab) Oral (Route: ORAL) HYDROcodone/APAP 10/325 Tab ([place] 10/325 Tab) 1 TAB PO Q6H PRN pain scale 7-10 (use 1st), Disp: 15 tablet, Refills: 0 Imitrex tablet (sumatriptan succinate) 50 MG PO Q2H PRN migraine (MAX 4 DOSES IN 24 HOURS.) Lisinopril Tab (Prinivil Tab) 40 MG PO DAILY magnesium oxide tablet Oral (Route: ORAL) Metoprolol Tartrate Tab (Lopressor Tab) 25 MG PO BID Mobic tablet (meloxicam) 15 MG PO DAILY NIFEdipine XL Tab (Procardia XL Tab) 90M G PO Q12H, Disp: 60 tablet, Refills: 0 Spironolactone Tab (Aldactone Tab) 50MG PO DAILY , Disp: 30 tablet, Refills: 0 Tamsulosin Cap (Flomax Cap) 0.4 MG PO DAILY Vitamin B-12 tablet (cyanocobalamin (vitamin B-1 2)) 1000 MCG PO DAILY ADDTIONAL DETAIL: HOSPITALITY HOST reviewed. -- DISCHARGE INSTRUCTIONS -- PK DISCHARGE ORDERS: Discharge w/Instructions:PKDC - PK DISCHARGE ORD ERS Details: Order number: [id number] Category: PKDC - PK DISCHARGE ORDERS Order status: Transmitted Details: Discharge order: Yes Discharge to: Home/Self Care Diet: Diabetic Cardiac Follow up labs, procedures, treatments: F/U WITH PCP IN 1-2 WEEKS. Additional Discharge Routines: PCP Follow-Up Ordered by: Lexis Fitzpatrick MD Dec 05, 2021 8:53 am Entered by: Lexis Fitzpatrick MD Service date: Dec 05, 2021 8:50am Details: Order number: [id number] Category: PKDC - PK DISCHARGE ORDERS Order status: Transmitted Details: Does patient have any of the following condition s at discharge? None Ordered by: Lexis Fitzpatrick MD Dec 05, 2021 8:53 am Entered by: Lexis Fitzpatrick MD Service date: Dec 05, 2021 8:50am Discharge Patient - No CQM:PKDC - PK DISCHARGE O RDERS None ADDTIONAL DISCHARGE INSTRUCTIONS: Emergency Instructions: The patient was instruct ed to present to the nearest Emergency Department or call 911 should their sy mptoms return or worsen.; -- OBJECTIVE -- VITALS (12/04 14:29 - 12/05 14:29): Temperature C: 36.6 (36.5 - 37.4) Temperature source: Oral Pulse Rate 68 (54 - 77) Respiratory rate: 18 BP: 156/77 (150/77 - 184/95) -EXAM- GENERAL: Well developed, well nourished, in no a pparent distress. HEAD: Normocephalic, atraumatic. EYES: Conjunctiva and sclera clear, without nyst agmus, lids normal. NECK: No masses, no thyromegaly, no abnormal cer vical nodes, trachea midline. CHEST: Grossly normal appearance. LUNGS: Dim bilateral HEART: Regular rate and rhythm, normal S1, S2, n o murmurs, no rubs, no gallops, no clicks. ABDOMEN: Soft, non-tender, no organomegaly, no m asses noted. MUSCULOSKELETAL: No deformity. EXTREMITIES: No clubbing, no cyanosis, no edema. NEUROLOGICAL: No focal deficits.. SKIN: Intact without significant lesions, or darryl hes. PSYCHIATRIC: Alert and oriented to time, person, place. Normal mood and affect, intact judgment and insight. -- DATA -- LABS GLU BED (12/05/21 11:01) GLUBED 234 H GLU BED (12/05/21 10:58) GLUBED 234 H GLU BED (12/05/21 05:54) GLUBED 165 H CBC W/AUTO DIFF (12/05/21 04:50) WHITE BLOOD CELL 6.0 RED BLOOD CELL 4.42 HEMOGLOBIN 13.3 HEMATOCRIT 38.3L L MEAN CELL VOLUME 87 MEAN CELL HGB 30.1 MEAN CELL HGB CONCENTRATION 34.7 H RED CELL DISTRIBUTION WIDTH 13.2 PLATELET COUNT 179 MEAN PLATELET VOLUME 10.1 NEUTROPHIL % 48.5 IMMATURE GRANULOCYTE % 0.3 LYMPHOCYTE % 34.1 MONOCYTE % 8.3 EOSINOPHIL % 7.8 H BASOPHIL % 1.0 NUCLEATED RBC % 0.0 NEUTROPHIL # 2.9 LYMPHOCYTE # 2.04 MONOCYTE # 0.5 EOSINOPHIL # 0.5 BASOPHIL # 0.1 BASIC METABOLIC PANEL (12/05/21 04:50) SODIUM 136 POTASSIUM 2.9*L *L CHLORIDE 104 CARBON DIOXIDE 24 GLUCOSE 213H H BLOOD UREA NITROGEN 11 GLOMERULAR FILTRATION RATE >=60 max estimate CREATININE 1.00 CALCIUM 8.3 L GLU BED (12/04/21 20:57) GLUBED 144 H GLU BED (12/04/21 16:09) GLUBED 162 H -- QUALITY -- COMMENTS: DISCHARGE TIME >30 MIN Signed in PatientKeeper by Lexis Fitzpatrick MD n 12/07/21 at 09:43 at 0943 ATTENTION *EDITS and/or ADDENDA must be made in Patient Ke eper for this note. * * Edits and ammendments created in [facility] are not visible * * in Patient Keeper or the legal medical record (HPF). * [facility] #: [id number] END OF REPORT 2021-12-05 09:06:00-00:00 HC[facility]W [facility] ([facility]) Med Order Sheet REPORT #: [id number] REPORT STATUS: Signed DATE: 12/05/21 TIME: 905 PATIENT: PRISCILA CERON UNIT #: [id number] ROOM #: [id number] BED: 1 : 44 AGE: 75 SEX: M ATTEND: AuroraKrystian kaushik Flanagan DO ADM AUTHOR: Lexis Fitzpatrick MD ATTENTION *EDITS and/or ADDENDA must be made in Patient [facility] for this note. * * Edits and ammendments created in [facility] are not visible * * in Patient Keeper or the legal medical record ([facility]). * Discharge Medication Reconciliation Hosp: HYDROcodone/APAP 10/325 Tab ([place] 10/325 Tab) Dose: 1 TAB PO Q6H PRN pain scale 7-10 (use 1st ), Disp: 15 tablet, Refills: 0 at 0906 ATTENTION *EDITS and/or ADDENDA must be made in Patient [facility] for this note. * * Edits and ammendments created in [facility] are not visible * * in Patient Keeper or the legal medical record ([facility]). * RPT #: [id number] END OF REPORT 2021-12-05 09:04:00-00:00 HC[facility] ([facility]) Med Order Sheet REPORT #: [id number] REPORT STATUS: Signed DATE: 12/05/21 TIME: 903 PATIENT: PRISCILA CERON UNIT #: [id number] ROOM #: [id number] BED: 1 : 44 AGE: 75 SEX: M ATTEND: Krystian Simon DO ADM AUTHOR: Lexis Fitzpatrick MD ATTENTION *EDITS and/or ADDENDA must be made in Patient Ke eper for this note. * * Edits and ammendments created in [facility] are not visible * * in Patient Keeper or the legal medical record (HPF). * Discharge Medication Reconciliation DISCHARGE MEDICATION LIST Spironolactone Tab (Aldactone Tab) Dose: 50MG PO DAILY, Disp: 30 tablet, Refills: 0 NIFEdipine XL Tab (Procardia XL Tab) Dose: 90MG PO Q12H, Disp: 60 tablet, Refills: 0 Hosp: Cefdinir Cap (Omnicef Cap) Dose: 300 MG PO Q12H, Disp: 14 capsule, Refills : 0 Hosp: Discontinue: NIFEdipine XL Tab (Procardia XL Tab) Dose: 90MG PO Q12H, Disp: 60 tablet, Refills: 0 Hosp: Discontinue: Spironolactone Tab (Aldactone Tab) Dose: 50MG PO DAILY, Disp: 30 tablet, Refills: 0 at 0904 ATTENTION *EDITS and/or ADDENDA must be made in Patient [facility] for this note. * * Edits and ammendments created in [employer] are not visible * * in Patient Keeper or the legal medical record ([facility]). * RPT #: [id number] END OF REPORT 2021-12-05 08:57:00-00:00 HC[facility] ([facility] Med Order Sheet REPORT #: [id number] REPORT STATUS: Signed DATE: 12/05/21 TIME: 856 PATIENT: PRISCILA CERON UNIT #: [id number] ROOM #: [id number] BED: 1 : 44 AGE: 75 SEX: M ATTEND: Krystian Simon DO ADM AUTHOR: Lexis Fitzpatrick MD ATTENTION *EDITS and/or ADDENDA must be made in Patient [facility] for this note. * * Edits and ammendments created in [employer] are not visible * * in Patient Keeper or the legal medical record ([facility]). * Discharge Medication Reconciliation Discharge Meds Rec Completed. No Reconciled Orde rs. at 0857 ATTENTION *EDITS and/or ADDENDA must be made in Patient Ke eper for this note. * * Edits and ammendments created in [facility] are not visible * * in Patient Keeper or the legal medical record (HPF). * RPT #: [id number] END OF REPORT 2021-12-05 08:55:00-00:00 [facility]W [facility] ([facility]) Med Order Sheet REPORT #: [id number] REPORT STATUS: Signed DATE: 12/05/21 TIME: 854 PATIENT: PRISCILA CERON UNIT #: [id number] ROOM #: [id number].0383 BED: 1 : 44 AGE: 75 SEX: M ATTEND: Krystian Simon DO ADM AUTHOR: Lexis Fitzpatrick MD ATTENTION *EDITS and/or ADDENDA must be made in Patient [facility] for this note. * * Edits and ammendments created in [facility] are not visible * * in Patient Keeper or the legal medical record ([facility]). * Discharge Medication Reconciliation Hosp: Cefdinir Cap (Omnicef Cap) Dose: 300 MG PO Q12H, Disp: 14 capsule, Refills : 0 at 0855 ATTENTION *EDITS and/or ADDENDA must be made in Patient [facility] for this note. * * Edits and ammendments created in [facility] are not visible * * in Patient Keeper or the legal medical record ([facility]). * RPT #: [id number] END OF REPORT 2021-12-05 08:53:00-00:00 HC[facility]W [facility] ([facility]) Med Order Sheet REPORT #: [id number] REPORT STATUS: Signed DATE: 12/05/21 TIME: 08 PATIENT: PRISCILA CERON UNIT #: [id number] ROOM #: [id number] BED: 1 : 44 AGE: 75 SEX: M ATTEND: AuroraKrystianraegan Flanagan DO ADM AUTHOR: Lexis Fitzpatrick MD ATTENTION *EDITS and/or ADDENDA must be made in Patient Ke eper for this note. * * Edits and ammendments created in [facility] are not visible * * in Patient Keeper or the legal medical record (HPF). * Discharge Medication Reconciliation DISCHARGE MEDICATION LIST NIFEdipine XL Tab (Procardia XL Tab) Dose: 90MG PO Q12H, Disp: 60 tablet, Refills: 0 Apixaban Tab (Eliquis Tab) Dose: 5 MG PO BID Atorvastatin Tab (Lipitor Tab) Dose: Oral Fluticasone Prop Nasal [place] (Flonase Nasal Spra y) Dose: 2 SPRAY Nasal DAILY Gabapentin Cap (Neurontin Cap) Dose: 300 MG PO TID glipiZIDE Tab (Glucotrol Tab) Dose: Oral Imitrex tablet (sumatriptan succinate) Dose: 50 MG PO Q2H PRN migraine - MAX 4 DOSES IN 24 HOURS. Lisinopril Tab (Prinivil Tab) Dose: 40MG PO DAILY magnesium oxide tablet Dose: Oral Metoprolol Tartrate Tab (Lopressor Tab) Dose: 25 MG PO BID Mobic tablet (meloxicam) Dose: 15 MG PO DAILY Spironolactone Tab (Aldactone Tab) Dose: 50MG PO DAILY, Disp: 30 tablet, Refills: 0 Tamsulosin Cap (Flomax Cap) Dose: 0.4MG PO DAILY Vitamin B-12 tablet (cyanocobalamin (vitamin B-1 2)) Dose: 1000 MCG PO DAILY Hosp: Cefdinir Oral Susp (Omnicef Oral Susp) Dose: 300 MG PO Q12H, Disp: 14 x 60 mL bottle, Refills: 0 STOPPED HOSPITAL MEDICATIONS Dc'd: Acetaminophen Tab (Tylenol Tab) 650MG PO Q 4H PRN pain score 1-3/fever>100.4Dc'd: Acetaminophen Supp (Tylenol Supp) 650MG Rectal Q4H PRN headache/temp>101Dc'd: Albuterol/Ipratrop Neb So ln (Duoneb Neb Soln) 3ML Neb RTQ6H PRN sob/wheezingDc'd: cefTRIAXone Inj (Neptali ephin Inj) 2GM 400 MLS/HR IV DAILY X 7 dosesin Sodium Chloride 0.9% (Nacl 0.9 %) 20ML Dc'd: Dextrose 50% 50 mL Syringe (D50W 50 mL Syr zay) 50ML IV ASDIR PRN bgl<70Dc'd: Dextrose Chewable Tab (Glucose Chewa ble Tab) 16GM PO ASDIR PRN bg 50-69 +can swallow +not npoDc'd: Dextrose Pamela wable Tab (Glucose Chewable Tab) 4GM PO ASDIR PRN bg 70-100 + symptomaticDc' d: Dextrose Chewable Tab (Glucose Chewable Tab) 8GM PO ASDIR PRN bg 70-10 0 + symptomaticDc'd: Docusate Sodium Cap (Colace Cap) 100MG PO Q12HRD c'd: Famotidine Tab (Pepcid Tab) 20MG PO [id number]'d: Glucagon Inj (Glucagon Inj) 1MG SubQ ASDIR PRN bg less than 70 no iv accessDc'd: hydrALAZINE Inj ( Apresoline Inj) 10MG IV Q6H PRN sbp>180Dc'd: HYDROcod/APAP 5/325 Tab ([place] 5/325 Tab) 1TAB PO Q4H PRN pain scale 4-6 (use 1st)Dc'd: Insulin (Lispro) I nj (HumaLog Inj ) LOW DOSE SLIDING SCALE SubQ ASDIRDc'd: Labetalol Inj (Tra ndate Inj) 10MG IV Q1H PRN bp>220/120Dc'd: morphine Inj (morphine Inj) 2MG IV Q4H PRN pain scale 4-6Dc'd: morphine Inj (morphine Inj) 4MG IV Q4H PRN pain scale 7-10Dc'd: Ondansetron Inj (Zofran Inj) 4MG IV Q4H PRN naus ea and vomitingDc'd: Polyethylene Glycol Powder (Miralax Powder) 1PKT PO DAILY PRN constipationDc'd: Potassium Chloride ER Tab (K D ur Tab) 40 MEQ PO ONCE at 0853 ATTENTION *EDITS and/or ADDENDA must be made in Patient Ke eper for this note. * * Edits and ammendments created in [facility] are not visible * * in Patient Keeper or the legal medical record (HPF). * [facility] #: [id number] END OF REPORT 2021-12-05 08:20:00-00:00 [facility] Electroencephalogram-EEG REPORT#:[id number] REPORT STATUS: Signed DATE:12/05/21 TIME: 819 PATIENT: PRISCILA CERON UNIT #: [id number] ROOM: [facility] BED: 1 : 44 AGE: 75 SEX: M ATTEND: Krystian Simon DO ADM AUTHOR: Marga Guzman MD * ALL edits or amendments must be made on the el ectronic/computer document * Procedure HPI Requesting clinician: Dr Simon Medications: Home Medications: Medication Dose/Rte/Freq Days Qty Entered Last Max Daily Dose Reviewed Lisinopril 400 04/21/22 04/21/22 Strength: 40 MG TAB 0122 0129 Amlodipine (Norvasc) 10 MG PO DAILY 12/01/21 Strength: 10 MG TAB 0122 012 Cyanocobalamin 1,000 MCG PO DAILY 12/01/2111/12 (Vitamin B-12) 0123 0129 Strength: 1,000 MCG TAB Metoprolol Tartrate 25 MG PO BID 12/01/2112/01 (Lopressor) 0125 0129 Strength: 25 MG TAB Glipizide (Glucotrol) 12/01/21 12/01/21 Strength: 10 MG TAB 0125 012 Apixaban (Eliquis) 5 MG PO BID 12/01/21 2 Strength: 5 MG TAB 0126 012 Tamsulosin Er (Flomax) 4 12/01/21 12/01/21 Strength: 0.4 MG 0127 0129 CAP.SR.24H Atorvastatin (Lipitor) 12/01/21 12/01/21 Strength: 80 MG TAB 0127 0129 Magnesium Oxide 12/01/21 12/01/21 Strength: 420 MG TAB 0127 012 Gabapentin (Neurontin) 300 MG PO TID 12/01/21 0 12/01/21 Strength: 300 MG CAP 0128 0129 Meloxicam (Mobic) 15 MG PO DAILY 12/01/2112/01 Strength: 15 MG TAB 0128 012 Sumatriptan (Imitrex) 50 MG PO 12/01/21 2 Strength: 50 MG TAB Q2H PRN PRN 012 012 MIGRAINE Fluticasone Propionate 2 SPRAY NASAL DAILY 11/1212/01/21 (Flonase 50 Mcg/Act 0129 0129 Nasal) Strength: 50 MCG/ACTUATION SPRAY Current Hospital Medications: Anti-Infective Agents Sig/Yuval Start time Last Medication Dose Route Stop Time Status Admin Ceftriaxone Sodium 2 GM DAILY 12/01 1000 AC (ROCEPHIN) IV 12/07 09 0906 Sodium Chloride 20 ML (NACL 0.9%) Autonomic Drugs Sig/Yuval Start time Last Medication Dose Route Stop Time Status Admin Albuterol/Ipratropium 3 ML RTQ6H PRN PRN 12/01 0950 AC (DUONEB 2.5-0.5MG/3 NEB 12/31 0951 mL) Blood Formation,Coagulation Sig/Yuval Start time Last Medication Dose Route Stop Time Status Admin Apixaban 5 MG BID 12/01 0900 AC 12/04 (ELIQUIS) PO 12/31 0901 2119 Cardiovascular Drugs Sig/Yuval Start time Last Medication Dose Route Stop Time Status Admin Spironolactone 50 MG DAILY 12/05 0900 AC (ALDACTONE) PO 01/04 0901 Nifedipine 90 MG Q12H 12/05 0800 CKD (PROCARDIA XL) PO 01/04 0801 Nifedipine 30 MG Q12H 12/04 1800 DC 12/05 (PROCARDIA XL) PO 01/03 1801 0532 Nifedipine 30 MG DAILY 12/03 1145 DC 12/04 (PROCARDIA XL) PO 01/02 1146 0908 Spironolactone 25 MG DAILY 12/03 1145 DC 12/04 (ALDACTONE) PO 01/02 1146 0911 Lisinopril 40 MG DAILY 12/02 1615 AC 12/04 (lisinopriL) PO 01/01 1616 0906 Hydralazine HCl 10 MG Q6H PRN PRN 12/01 0955 AC 12/03 (APRESOLINE) IV 12/31 0956 0840 Tamsulosin HCl 0.4 MG DAILY 12/01 0900 AC 12/04 (FLOMAX) PO 12/31 0901 0904 Atorvastatin Calcium 40 MG .AT BEDTIME 12/01 06 30 CKD 12/01 (LIPITOR) PO 12/31 0631 2124 Nicardipine HCl 200 ML ASDIR 12/01 0545 DC 11/12 1 (CARDENE 40 MG/200 IV 12/31 0546 0543 mL) Labetalol HCl 10 MG Q1H PRN PRN 12/01 0325 AC (TRANDATE, NORMODYNE) IV 12/31 0326 Central Nervous System Agents Sig/Yuval Start time Last Medication Dose Route Stop Time Status Admin Acetaminophen 650 MG Q4H PRN PRN 12/01 1015 AC 12/01 (TYLENOL SUPP) RECTAL 12/31 1016 1041 Acetaminophen 650 MG Q4H PRN PRN 12/01 0955 AC 12/03 (TYLENOL) PO 12/31 0956 0030 Hydrocodone Bitart/ 1 TAB Q4H PRN PRN 12/01 095 5 AC 12/04 Acetaminophen PO 12/11 0956 2119 ([place]CO 5/325 TABLET) Gabapentin 300 MG TID 12/01 0800 AC 12/04 (NEURONTIN) PO 12/31 Sumatriptan Succinate 50 MG Q2H PRN PRN 12/01 0 635 AC (IMITREX 25 MG TAB) PO 12/31 0636 Morphine Sulfate 4 MG Q4H PRN PRN 12/01 0325 AC (morphine) IV 12/11 0326 Morphine Sulfate 2 MG Q4H PRN PRN 12/01 0325 AC (morphine) IV 12/11 0326 Electrolytic, Caloric, And Tre Sig/Yuval Start time Last Medication Dose Route Stop Time Status Admin Potassium Chloride 40 MEQ ONCE ONE 12/05 0800 D C (K-DUR) PO 12/05 0801 Dextrose 16 GM ASDIR PRN 12/02 1230 AC (GLUCOSE) PO 01/01 1231 Dextrose 8 GM ASDIR PRN 12/02 1230 AC (GLUCOSE) PO 01/01 1231 Dextrose 4 GM ASDIR PRN 12/02 1230 AC (GLUCOSE) PO 01/01 1231 Dextrose/Water 50 ML ASDIR PRN 12/02 1230 CKD (DEXTROSE 50% SYR) IV 01/01 1231 Gastrointestinal Drugs Sig/Yuval Start time Last Medication Dose Route Stop Time Status Admin Famotidine 20 MG Q12HR 12/01 2100 AC 12/04 (PEPCID) PO 12/31 Ondansetron HCl 4 MG Q4H PRN PRN 12/01 0955 AC (ZOFRAN 4 MG/2 ML IV 12/31 0956 INJ) Polyethylene Glycol 1 PKT DAILY PRN PRN 12/01 0 950 CKD (MIRALAX) PO 12/31 0951 Docusate Sodium 100 MG Q12HR 12/01 0900 AC 11/12 4 (COLACE) PO 12/31 0901 2119 Hormones And Synthetic Substit Sig/Yuval Start time Last Medication Dose Route Stop Time Status Admin Glucagon 1 MG ASDIR PRN 12/02 1230 AC (GLUCAGON) SUBQ 01/01 1231 Insulin Human Lispro See Dose ASDIR 12/02 1230 AC 12/05 (HUMALOG) Insts (1) SUBQ 01/01 1231 0611 Skin And Mucous Membrane Agent Sig/Yuval Start time Last Medication Dose Route Stop Time Status Admin Fluticasone 2 SPRAY DAILY 12/01 899 CKD Propionate NASAL 12/31 900 (FLONASE NASAL SPRAY) Vitamins Sig/Yuval Start time Last Medication Dose Route Stop Time Status Admin Cyanocobalamin 1,000 MCG DAILY 12/01 899 AC (VITAMIN B-12) PO 12/31 900 0905 Dose Instructions: (1)Insulin Human Lispro (HUMALOG): LOW DOSE SLIDING SCALE HPI: 75 yo man with transient AMS after Sumatriptan Procedure Date of procedure: 12/04/21 Procedure performed: routine EEG Indication: altered mental status Procedure description: Routine digitally recorded EEG performed using s [employer] 10/20 INternational System of electrode placement. Photic stimulatio n was applied. Findings: There is moderate amount of muscle and eye blink artifact throughout the study, particularly during photic s timulation. There is a posterior rhythm of admixed 7 -9 Hz theta and alpha activi ty. No focal asymmetries or slowing. No epileptiform discharges or electroencephalographic se izures. No abnormal response to photic stimulation. Impression/Conclusion: Mild generalized slowing without epileptiform di scharges. Electronically Signed by Marga Guzman MD on at 0824 RPT #:[id number] END OF REPORT 2021-12-05 07:54:00-00:00 [facility]) Cardiology Progress Notes REPORT #: [id number] REPORT STATUS: Signed DATE: 12/05/21 TIME: 0754 PATIENT: PRISCILA CERON JR UNIT #: [id number] ROOM #: [id number] BED: 1 : 44 AGE: 75 SEX: M ATTEND: Krystian Simon DO ADM AUTHOR: Carlito Page BLAST FURNACE OPERATOR ATTENTION *EDITS and/or ADDENDA must be made in Patient Ke eper for this note. * * Edits and ammendments created in [employer] are not visible * * in Patient Keeper or the legal medical record (HPF). * -- CO-SIGNATURE -- COMMENTS: I saw and examined the patient with the advanced care provider Carlito Page NP. I agree with the plan of care except: HR controlled. BP better controlled, c/w spironolactone 25 mg q day C/w Nifedipine to 30 mg twice daily. C/w Eliquis. PRN hydralazine with SBP >160 mmHg. Stable for dc. Susan Looney MD, MS. Interventional Cardiology [place] [facility]. Office Ph. [phone] Signed in PatientKeeper by SUSAN LOONEY MD on 12/05/21 at 22:34 -- ASSESSMENT AND PLAN -- GENERAL ASSESSMENT: Bradycardia - HR 60s on tele. Continue tele. Asymptomatic - No AV ishaan blocking agents on board current. - Pt believes baseline HR on low-normal - No PATT, consider outpt w/u - TSH 0.8 -Electrolytes replaced this morning AMS - Dysarthria/AMS, possible CVA. Now A/Ox3 - CT brain, CTA head and neck negative - Neurology following - Echo 12/02/21 - EF 60-65%, normal diastolic. Hypertension - SBP 150s -170s - Continue lisinopril, aldactone, and nifedipine . 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 Hyperlipidemia - LDL 144 - Agree statin BPH -management per primary Please call if questions. We will follow. ALTAGRACIA Posadas [place] [facility] -- SUBJECTIVE -- PATIENT NARRATIVE: negative for overnight cardiac events -- OBJECTIVE -- VITALS (12/04 07:54 - 12/05 07:54): Temperature C: 36.5 (36.5 - 37.4) Temperature source: Oral Pulse Rate 54 (54 - 77) Respiratory rate: 18 BP: 162/77 (150/75 - 186/95) -EXAM- GENERAL: Well developed, well nourished, in no a pparent distress. HEAD: Normocephalic, atraumatic. EYES: PERRL, EOM intact, conjunctiva and sclera clear, without nystagmus, lids normal. NECK: No masses, no thyromegaly, no abnormal cer vical nodes, trachea midline. CHEST: Grossly normal appearance. LUNGS: Dim bilateral HEART: Regular rate and rhythm, normal S1, S2, no murmurs, no rubs, no gallops, no clicks. ABDOMEN: Soft, non-tender, no organomegaly, no m asses noted. MUSCULOSKELETAL: No deformity, no scoliosis note d of thoracic or lumbar spine, joint ROM grossly normal, normal gait an d station. EXTREMITIES: No clubbing, no cyanosis, no edema. NEUROLOGICAL: No focal deficits, cranial nerves II-XII grossly intact, normal sensation, normal reflexes, normal coord ination, normal muscle strength, normal tone. SKIN: Intact without significant lesions, or darryl hes. PSYCHIATRIC: Alert and oriented to time, person, place. Normal mood and affect, intact judgment and insight. -- DATA -- MEDICATIONS polyethylene glycoL 3350 1 PKT PO DAILY PRN FLUTICASONE PROPIONATE 2 SPRAY NASAL DAILY SUMAtriptan succinate 50 MG PO Q2H PRN IPRATROPIUM/ALBUTEROL SULFATE 3 ML NEB RTQ6H PRN GABAPENTIN 300 MG PO TID DOCUSATE SODIUM 100 MG PO Q12HR DEXTROSE 50%-WATER 50 ML IV ASDIR (PRN) APIXABAN 5 MG PO BID cefTRIAXone SODIUM with/in SODIUM CHLORIDE 0.9% 2 GM IV DAILY morphine SULFATE 2 MG IV Q4H PRN ONDANSETRON HCL/PF 4 MG IV Q4H PRN DEXTROSE 8 GM PO ASDIR (PRN) INSULIN LISPRO LOW DOSE SLIDING SCALE SUBQ ASDIR morphine SULFATE 4 MG IV Q4H PRN LABETALOL HCL 10 MG IV Q1H PRN FAMOTIDINE 20 MG PO Q12HR hydrALAZINE HCL 10 MG IV Q6H PRN ACETAMINOPHEN 650 MG PO Q4H PRN HYDROcodone BITARTRATE/APAP 1 TAB PO Q4H PRN POTASSIUM CHLORIDE 40 MEQ PO ONCE ATORVASTATIN CALCIUM 40 MG PO .AT BEDTIME CYANOCOBALAMIN 1000 MCG PO DAILY ACETAMINOPHEN 650 MG RECTAL Q4H PRN SPIRONOLACTONE 25 MG PO DAILY DEXTROSE 16 GM PO ASDIR (PRN) TAMSULOSIN 0.4 MG PO DAILY NIFEdipine 30 MG PO Q12H DEXTROSE 4 GM PO ASDIR (PRN) GLUCAGON 1 MG SUBQ ASDIR (PRN) lisinopriL 40 MG PO DAILY LABS GLU BED (12/05/21 05:54) GLUBED 165 H CBC W/AUTO DIFF (12/05/21 04:50) WHITE BLOOD CELL 6.0 RED BLOOD CELL 4.42 HEMOGLOBIN 13.3 HEMATOCRIT 38.3L L MEAN CELL VOLUME 87 MEAN CELL HGB 30.1 MEAN CELL HGB CONCENTRATION 34.7 H RED CELL DISTRIBUTION WIDTH 13.2 PLATELET COUNT 179 MEAN PLATELET VOLUME 10.1 NEUTROPHIL % 48.5 IMMATURE GRANULOCYTE % 0.3 LYMPHOCYTE % 34.1 MONOCYTE % 8.3 EOSINOPHIL % 7.8 H BASOPHIL % 1.0 NUCLEATED RBC % 0.0 NEUTROPHIL # 2.9 LYMPHOCYTE # 2.04 MONOCYTE # 0.5 EOSINOPHIL # 0.5 BASOPHIL # 0.1 BASIC METABOLIC PANEL (12/05/21 04:50) SODIUM 136 POTASSIUM 2.9*L *L CHLORIDE 104 CARBON DIOXIDE 24 GLUCOSE 213H H BLOOD UREA NITROGEN 11 GLOMERULAR FILTRATION RATE >=60 max estimate CREATININE 1.00 CALCIUM 8.3 L GLU BED (12/04/21 20:57) GLUBED 144 H GLU BED (12/04/21 16:09) GLUBED 162 H GLU BED (12/04/21 12:07) GLUBED 184 H Signed in PatientKeeper by Carlito Page NP on 12/05/21 at 11:17 Cosigned by SUSAN LOONEY MD on 12/05/21 at 22:34 at 2234 at 2234 ATTENTION *EDITS and/or ADDENDA must be made in Patient [facility] for this note. * * Edits and ammendments created in [facility] are not visible * * in Patient Keeper or the legal medical record ([facility]). * RPT #: [id number] END OF REPORT 2021-12-04 18:23:00-00:00 [facility] Hospitalist Progress Note REPORT #: [id number] REPORT STATUS: Signed DATE: 12/04/21 TIME: 1822 PATIENT: PRISCILA CERON UNIT #: [id number] ROOM #: [id number] BED: 1 : 44 AGE: 75 SEX: M ATTEND: Krystian Simon DO ADM AUTHOR: Shravan Hawthorne MD ATTENTION *EDITS and/or ADDENDA must be made in Patient [facility] for this note. * * Edits and ammendments created in [facility] are not visible * * in Patient Keeper or the legal medical record ([facility]). * -- ASSESSMENT AND PLAN -- GENERAL ASSESSMENT: Chief complaint: Follow-up of AMS, Pneumonia History of present illness: Patient seen and examined. No new complains toda y. Evaluated by tele neuro, recommended to get EEG, pending. Assessment: Altered mental status -Etiology unclear, question related to underlyin g infection as patient had temperature of 102 after getting admitted. Seizu re still a possibility as he has a history of multiple TIA and CVA. -Possible drug reaction to sumatriptan a s symptoms started 1 hour after taking the medication. According to the patient his fat her had similar reaction to sumatriptan and had to be hospitalized. -Consult on-call neurologist for further recomme ndations. - Patient presented with dysarthria and altered mental status - Initial CT brain, CT head and neck normal - On Eliquis and statin at home. - LDL 144 on admission, hemoglobin A1c 6.2. Goal LDL less than 70. - Started Lipitor 80 mg at bedtime -Symptoms are back to baseline. Etiology of acut e medicine is unclear. MRI of brain did not show any acute CVA. -Question if patient had a seizure. Consult neur ology - Consulted speech therapy, physical therapy, oc cupational therapy - Check EEG Bilateral pneumonia -Patient presented with temperature of 102 mariluz l WBC count., -Chest x-ray showed bilateral infiltrates, infec tion versus inflammation -Started on empiric IV antibiotics, ceftriaxone -Follow blood culture results. So far negativ History of hypertension -Resumed amlodipine and lisinopril. -Metoprolol on hold as patient was bradycardic l ast night with heart rate in 30s to 40s. -Cardiology consulted. Recommended to get an ech o. -Hold metoprolol due to bradycardia History of BPH - On tamsulosin DVT prophylaxis: SCDs GI prophylaxis: IV Pepcid CODE STATUS: Full code Plan: - Continue present management. -Pending EEG - Am labs Disposition: - Discharged when medically stable. Review of systems: Eyes: negative for redness Ears, nose, mouth, throat, and face: negative fo r sore throat Respiratory: negative for cough Cardiovascular: negative for palpitations Gastrointestinal: negative for nausea and vomiti ng Neurological: no headache Genitourinary:negative for dysuria Hematologic/lymphatic: negative for bleeding Physical exam: CONSTITUTIONAL: well developed, no acute distres s HENT: atraumatic, nose normal and normocephalic EYES: conjunctiva normal, EOM normal and CHANTELLE CARDIOVASCULAR: heart sounds normal, intact dist al pulses PULMONARY/CHEST WALL: breath sounds normal and e ffort normal ABDOMINAL: appearance normal, bowel sounds mariluz l and soft NEUROLOGICAL: awake, alert, no sensory or motor deficits. Speech back to normal. MUSCULOSKELETAL: No cyanosis or clubbing EXTREMITIES: No pedal edema SKIN: No rash Quality: Medications: I attest that the foregoing medication list in the medical record is true, accurate, and complete to the best of m y knowledge. Attestation: Time Spent on Patient Care:>35 minutes - Coordination of Care - > 50% of time spent on Counseling/Care Coordin ation Care Activities / Care Coordination: - I have reviewed the history and repeated the k ey elements - I have seen and examined this patient - I have reviewed the rasheede ss in the clinical course since the last examination - I have discussed the patient's conditi on with other members of the care team -- OBJECTIVE -- VITALS (12/03 18:23 - 12/04 18:23): Temperature C: 36.8 (36.6 - 37.2) Temperature source: Oral Pulse Rate 62 (62 - 76) Respiratory rate: 18 (18 - 20) BP: 150/80 (148/75 - 186/88) I/Os (12/03 07:00 - 12/04 07:00): Net -600 Output 600 -- DATA -- MEDICATIONS polyethylene glycoL 3350 1 PKT PO DAILY PRN FLUTICASONE PROPIONATE 2 SPRAY NASAL DAILY SUMAtriptan succinate 50 MG PO Q2H PRN IPRATROPIUM/ALBUTEROL SULFATE 3 ML NEB RTQ6H PRN GABAPENTIN 300 MG PO TID DOCUSATE SODIUM 100 MG PO Q12HR DEXTROSE 50%-WATER 50 ML IV ASDIR (PRN) APIXABAN 5 MG PO BID cefTRIAXone SODIUM with/in SODIUM CHLORIDE 0.9% 2 GM IV DAILY morphine SULFATE 2 MG IV Q4H PRN ONDANSETRON HCL/PF 4 MG IV Q4H PRN DEXTROSE 8 GM PO ASDIR (PRN) INSULIN LISPRO LOW DOSE SLIDING SCALE SUBQ ASDIR morphine SULFATE 4 MG IV Q4H PRN LABETALOL HCL 10 MG IV Q1H PRN FAMOTIDINE 20 MG PO Q12HR hydrALAZINE HCL 10 MG IV Q6H PRN ACETAMINOPHEN 650 MG PO Q4H PRN HYDROcodone BITARTRATE/APAP 1 TAB PO Q4H PRN ATORVASTATIN CALCIUM 40 MG PO .AT BEDTIME CYANOCOBALAMIN 1000 MCG PO DAILY ACETAMINOPHEN 650 MG RECTAL Q4H PRN SPIRONOLACTONE 25 MG PO DAILY DEXTROSE 16 GM PO ASDIR (PRN) TAMSULOSIN 0.4 MG PO DAILY NIFEdipine 30 MG PO Q12H DEXTROSE 4 GM PO ASDIR (PRN) GLUCAGON 1 MG SUBQ ASDIR (PRN) lisinopriL 40 MG PO DAILY LABS GLU BED (12/04/21 16:09) GLUBED 162 H GLU BED (12/04/21 12:07) GLUBED 184 H GLU BED (12/04/21 05:53) GLUBED 154 H GLU BED (12/03/21 20:41) GLUBED 124 H Signed in PatientKeeper by Shravan Hawthorne MD on 11/12 12/02 at 18:24 Electronically Signed by Shravan Hawthorne MD on at 1824 ATTENTION *EDITS and/or ADDENDA must be made in Patient Ke eper for this note. * * Edits and ammendments created in [facility] are not visible * * in Patient Keeper or the legal medical record ([facility]). * RPT #: [id number] END OF REPORT 2021-12-04 08:57:00-00:00 [facility] ([facility]) Cardiology Progress Notes REPORT #: [id number] REPORT STATUS: Signed DATE: 12/04/21 TIME: 856 PATIENT: PRISCILA CERON UNIT #: [id number] ROOM #: [id number] BED: 1 : 44 AGE: 75 SEX: M ATTEND: Krystian Simon kaushik Flanagan DO ADM AUTHOR: Breann Hirsch NP ATTENTION *EDITS and/or ADDENDA must be made in Patient Ke eper for this note. * * Edits and ammendments created in [employer] are not visible * * in Patient Keeper or the legal medical record ([facility]). * -- CO-SIGNATURE -- COMMENTS: I saw and examined the patient with the advanced care provider Carlito Page NP. I agree with the plan of care except: HR better BP better, c/w spironolactone 25 mg qday increase Nifedipine to 30 mg bid. C/w Eliquis. PRN hydralazine with SBP >160 mmHg. Susan Looney MD, MS. Interventional Cardiology [facility]. Office Ph. [phone] Signed in PatientKeeper by SUSAN LOONEY MD on 12/04/21 at 21:19 -- ASSESSMENT AND PLAN -- GENERAL ASSESSMENT: Bradycardia - HR improved, 60-70s on tele. Continue tele - No AV ishaan blocking agents on board current. - Pt believes baseline HR on low-normal - No PATT, consider outpt w/u - TSH 0.8 AMS - Dysarthria/AMS, possible CVA. Now A/Ox3 - CT brain, CTA head and neck negative - Neurology following - Echo 12/02/21 - EF 60-65%, normal diastolic. Hypertension - SBP 160s -180s - Continue lisinopril, aldactone, and nifedipine . 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 Hyperlipidemia - LDL 144 - Agree statin BPH Thank you for this consult. Please call if quest gem. We will follow. COLLEEN Ritchie, MARIELY [facility] -- SUBJECTIVE -- PATIENT NARRATIVE: Doing well. Feeling ok this Am -- OBJECTIVE -- VITALS (12/03 08:57 - 12/04 08:57): Temperature C: 36.6 (36.6 - 37.2) Temperature source: Oral Pulse Rate 62 (62 - 71) Respiratory rate: 18 (18 - 20) BP: 163/75 (148/75 - 176/86) I/Os (12/03 07:00 - 12/04 07:00): Net -600 Output 600 -EXAM- GENERAL: Well developed, well nourished, in no a pparent distress. HEAD: Normocephalic, atraumatic. EYES: PERRL, EOM intact, conjunctiva and sclera clear, without nystagmus, lids normal. NECK: No masses, no thyromegaly, no abnormal cer vical nodes, trachea midline. CHEST: Grossly normal appearance. LUNGS: Dim bilateral HEART: Regular rate and rhythm, normal S1, S2, n o murmurs, no rubs, no gallops, no clicks. ABDOMEN: Soft, non-tender, no organomegaly, no m asses noted. MUSCULOSKELETAL: No deformity, no scoliosis note d of thoracic or lumbar spine, joint ROM grossly normal, normal gait an d station. EXTREMITIES: No clubbing, no cyanosis, no edema. NEUROLOGICAL: No focal deficits, cranial nerves II-XII grossly intact, normal sensation, normal reflexes, normal coord ination, normal muscle strength, normal tone. SKIN: Intact without significant lesions, or darryl hes. PSYCHIATRIC: Alert and oriented to time, person, place. Normal mood and affect, intact judgment and insight. -- DATA -- MEDICATIONS polyethylene glycoL 3350 1 PKT PO DAILY PRN FLUTICASONE PROPIONATE 2 SPRAY NASAL DAILY SUMAtriptan succinate 50 MG PO Q2H PRN IPRATROPIUM/ALBUTEROL SULFATE 3 ML NEB RTQ6H PRN GABAPENTIN 300 MG PO TID DOCUSATE SODIUM 100 MG PO Q12HR niCARdipine HCL 40 MG IV ASDIR DEXTROSE 50%-WATER 50 ML IV ASDIR (PRN) APIXABAN 5 MG PO BID cefTRIAXone SODIUM with/in SODIUM CHLORIDE 0.9% 2 GM IV DAILY morphine SULFATE 2 MG IV Q4H PRN ONDANSETRON HCL/PF 4 MG IV Q4H PRN DEXTROSE 8 GM PO ASDIR (PRN) INSULIN LISPRO LOW DOSE SLIDING SCALE SUBQ ASDIR morphine SULFATE 4 MG IV Q4H PRN LABETALOL HCL 10 MG IV Q1H PRN FAMOTIDINE 20 MG PO Q12HR hydrALAZINE HCL 10 MG IV Q6H PRN ACETAMINOPHEN 650 MG PO Q4H PRN HYDROcodone BITARTRATE/APAP 1 TAB PO Q4H PRN ATORVASTATIN CALCIUM 40 MG PO .AT BEDTIME CYANOCOBALAMIN 1000 MCG PO DAILY ACETAMINOPHEN 650 MG RECTAL Q4H PRN NIFEdipine 30 MG PO DAILY SPIRONOLACTONE 25 MG PO DAILY DEXTROSE 16 GM PO ASDIR (PRN) TAMSULOSIN 0.4 MG PO DAILY DEXTROSE 4 GM PO ASDIR (PRN) GLUCAGON 1 MG SUBQ ASDIR (PRN) lisinopriL 40 MG PO DAILY LABS GLU BED (12/04/21 05:53) GLUBED 154 H GLU BED (12/03/21 20:41) GLUBED 124 H GLU BED (12/03/21 16:45) GLUBED 210 H GLU BED (12/03/21 11:38) GLUBED 195 H Signed in PatientKeeper by Breann Hirsch NP on 12/04/21 at 11:08 Cosigned by SUSAN LOONEY MD on 12/04/21 at 21:19 Electronically Signed by Breann Hirsch NP on at 2118 at 2118 ATTENTION *EDITS and/or ADDENDA must be made in Patient Ke eper for this note. * * Edits and ammendments created in [employer] are not visible * * in Patient Keeper or the legal medical record ([facility]). * RPT #: [id number] END OF REPORT 2021-12-03 16:00:00-00:00 [facility] ([facility]) Hospitalist Progress Note REPORT #: [id number] REPORT STATUS: Signed DATE: 12/03/21 TIME: 1600 PATIENT: PRISCILA CERON UNIT #: [id number] ROOM #: N.[id number] BED: 1 : 44 AGE: 75 SEX: M ATTEND: Krystian Simon DO ADM AUTHOR: Shravan Hawthorne MD ATTENTION *EDITS and/or ADDENDA must be made in Patient Ke eper for this note. * * Edits and ammendments created in [employer] are not visible * * in Patient Keeper or the legal medical record ([facility]). * -- ASSESSMENT AND PLAN -- GENERAL ASSESSMENT: Chief complaint: Follow-up of AMS, Pneumonia History of present illness: Patient seen and examined. No new complains toda y. Evaluated by tele neuro, recommended to get EEG Assessment: Altered mental status -Etiology unclear, question related to underlyin g infection as patient had temperature of 102 after getting admitted. Seizu re still a possibility as he has a history of multiple TIA and CVA. -Possible drug reaction to sumatriptan a s symptoms started 1 hour after taking the medication. According to the patient his fat her had similar reaction to sumatriptan and had to be hospitalized. -Consult on-call neurologist for further recomme ndations. - Patient presented with dysarthria and altered mental status - Initial CT brain, CT head and neck normal - On Eliquis and statin at home. - LDL 144 on admission, hemoglobin A1c 6.2. Goal LDL less than 70. - Started Lipitor 80 mg at bedtime -Symptoms are back to baseline. Etiology of acut e medicine is unclear. MRI of brain did not show any acute CVA. -Question if patient had a seizure. Consult neur ology - Consulted speech therapy, physical therapy, oc cupational therapy - Check EEG Bilateral pneumonia -Patient presented with temperature of 102 mariluz l WBC count., -Chest x-ray showed bilateral infiltrates, infec tion versus inflammation -Started on empiric IV antibiotics, ceftriaxone -Follow blood culture results. So far negativ History of hypertension -Resumed amlodipine and lisinopril. -Metoprolol on hold as patient was bradycardic l ast night with heart rate in 30s to 40s. -Cardiology consulted. Recommended to get an ech o. -Hold metoprolol due to bradycardia History of BPH - On tamsulosin DVT prophylaxis: SCDs GI prophylaxis: IV Pepcid CODE STATUS: Full code Plan: - Continue present management. -Pending EEG Disposition: - Discharged when medically stable. Review of systems: Eyes: negative for redness Ears, nose, mouth, throat, and face: negative fo r sore throat Respiratory: negative for cough Cardiovascular: negative for palpitations Gastrointestinal: negative for nausea and vomiti ng Neurological: no headache Genitourinary:negative for dysuria Hematologic/lymphatic: negative for bleeding Physical exam: CONSTITUTIONAL: well developed, no acute distres s HENT: atraumatic, nose normal and normocephalic EYES: conjunctiva normal, EOM normal and CHANTELLE CARDIOVASCULAR: heart sounds normal, intact dist al pulses PULMONARY/CHEST WALL: breath sounds normal and e ffort normal ABDOMINAL: appearance normal, bowel sounds mariluz l and soft NEUROLOGICAL: awake, alert, no sensory or motor deficits. Speech back to normal. MUSCULOSKELETAL: No cyanosis or clubbing EXTREMITIES: No pedal edema SKIN: No rash Quality: Medications: I attest that the foregoing medication list in the medical record is true, accurate, and complete to the best of m y knowledge. Attestation: Time Spent on Patient Care:>35 minutes - Coordination of Care - > 50% of time spent on Counseling/Care Coordin ation Care Activities / Care Coordination: - I have reviewed the history and repeated the k ey elements - I have seen and examined this patient - I have reviewed the rasheede ss in the clinical course since the last examination - I have discussed the patient's conditi on with other members of the care team -- OBJECTIVE -- VITALS (12/03 00:46 - 12/04 00:46): Temperature C: 37.2 (36.4 - 37.2) Temperature source: Oral Pulse Rate 67 (55 - 71) Respiratory rate: 20 (18 - 20) BP: 148/77 (148/73 - 187/86) -- DATA -- MEDICATIONS polyethylene glycoL 3350 1 PKT PO DAILY PRN FLUTICASONE PROPIONATE 2 SPRAY NASAL DAILY SUMAtriptan succinate 50 MG PO Q2H PRN IPRATROPIUM/ALBUTEROL SULFATE 3 ML NEB RTQ6H PRN GABAPENTIN 300 MG PO TID DOCUSATE SODIUM 100 MG PO Q12HR niCARdipine HCL 40 MG IV ASDIR DEXTROSE 50%-WATER 50 ML IV ASDIR (PRN) APIXABAN 5 MG PO BID cefTRIAXone SODIUM with/in SODIUM CHLORIDE 0.9% 2 GM IV DAILY morphine SULFATE 2 MG IV Q4H PRN ONDANSETRON HCL/PF 4 MG IV Q4H PRN DEXTROSE 8 GM PO ASDIR (PRN) INSULIN LISPRO LOW DOSE SLIDING SCALE SUBQ ASDIR morphine SULFATE 4 MG IV Q4H PRN LABETALOL HCL 10 MG IV Q1H PRN FAMOTIDINE 20 MG PO Q12HR hydrALAZINE HCL 10 MG IV Q6H PRN ACETAMINOPHEN 650 MG PO Q4H PRN HYDROcodone BITARTRATE/APAP 1 TAB PO Q4H PRN ATORVASTATIN CALCIUM 40 MG PO .AT BEDTIME CYANOCOBALAMIN 1000 MCG PO DAILY ACETAMINOPHEN 650 MG RECTAL Q4H PRN NIFEdipine 30 MG PO DAILY SPIRONOLACTONE 25 MG PO DAILY DEXTROSE 16 GM PO ASDIR (PRN) TAMSULOSIN 0.4 MG PO DAILY DEXTROSE 4 GM PO ASDIR (PRN) GLUCAGON 1 MG SUBQ ASDIR (PRN) lisinopriL 40 MG PO DAILY LABS GLU BED (12/03/21 20:41) GLUBED 124 H GLU BED (12/03/21 16:45) GLUBED 210 H GLU BED (12/03/21 11:38) GLUBED 195 H GLU BED (12/03/21 05:47) GLUBED 145 H Signed in PatientKeeper by Shravan Hawthorne MD on 11/12 12/02 at 00:48 Electronically Signed by Shravan Hawthorne MD on at 0048 ATTENTION *EDITS and/or ADDENDA must be made in Patient Ke eper for this note. * * Edits and ammendments created in [employer] are not visible * * in Patient Keeper or the legal medical record ([facility]). * RPT #: [id number] END OF REPORT 2021-12-03 10:05:00-00:00 [facility] ([facility]) Cardiology Progress Notes REPORT #: [id number] REPORT STATUS: Signed DATE: 12/03/21 TIME: 1005 PATIENT: PRISCILA CERON UNIT #: [id number] ROOM #: N.0383 BED: 1 : 44 AGE: 75 SEX: M ATTEND: Krystian Simon DO ADM AUTHOR: Breann Hirsch NP ATTENTION *EDITS and/or ADDENDA must be made in Patient Ke eper for this note. * * Edits and ammendments created in [employer] are not visible * * in Patient Keeper or the legal medical record ([facility]). * -- CO-SIGNATURE -- COMMENTS: I saw and examined the patient with the advanced care provider Carlito Page NP. I agree with the plan of care except: HR better Add spironolactone 25 mg qday Switch amlodipine to Nifedipine C/w Eliquis. PRN hydralazine with SBP >160 mmHg. Susan Looney MD, MS. Interventional Cardiology [place] [facility]. Office Ph. [phone] Signed in PatientKeeper by SUSAN LOONEY MD on 12/03/21 at 15:59 -- ASSESSMENT AND PLAN -- GENERAL ASSESSMENT: Bradycardia - HR 40-50 overnight. When awake 50-70s. No brandon cation for PPM at this time. Monitor - No AV ishaan blocking agents on board current. - Pt believes baseline HR on low-normal - No PATT - TSH 0.8 AMS - Dysarthria/AMS, possible CVA. Now A/Ox3 - CT brain, CTA head and neck negative - Neurology following - Echo 12/02/21 - EF 60-65%, normal diastolic. Hypertension - SBP 160s -180s - Amlodipine and lisinopril resumes. 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 Hyperlipidemia - LDL 144 - Agree statin BPH Thank you for this consult. Please call if quest ions. We will follow. COLLEEN Ritchie, MARILEY [facility] -- SUBJECTIVE -- PATIENT NARRATIVE: Doing well this AM. No complaints .State he does n't feel like he has PNA -- OBJECTIVE -- VITALS (12/02 10:05 - 12/03 10:05): Temperature C: 36.4 (36.4 - 36.9) Temperature source: Oral Pulse Rate 59 (55 - 63) Respiratory rate: 18 (16 - 20) BP: 187/73 (169/72 - 187/77) -EXAM- GENERAL: Well developed, well nourished, in no a pparent distress. HEAD: Normocephalic, atraumatic. EYES: PERRL, EOM intact, conjunctiva and sclera clear, without nystagmus, lids normal. NECK: No masses, no thyromegaly, no abnormal cer vical nodes, trachea midline. CHEST: Grossly normal appearance. LUNGS: Dim bilateral HEART: Regular rate and rhythm, normal S1, S2, n o murmurs, no rubs, no gallops, no clicks. ABDOMEN: Soft, non-tender, no organomegaly, no m asses noted. MUSCULOSKELETAL: No deformity, no scoliosis note d of thoracic or lumbar spine, joint ROM grossly normal, normal gait an d station. EXTREMITIES: No clubbing, no cyanosis, no edema. NEUROLOGICAL: No focal deficits, cranial nerves II-XII grossly intact, normal sensation, normal reflexes, normal coord ination, normal muscle strength, normal tone. SKIN: Intact without significant lesions, or darryl hes. PSYCHIATRIC: Alert and oriented to time, person, place. Normal mood and affect, intact judgment and insight. -- DATA -- MEDICATIONS polyethylene glycoL 3350 1 PKT PO DAILY PRN FLUTICASONE PROPIONATE 2 SPRAY NASAL DAILY SUMAtriptan succinate 50 MG PO Q2H PRN SODIUM CHLORIDE 0.9% 1000 ML IV .[id number] IPRATROPIUM/ALBUTEROL SULFATE 3 ML NEB RTQ6H PRN GABAPENTIN 300 MG PO TID DOCUSATE SODIUM 100 MG PO Q12HR niCARdipine HCL 40 MG IV ASDIR DEXTROSE 50%-WATER 50 ML IV ASDIR (PRN) APIXABAN 5 MG PO BID cefTRIAXone SODIUM with/in SODIUM CHLORIDE 0.9% 2 GM IV DAILY morphine SULFATE 2 MG IV Q4H PRN ONDANSETRON HCL/PF 4 MG IV Q4H PRN DEXTROSE 8 GM PO ASDIR (PRN) INSULIN LISPRO LOW DOSE SLIDING SCALE SUBQ ASDIR morphine SULFATE 4 MG IV Q4H PRN LABETALOL HCL 10 MG IV Q1H PRN FAMOTIDINE 20 MG PO Q12HR hydrALAZINE HCL 10 MG IV Q6H PRN ACETAMINOPHEN 650 MG PO Q4H PRN HYDROcodone BITARTRATE/APAP 1 TAB PO Q4H PRN ATORVASTATIN CALCIUM 40 MG PO .AT BEDTIME CYANOCOBALAMIN 1000 MCG PO DAILY ACETAMINOPHEN 650 MG RECTAL Q4H PRN DEXTROSE 16 GM PO ASDIR (PRN) TAMSULOSIN 0.4 MG PO DAILY DEXTROSE 4 GM PO ASDIR (PRN) GLUCAGON 1 MG SUBQ ASDIR (PRN) amLODIPine BESYLATE 10 MG PO DAILY lisinopriL 40 MG PO DAILY LABS GLU BED (12/03/21 05:47) GLUBED 145 H GLU BED (12/02/21 20:42) GLUBED 145 H GLU BED (12/02/21 16:36) GLUBED 174 H CBC W/AUTO DIFF (12/02/21 14:59) WHITE BLOOD CELL 7.5 RED BLOOD CELL 4.53 HEMOGLOBIN 13.6 HEMATOCRIT 40.8 MEAN CELL VOLUME 90 MEAN CELL HGB 30.0 MEAN CELL HGB CONCENTRATION 33.3 RED CELL DISTRIBUTION WIDTH 13.4 PLATELET COUNT 156 MEAN PLATELET VOLUME 11.3 NEUTROPHIL % 60.5 IMMATURE GRANULOCYTE % 0.5 LYMPHOCYTE % 23.9 MONOCYTE % 7.2 EOSINOPHIL % 7.1 H BASOPHIL % 0.8 NUCLEATED RBC % 0.0 NEUTROPHIL # 4.5 LYMPHOCYTE # 1.79 MONOCYTE # 0.5 EOSINOPHIL # 0.5 BASOPHIL # 0.1 BASIC METABOLIC PANEL (12/02/21 14:59) SODIUM 138 POTASSIUM 3.3L L CHLORIDE 103 CARBON DIOXIDE 25 GLUCOSE 222H H BLOOD UREA NITROGEN 15 GLOMERULAR FILTRATION RATE >=60 max estimate CREATININE 1.11 CALCIUM 8.6 GLU BED (12/02/21 11:52) GLUBED 200 H Signed in PatientKeeper by Breann Hirsch NP on 12/03/21 at 10:09 Cosigned by SUSAN LOONEY MD on 12/03/21 at 15:59 Electronically Signed by Breann Hirsch NP on at 1559 at 1559 ATTENTION *EDITS and/or ADDENDA must be made in Patient Ke eper for this note. * * Edits and ammendments created in [employer] are not visible * * in Patient Keeper or the legal medical record ([facility]). * RPT #: [id number] END OF REPORT 2021-12-02 18:01:00-00:00 [facility] ([facility]) Telemed Neuro Consult Note REPORT#:[id number] REPORT STATUS: Signed DATE:12/02/21 TIME: 1800 PATIENT: PRISCILA CERON UNIT #: [id number] ROOM: [facility] BED: 1 : 44 AGE: 75 SEX: M ATTEND: Krystian Simon DO ADM AUTHOR: Priscila Alfonso MD * ALL edits or amendments must be made on the el ectronic/computer document * History of Present Illness HPI HPI: 75 yo male with episode speech changes; impaired ; Presented to ED with LOC/fever to 102 by report. Resolved at this time Denies focal weakness Denies prominent OWENS Denies prominent stiff neck/photophobia Location - global cortical Intensity - resolved Duration - brief Context: Denies hx of seizure TIA in past = numbness events Hx of migraines Labs Imaging Vitals Meds Notes Orders reviewed History - Adult longitudinal Allergies: Coded Allergies: cetirizine (ANAPHYLAXIS 12/01/21) Review of Systems Free Text ROS Notes Free Text ROS Notes: Neg for GI CV Endo SKin Heme Ortho Objective General VS: Last Documented: Result Date Time Pulse Ox 96 12/02 151 B/P 184/75 12/02 151 B/P Mean 111.1 12/03 1515 Temp 36.6 12/03 1515 Pulse 60 12/02 151 Resp 16 12/02 151 O2 Delivery Nasal cannula 12/02 348 O2 Flow Rate 2 12/02 348 PATIENT WEIGHT: Weight (lb): 231 Weight (oz): Weight (kg): 104.78 Physical Exam General appearance: alert, awake, oriented Neuro/HIGHWAY PATROL PILOT: alert, oriented X 4, normal speech, EOMI, PERRL, CN II-XII intact, no motor deficits, no sensory deficits Diagnosis, Assessment Plan Free Text DxA P Notes Free text DxA P notes: 75 yo male with episode speech change/fever/LOC; Consider role for seizure/PNA: MRI brain CTA head and neck neg Pt reports hx of 'hole in heart' and prior ablat ion; Echo pending Telemetry Pt believes back to baseline Consider PNA role for fever= climnically doubt m eningitis/encephalitis. EEG Role for embolic CVA/discrete -TIA = w normal MR I SYstolics 120-145 Hold seizure meds Hold additional anticoagulation until more data available. Electronically Signed by Priscila Alfonso MD on 11/12 10/04 at 1808 RPT #:[id number] END OF REPORT 2021-12-02 15:53:00-00:00 [facility] ([facility] Hospitalist Progress Note REPORT #: [id number] REPORT STATUS: Signed DATE: 12/02/21 TIME: 1552 PATIENT: PRISCILA CERON UNIT #: [id number] ROOM #: N.0383 BED: 1 : 44 AGE: 75 SEX: M ATTEND: Krystian Simon DO ADM AUTHOR: Shravan Hawthorne MD ATTENTION *EDITS and/or ADDENDA must be made in Patient Ke eper for this note. * * Edits and ammendments created in [employer] are not visible * * in Patient Keeper or the legal medical record (HPF). * -- ASSESSMENT AND PLAN -- GENERAL ASSESSMENT: Chief complaint: Follow-up of History of present illness: Patient seen and examined. Assessment: Altered mental status -Etiology unclear, question related to underlyin g infection as patient had temperature of 102 after getting admitted. Seizu re still a possibility as he has a history of multiple TIA and CVA. -Possible drug reaction to sumatriptan a s symptoms started 1 hour after taking the medication. According to the patient his fat her had similar reaction to sumatriptan and had to be hospitalized. -Consult on-call neurologist for further recomme ndations. - Patient presented with dysarthria and altered mental status - Initial CT brain, CT head and neck normal - On Eliquis and statin at home. - LDL 144 on admission, hemoglobin A1c 6.2. Goal LDL less than 70. - Started Lipitor 80 mg at bedtime -Symptoms are back to baseline. Etiology of acut e medicine is unclear. MRI of brain did not show any acute CVA. -Question if patient had a seizure. Consult neur ology - Consulted speech therapy, physical therapy, oc cupational therapy Bilateral pneumonia -Patient presented with temperature of 102 mariluz l WBC count., -Chest x-ray showed bilateral infiltrates, infec tion versus inflammation -Started on empiric IV antibiotics, ceftriaxone -Follow blood culture results. So far negativ History of hypertension -Resumed amlodipine and lisinopril. -Metoprolol on hold as patient was bradycardic l ast night with heart rate in 30s to 40s. -Cardiology consulted. Recommended to get an ech o. -Hold metoprolol due to bradycardia History of BPH - On tamsulosin DVT prophylaxis: SCDs GI prophylaxis: IV Pepcid CODE STATUS: Full code Plan: - Continue present management. Disposition: - Discharged when medically stable. Review of systems: Eyes: negative for redness Ears, nose, mouth, throat, and face: negative fo r sore throat Respiratory: negative for cough Cardiovascular: negative for palpitations Gastrointestinal: negative for nausea and vomiti ng Neurological: no headache Genitourinary:negative for dysuria Hematologic/lymphatic: negative for bleeding Physical exam: CONSTITUTIONAL: well developed, no acute distres s HENT: atraumatic, nose normal and normocephalic EYES: conjunctiva normal, EOM normal and CHANTELLE CARDIOVASCULAR: heart sounds normal, intact dist al pulses PULMONARY/CHEST WALL: breath sounds normal and e ffort normal ABDOMINAL: appearance normal, bowel sounds mariluz l and soft NEUROLOGICAL: awake, alert, no sensory or motor deficits. Speech back to normal. MUSCULOSKELETAL: No cyanosis or clubbing EXTREMITIES: No pedal edema SKIN: No rash Quality: Medications: I attest that the foregoing medication list in the medical record is true, accurate, and complete to the best of m y knowledge. Attestation: Time Spent on Patient Care:>35 minutes - Coordination of Care - > 50% of time spent on Counseling/Care Coordin ation Care Activities / Care Coordination: - I have reviewed the history and repeated the k ey elements - I have seen and examined this patient - I have reviewed the progre ss in the clinical course since the last examination - I have discussed the patient's conditi on with other members of the care team -- OBJECTIVE -- VITALS (12/01 15:53 - 12/02 15:53): Temperature C: 36.6 (36.5 - 37.2) Temperature source: Oral Pulse Rate 60 (41 - 67) Respiratory rate: 16 (16 - 22) BP: 184/75 (147/65 - 184/76) I/Os (12/01 07:00 - 12/02 07:00): Net 120 Intake 120 -- DATA -- MEDICATIONS polyethylene glycoL 3350 1 PKT PO DAILY PRN FLUTICASONE PROPIONATE 2 SPRAY NASAL DAILY SUMAtriptan succinate 50 MG PO Q2H PRN SODIUM CHLORIDE 0.9% 1000 ML IV .[id number] IPRATROPIUM/ALBUTEROL SULFATE 3 ML NEB RTQ6H PRN GABAPENTIN 300 MG PO TID DOCUSATE SODIUM 100 MG PO Q12HR niCARdipine HCL 40 MG IV ASDIR DEXTROSE 50%-WATER 50 ML IV ASDIR (PRN) APIXABAN 5 MG PO BID cefTRIAXone SODIUM with/in SODIUM CHLORIDE 0.9% 2 GM IV DAILY morphine SULFATE 2 MG IV Q4H PRN ONDANSETRON HCL/PF 4 MG IV Q4H PRN DEXTROSE 8 GM PO ASDIR (PRN) INSULIN LISPRO LOW DOSE SLIDING SCALE SUBQ ASDIR morphine SULFATE 4 MG IV Q4H PRN LABETALOL HCL 10 MG IV Q1H PRN FAMOTIDINE 20 MG PO Q12HR hydrALAZINE HCL 10 MG IV Q6H PRN ACETAMINOPHEN 650 MG PO Q4H PRN HYDROcodone BITARTRATE/APAP 1 TAB PO Q4H PRN ATORVASTATIN CALCIUM 40 MG PO .AT BEDTIME CYANOCOBALAMIN 1000 MCG PO DAILY ACETAMINOPHEN 650 MG RECTAL Q4H PRN DEXTROSE 16 GM PO ASDIR (PRN) TAMSULOSIN 0.4 MG PO DAILY DEXTROSE 4 GM PO ASDIR (PRN) GLUCAGON 1 MG SUBQ ASDIR (PRN) LABS CBC W/AUTO DIFF (12/02/21 14:59) WHITE BLOOD CELL 7.5 RED BLOOD CELL 4.53 HEMOGLOBIN 13.6 HEMATOCRIT 40.8 MEAN CELL VOLUME 90 MEAN CELL HGB 30.0 MEAN CELL HGB CONCENTRATION 33.3 RED CELL DISTRIBUTION WIDTH 13.4 PLATELET COUNT 156 MEAN PLATELET VOLUME 11.3 NEUTROPHIL % 60.5 IMMATURE GRANULOCYTE % 0.5 LYMPHOCYTE % 23.9 MONOCYTE % 7.2 EOSINOPHIL % 7.1 H BASOPHIL % 0.8 NUCLEATED RBC % 0.0 NEUTROPHIL # 4.5 LYMPHOCYTE # 1.79 MONOCYTE # 0.5 EOSINOPHIL # 0.5 BASOPHIL # 0.1 BASIC METABOLIC PANEL (12/02/21 14:59) SODIUM 138 POTASSIUM 3.3L L CHLORIDE 103 CARBON DIOXIDE 25 GLUCOSE 222H H BLOOD UREA NITROGEN 15 GLOMERULAR FILTRATION RATE >=60 max estimate CREATININE 1.11 CALCIUM 8.6 GLU BED (12/02/21 11:52) GLUBED 200 H GLU BED (12/02/21 06:54) GLUBED 144 H GLU BED (12/01/21 22:33) GLUBED 115 H TEST RESULTS XR CHEST 2 V (12/01/21 12:30) IMPRESSION: Patchy bibasilar/retrocardiac opacit ies, compatible withinfectious/inflammatory process. MRI BRAIN W/O CONTRAST (12/02/21 12:00) IMPRESSION:1. Moderate chronic appearing small v essel microvascular ischemicchanges are noted in the periventricular white matter. Diffusion-weighted images shows no evidence of a cute infarct. Noacute intracranial findings. Signed in PatientKeeper by Shravan Hawthorne MD on 11/12 10/04 at 17:19 Electronically Signed by Shravan Hawthorne MD on at 1719 ATTENTION *EDITS and/or ADDENDA must be made in Patient Ke eper for this note. * * Edits and ammendments created in [facility] are not visible * * in Patient Keeper or the legal medical record (HPF). * [facility] #: [id number] END OF REPORT 2021-12-02 11:32:00-00:00 [id number] [facility] [address] [place] [address] PATIENT NAME: PRISCILA CERON ADMIT DATE: 12/01/21 ACCOUNT NO: [id number] ROOM NO: N.[id number] AGE: 75 REPORT TYPE: eECHOCARDIOGRAM SEX: M ADMITTING PHYSICIAN:Ely Simon DO ATTENDING PHYSICIAN:Ely Simon DO Transthoracic Echocardiography Report (TTE) ECHO 2D COMPLETE W/CF DOP Demographics Patient Name PRISCILA CERON Date of 1945 Hei ght 195.58 cm Age 75 Weight 105.1 Kgs Visit Number [id number] Gender Male BSA 2.38 m 2 Race BMI 2 7.48 Number kg/m 2 Siphon Operator Calderon Mcclain [facility] Referring Aurora Graves MD Physician Interpreting [facility] Physician Altagracia Curran MD Department 3 [facility] HR: 66 bpmBP: 162/72 mmHgPatient Status: Routin e Study Location: [facility] [employer] Quality: Adequate visualization Contrast Medium: Bubble Study. Amount - 20 ml Indications: TIA. Conclusions Summary Normal size, thickness, and function. EF is 60 to 65%. Normal diastolic function. Normal left atrium. Bubble study is nondiagnost ic due to poor quality. PATIENT NAME PRISCILA CERON Findings Left Ventricle Normal size, thickness, and function. EF is 60 to 65%. Normal diastolic function. Right Ventricle Normal right ventricle structure and function. Left Atrium Normal left atrium. Bubble study is nondiagnost ic due to poor quality. Right Atrium Normal right atrium. Aortic Valve Normal aortic valve structure and function. Tri leaflet. No significant stenosis or regurgitation Pulmonic Valve Pulmonic valve not well visualized. Mitral Valve Normal Mitral Valve structure and function. Tricuspid Valve Normal tricuspid valve structure and function. Trace regurgitation Aorta/PA/PV/IVC IVC is normal in size Pericardial Effusion No evidence of pericardial effusion. M-Mode Measurements (in cm) LVIDd: 5.73 cm LA: 4 cm LVIDs: 3.91 cm AO Root: 3.21 cm Post. Wall Thickness: 0.96 cm LVOT: 2.52 cm Septal Thickness: 1.03 cm Fractional Shortenin.76 % LV EF Calculated (>50%): 59.1% Diastolic Parameters: MV Peak E-Wave: 0.97 m/s E/A Ratio: 1.51 MV Peak A-Wave: 0.64 m/s Doppler Measurements: Aortic Findings: AV Peak Velocity: 1.63 m/s AV Peak Gradient: 10 .58 mmHg AV Mean Gradient: 5.56 mmHg AV Area (Continuity ):4.31 cm 2 PATIENT NAME PRISCILA CERON Pulmonic Flow: PV Peak Velocity: 1.07 m/s Tricuspid Findings: Peak TR Jet Velocity:2.86 m/s RVSP:42.68 mmHg Structures Left Ventricle Diastolic Dimension: 5.73 cm Systolic Dimension : 3.91 cm Septum Diastolic: 1.03 cm Septum Systolic: 1.31 cm PW Diastolic: 0.96 cm PW Systolic: 1.17 cm EF Calculated: 59.1% CO: 9.86 l/min CI: 4.14 l/min*m 2 FS: 31.76 % LV EDV/LV EDV Index: 162.23 ml/68 m 2 LVOT Diameter: 2.52 cm LV ESV/LV ESV Index: 66. 36 ml/28 m 2 Left Atrium LA Dimension: 4 cm LA Area: 21.73 cm 2 LA/Aorta: 1.25 LA Volume/Index: 66.24 ml /28m 2 Right Ventricle RV Systolic Pressure: 42.68 mmHg Right Atrium RA Systolic Pressure: 10 mmHg Aorta/PA/PV/IVC Aorta Aortic Root: 3.21 cm LVOT Diameter: 2.52 cm Valves Aortic Valve Peak Velocity: 1.63 m/s Area (continuity): 4.31 cm 2 Peak Gradient: 10.58 mmHg Mean Velocity: 1.11 m /s Mean Gradient: 5.56 mmHg AV VTI: 34.69 cm Pulmonic Valve Peak Velocity: 1.07 m/s Mean Velocity: 0.75 m/s PATIENT NAME PRISCILA CERON Peak Gradient: 4.55 mmHg Mean Gradient: 2.44 mm Hg Estimated PASP: 42.68 mmHg Mitral Valve Peak E-Wave: 0.97 m/s Peak A-Wave: 0.64 m/s Deceleration Time: 215.29 msec Peak Gradient: 3.79 mmHg E/A Ratio: 1.51 Tissue Doppler E' Velocity: 0.08 m/s Tricuspid Valve TR Velocity: 2.86 m/s Estimated RAP: 10 mmHg TR Gradient: 32.68 mmHg Estimated RVSP: 42.68 m mHg LVOT Peak Velocity: 1.23 m/s Mean Velocity: 0.91 m/s Peak Gradient: 6.01 mmHg Mean Gradient: 3.62 mm Hg LVOT Diameter: 2.52 cm LVOT VTI: 29.96 cm [email or web address] [email or web address] Electronically Signed by Altagracia Curran MD on at 1311 PATIENT NAME PRISCILA CERON 2021-12-02 09:14:00-00:00 [facility] Cardiology Consultation REPORT #: [id number] REPORT STATUS: Signed DATE: 12/02/21 TIME: 913 PATIENT: PRISCILA CERON UNIT #: [id number] ROOM #: N.0383 BED: 1 : 44 AGE: 75 SEX: M ATTEND: Krystian Simon DO ADM AUTHOR: Breann Hirsch NP ATTENTION *EDITS and/or ADDENDA must be made in Patient Ke eper for this note. * * Edits and ammendments created in [facility] are not visible * * in Patient Keeper or the legal medical record (HPF). * -- CO-SIGNATURE -- COMMENTS: I have seen and examined tonya shepherd and discussed with BLAST FURNACE OPERATOR. Agree with the findings and plan as documented. Moderate complexity. Permissive HTN. Neuro eval pending. TTE pending. On PO Apixaban. If recurrent CVA, would consider switching to Xarelto Hold home BB and monitor HR. Improved this AM. Altagracia Curran MD Interventional Cardiology [facility] [phone] Signed in PatientKeeper by ALTAGRACIA CURRAN MD on 12/02/21 at 12:27 -- ASSESSMENT AND PLAN -- GENERAL ASSESSMENT: Bradycardia - HR 39-50 overnight. When awake 50-70s - No AV ishaan blocking agents on board current. - Pt believes baseline HR on low-normal - No PATT - TSH 0.8 CVA - Dysarthria/AMS. Now A/Ox3 - CT brain, CTA head and neck negative - Await neurology recommendations - Echo pending Hypertension - SBP 150s 170s - Permissive hypertension Paroxysmal atrial fibrillation - EKG sinus rhythm with PACs - Continue eliquis - Hx of PVI - reports several years prior - Resume metoprolol when able Hyperlipidemia - LDL 144 - Agree statin BPH Thank you for this consult. Please call if Peak 10. We will follow. Breann Hirsch, TIER LIFT OPERATOR, BOXING AND PRESSING SUPERVISOR [facility] -- HISTORY -- CONSULT REQUESTED BY: Ely Simon DO DATE/TIME AT BEDSIDE: 2021-12-02 REASON FOR CONSULT: Bradycardia CHIEF COMPLAINT: AMS and difficulty speaking HPI: Patient is a 75-year-old male with a known past medical history of hypertension, atrial fibrillation, hyperlipidemi a, history of CVA. He was brought to the hospital on 12/01/2021 secondary t o altered mental status and difficulty with speech. He was brought in via EM S. He came in initially as a stroke alert to the ER but u nfortunately was out of the tPA window. His initial head CT, CTA of his brain and neck came back neg ative for acute infarct or large vessel occlusion. He was admitted under th e primary service with neurology consultation. It was noted that he was on Eliquis, statin, amlodipine, and metoprolol at home. His blood pr essure medications were held due to permissive hypertension. Overnight it was noted on telemetry that his heart rates were in the 30s to 40s when he was sleeping, 50s when he was awake. Cardiology was asked to consult secondary to his bradycardia. PAST MEDICAL HISTORY: Hypertension Atrial fibrillation status post ablation Hyperlipidemia TIA/CVA PAST SURGICAL HISTORY: PVI -SOCIAL HISTORY- -TOBACCO USE- DETAILS/COMMENTS: Denies -ALCOHOL USE- DETAILS/COMMENTS: Denies -- ALLERGIES/HOME MEDS -- ALLERGIES: cetirizine (Unknown - Allergy) HOME MEDICATIONS: amLODIPine Tab (Norvasc Tab) 10 MG PO DAILY Apixaban Tab (Eliquis Tab) 5 MG PO BID Atorvastatin Tab (Lipitor Tab) Oral Fluticasone Prop Nasal [place] (Flonase Nasal Spra y) 2 SPRAY Nasal DAILY Gabapentin Cap (Neurontin Cap) 300 MG PO TID glipiZIDE Tab (Glucotrol Tab) Oral Imitrex tablet (sumatriptan succinate) 50 MG PO Q2H Lisinopril Tab (Prinivil Tab) 400 Oral magnesium oxide tablet Oral Metoprolol Tartrate Tab (Lopressor Tab) 25 MG PO BID Mobic tablet (meloxicam) 15 MG PO DAILY Tamsulosin Cap (Flomax Cap) 4 Oral Vitamin B-12 tablet (cyanocobalamin (vitamin B-1 2)) 1000 MCG PO DAILY -- SUBJECTIVE -- -REVIEW OF SYSTEMS- GENERAL: Negative for fever, malaise, fatigue. EYES: Negative for blurry vision. No diplopia. EARS/NOSE/THROAT: Negative for sore throat. No o talgia. No rhinorrhea. Speech difficulty BREAST: Negative for change in shape, swelling, masses, nipple discharge, pain, skin changes. RESPIRATORY: Negative for dyspnea or wheeze. No cough. CARDIOVASCULAR: Negative for chest pain or palpi tations. No extremity swelling. GASTROINTESTINAL: Negative for abdominal pain or nausea. No emesis. No diarrhea. GENITOURINARY: Negative for dysuria, frequency, or urgency. No gross hematuria. MUSCULOSKELETAL: Negative for joint stiffness, p ain, or arthralgias. SKIN: Negative for rashes. No pruritus. NEUROLOGICAL: Negative for headache. No vertigo. Denies paresthesias. PSYCHIATRIC: Negative for specific complaints. ENDOCRINE: Negative for cold intolerance, heat i ntolerance, polyphagia, polydipsia, polyuria, weight change , fatigue. HEMATALOGIC / LYMPHORETICULAR: Negative for exce ssive bleeding, unusual masses. ALLERGIC / IMMUNOLOGIC: Negative for heat/cold i ntolerance, polydipsia, or polyuria. -- OBJECTIVE -- VITALS (12/01 09:15 - 12/02 09:15): Temperature C: 36.5 (36.5 - 37.8) Temperature source: Oral Pulse Rate 54 (41 - 86) Respiratory rate: 18 (18 - 22) BP: 177/76 (147/64 - 177/76) I/Os (12/01 07:00 - 12/02 07:00): Net 120 Intake 120 -EXAM- GENERAL: Well developed, well nourished, in no a pparent distress. HEAD: Normocephalic, atraumatic. EYES: PERRL, EOM intact, conjunctiva and sclera clear, without nystagmus, lids normal. NECK: No masses, no thyromegaly, no abnormal cer vical nodes, trachea midline. CHEST: Grossly normal appearance. LUNGS: Clear bilaterally with normal respirator y effort. HEART: Regular rate and rhythm, normal S1, S2, n o murmurs, no rubs, no gallops, no clicks. ABDOMEN: Soft, non-tender, no organomegaly, no m asses noted. MUSCULOSKELETAL: No deformity, no scoliosis note d of thoracic or lumbar spine, joint ROM grossly normal, normal gait a nd station. EXTREMITIES: No clubbing, no cyanosis, no edema. NEUROLOGICAL: No focal deficits, cranial nerves II-XII grossly intact, normal sensation, normal reflexes, normal coord ination, normal muscle strength, normal tone. SKIN: Intact without significant lesions, or darryl hes. PSYCHIATRIC: Alert and oriented to time, person, place. Normal mood and affect, intact judgment and insight. -- DATA -- MEDICATIONS polyethylene glycoL 3350 1 PKT PO DAILY PRN FLUTICASONE PROPIONATE 2 SPRAY NASAL DAILY SUMAtriptan succinate 50 MG PO Q2H PRN SODIUM CHLORIDE 0.9% 1000 ML IV .[id number] IPRATROPIUM/ALBUTEROL SULFATE 3 ML NEB RTQ6H PRN GABAPENTIN 300 MG PO TID DOCUSATE SODIUM 100 MG PO Q12HR niCARdipine HCL 40 MG IV ASDIR APIXABAN 5 MG PO BID cefTRIAXone SODIUM with/in SODIUM CHLORIDE 0.9% 2 GM IV DAILY morphine SULFATE 2 MG IV Q4H PRN ONDANSETRON HCL/PF 4 MG IV Q4H PRN SODIUM CHLORIDE 0.9% 1000 ML IV .[id number] morphine SULFATE 4 MG IV Q4H PRN LABETALOL HCL 10 MG IV Q1H PRN FAMOTIDINE 20 MG PO Q12HR hydrALAZINE HCL 10 MG IV Q6H PRN ACETAMINOPHEN 650 MG PO Q4H PRN HYDROcodone BITARTRATE/APAP 1 TAB PO Q4H PRN ATORVASTATIN CALCIUM 40 MG PO .AT BEDTIME CYANOCOBALAMIN 1000 MCG PO DAILY ACETAMINOPHEN 650 MG RECTAL Q4H PRN TAMSULOSIN 0.4 MG PO DAILY NA CHLOR 0.9%/POT CHLORIDE 20 MEQ IV .[id number] LABS GLU BED (12/02/21 06:54) GLUBED 144 H GLU BED (12/01/21 22:33) GLUBED 115 H GLU BED (12/01/21 11:39) GLUBED 224 H TROPI (12/01/21 09:59) TROPONIN-I 0.029 TSH (12/01/21 09:59) THYROID STIMULATING HORMONE 0.804 Signed in PatientKeeper by Breann Hirsch NP on 12/02/21 at 10:48 Cosigned by ALTAGRACIA CURRAN MD on 12/02/21 at 12: 27 Electronically Signed by Breann Hirsch NP on at 1227 Electronically Signed by Altagracia Curran MD on at 1227 ATTENTION *EDITS and/or ADDENDA must be made in Patient Ke eper for this note. * * Edits and ammendments created in [facility] are not visible * * in Patient Keeper or the legal medical record (HPF). * RPT #: [id number] END OF REPORT 2021-12-01 12:19:00-00:00 [facility]W [facility] ([facility] Hospitalist Marquita Hugo REPORT #: [id number] REPORT STATUS: Signed DATE: 12/01/21 TIME: 1219 PATIENT: PRISCILA CERON UNIT #: [id number] ROOM #: N.0383 BED: 1 : 44 AGE: 75 SEX: M ATTEND: Krystian Simon DO ADM AUTHOR: Shravan Hawthorne MD ATTENTION *EDITS and/or ADDENDA must be made in Patient Ke eper for this note. * * Edits and ammendments created in [employer] are not visible * * in Patient Keeper or the legal medical record (HPF). * -- HISTORY -- ADMISSION DATE: 2021-12-01 PRIMARY CARE PROVIDER: Primary or Family Physician, No PAST MEDICAL HISTORY: Hypertension, history of TIA, atrial fibrillatio n FAMILY HISTORY: No family history of premature coronary artery d isease -- ALLERGIES/HOME MEDS -- ALLERGIES: cetirizine (Unknown - Allergy) HOME MEDICATIONS: amLODIPine Tab (Norvasc Tab) 10 MG PO DAILY Apixaban Tab (Eliquis Tab) 5 MG PO BID Atorvastatin Tab (Lipitor Tab) Oral Fluticasone Prop Nasal [place] (Flonase Nasal Spra y) 2 SPRAY Nasal DAILY Gabapentin Cap (Neurontin Cap) 300 MG PO TID glipiZIDE Tab (Glucotrol Tab) Oral Imitrex tablet (sumatriptan succinate) 50 MG PO Q2H Lisinopril Tab (Prinivil Tab) 400 Oral magnesium oxide tablet Oral Metoprolol Tartrate Tab (Lopressor Tab) 25 MG PO BID Mobic tablet (meloxicam) 15 MG PO DAILY Tamsulosin Cap (Flomax Cap) 4 Oral Vitamin B-12 tablet (cyanocobalamin (vitamin B-1 2)) 1000 MCG PO DAILY -- OBJECTIVE -- VITALS (11/30 12:19 - 12/01 12:19): Temperature F: 98.5 Temperature C: 39.0 Temperature source: Axillary Pulse Rate 102 (71 - 102) Respiratory rate: 18 (12 - 24) BP: 154/68 (154/68 - 230/113) Blood pressure source: Monitor -- DATA -- LABS GLU BED (12/01/21 11:39) GLUBED 224 H TROPI (12/01/21 09:59) TROPONIN-I 0.029 TSH (12/01/21 09:59) THYROID STIMULATING HORMONE 0.804 TROPI (12/01/21 06:15) TROPONIN-I <0.020 MAG (12/01/21 06:15) MAGNESIUM 1.7 L HGBA1C - GLYCOSYLATED HGB (12/01/21 06:15) GLYCOSYLATED HEMOGLOBIN (HA1C) 6.2 H LIPID PROFILE (CORONARY RISK) (12/01/21 06:15) TRIGLYCERIDES 222 H CHOLESTEROL 227 H HDL CHOLESTEROL 39 LIPOPROTEIN LDL 144 H CORONARY RISK FACTOR 5.82 URINALYSIS COMPLETE (12/01/21 01:53) UA COLOR Colorless UA APPEARANCE Clear UA GLUCOSE DIPSTICK 2+ UA BILIRUBIN DIPSTICK NEGATIVE UA KETONE DIPSTICK NEGATIVE UA SPECIFIC GRAVITY 1.023 UA BLOOD DIPSTICK 1+ UA PH DIPSTICK 8.0 UA PROTEIN DIPSTICK 2+ H UA UROBILINOGEN DIPSTICK NEGATIVE UA NITRITE DIPSTICK NEGATIVE UA ASCORBIC ACID DIPSTICK NEGATIVE UA LEUKOCYTE ESTERASE DIPSTICK NEGATIVE UA WBC 0-5 UA RBC 0-5 UA EPITHELIAL CELLS None UA BACTERIA None CBC W/AUTO DIFF (12/01/21 01:25) WHITE BLOOD CELL 6.8 RED BLOOD CELL 4.83 HEMOGLOBIN 14.6 HEMATOCRIT 42.4 MEAN CELL VOLUME 88 MEAN CELL HGB 30.2 MEAN CELL HGB CONCENTRATION 34.4 H RED CELL DISTRIBUTION WIDTH 13.3 PLATELET COUNT 149 MEAN PLATELET VOLUME 11.4 NEUTROPHIL % 42.2 IMMATURE GRANULOCYTE % 0.4 LYMPHOCYTE % 41.6 H MONOCYTE % 7.3 EOSINOPHIL % 7.5 H BASOPHIL % 1.0 NUCLEATED RBC % 0.0 NEUTROPHIL # 2.9 LYMPHOCYTE # 2.84 H MONOCYTE # 0.5 EOSINOPHIL # 0.5 BASOPHIL # 0.1 BASIC METABOLIC PANEL (12/01/21 01:25) SODIUM 138 POTASSIUM 3.0L L CHLORIDE 101 CARBON DIOXIDE 25 GLUCOSE 161H H BLOOD UREA NITROGEN 12 GLOMERULAR FILTRATION RATE >=60 max estimate CREATININE 1.08 CALCIUM 9.0 TROPI (12/01/21 01:25) TROPONIN-I <0.020 GLU BED (12/01/21 01:08) GLUBED 116 H -- ASSESSMENT AND PLAN -- GENERAL ASSESSMENT: Chief complaint: Altered mental status and difficulty in speech History of present illness: 75-year-old male with past m edical history of hypertension, atrial fibrillation status post ablation, hyperlipidemia, history of TIA/CVA was brought to the hospital by EMS due to altered mental status and difficulty in speech. Last known normal was around 12 P M. According to patient 5 he looks confused and was not able to speak. He was moving his all 4 extre mities. He came as a stroke alert to the emergency room last night but was o ut of TPA window. Initial CT head, CTA brain and neck came back negative for acute infarct or large vessel occlusion. He was admitted to the hospital for f urther management. Neurology has been consulted.Patient is on Eliquis seconda ry to history of atrial fibrillation status post abl ation. According to family he is compliant with his Medications. Assessment: Acute CVA - Patient presented with dysarthria and altered mental status - Initial CT brain, CT head and neck normal - On Eliquis and statin at home. - LDL 144 on admission, hemoglobin A1c 6.2. Goal LDL less than 70. - Start Lipitor 80 mg at bedtime - Consult speech therapy, physical therapy, occu pational therapy - Patient currently nothing by mouth as unable t o follow commands. Speech therapy will reevaluate in a.m. History of hypertension - On amlodipine and metoprolol at home. Currentl y on hold. - Allow permissive hypertension. -When necessary hydralazine to keep systolic blo od pressure below 180 History of BPH - On tamsulosin DVT prophylaxis: STDs GI prophylaxis: IV Pepcid CODE STATUS: Full code Plan discussed at length with patient's and son at bedside. Plan: - Continue present management. - Check MRI, echo Disposition: - Discharged when medically stable. Review of systems: Unable to obtain due to patient's condition Physical exam: CONSTITUTIONAL: well developed, no acute distres s HENT: atraumatic, nose normal and normocephalic EYES: conjunctiva normal, EOM normal and CHANTELLE CARDIOVASCULAR: heart sounds normal, intact dist al pulses PULMONARY/CHEST WALL: breath sounds normal and e ffort normal ABDOMINAL: appearance normal, bowel sounds mariluz l and soft NEUROLOGICAL: awake, alert, Not following comman ds, is aphasic. Moving all 4 extremities MUSCULOSKELETAL: No cyanosis or clubbing EXTREMITIES:Strength 4+/5 in all 4 extremities SKIN:No rash Quality: Medications: I attest that the foregoing medication list in the medical record is true, accurate, and complete to the best of m y knowledge. Attestation: Time Spent on Patient Care:>35 minutes - Coordination of Care - > 50% of time spent on Counseling/Care Coordin ation Care Activities / Care Coordination: - I have reviewed the history and repeated the k ey elements - I have seen and examined this patient - I have reviewed the progre ss in the clinical course since the last examination - I have discussed the patient's conditi on with other members of the care team -- QUALITY -- -MEDICATIONS- - I attest that the foregoing medication list i n the medical record is true, accurate, and complete to the best of my knowled ge. -ADVANCED CARE PLAN >65- PATIENT HAS AN ADVANCE CARE PLAN: Yes PATIENT HAS A SURROGATE DECISION MAKER: Yes Jasson -VTE PROPHYLAXIS -GENERAL- TYPE OF VTE mechanical compression device Signed in PatientKeeper by Shravan Hawthorne MD on 11/12 09/03 at 22:01 Electronically Signed by Shravan Hawthorne MD on at 2201 ATTENTION *EDITS and/or ADDENDA must be made in Patient Ke eper for this note. * * Edits and ammendments created in [employer] are not visible * * in Patient Keeper or the legal medical record (HPF). * RPT #: [id number] END OF REPORT 2021-12-01 06:18:00-00:00 HCANW [facility] ([facility]) Med Order Sheet REPORT #: [id number] REPORT STATUS: Signed DATE: 12/01/21 TIME: 617 PATIENT: PRISCILA CERON UNIT #: [id number] ROOM #: N.ERSD BED: 6 : 44 AGE: 75 SEX: M ATTEND: Krystian Simon DO ADM AUTHOR: Ely Simon DO ATTENTION *EDITS and/or ADDENDA must be made in Patient Ke eper for this note. * * Edits and ammendments created in [facility] are not visible * * in Patient Keeper or the legal medical record (HPF). * Admission Medication Reconciliation -- CONTINUED / CHANGED HOME MEDICATIONS -- Home: Apixaban Tab (Eliquis Tab) 5 MG PO BID Hosp: Apixaban Tab (Eliquis Tab) 5 MG PO BID Home: Atorvastatin Tab (Lipitor Tab) Oral Hosp: Atorvastatin Tab (Lipitor Tab) 40 MG Oral at bedtime Home: Fluticasone Prop Nasal [place] (Flonase Nasa l [place]) 2 SPRAY Nasal DAILY Hosp: Fluticasone Prop Nasal [place] (Flonase Nasa l [place]) 2 SPRAY Nasal DAILY Home: Gabapentin Cap (Neurontin Cap) 300 MG PO T ID Hosp: Gabapentin Cap (Neurontin Cap) 300 MG PO T ID Home: Imitrex tablet (sumatriptan succinate) 50 MG PO Q2H PRN migraine (MAX 4 DOSES IN 24 HOURS.) Hosp: SUMAtriptan Tab (Imitrex Tab) 50 MG PO Q2H PRN migraine - MAX 4 DOSES IN 24 HOURS. Home: Tamsulosin Cap (Flomax Cap) 4 Oral Hosp: Tamsulosin Cap (Flomax Cap) 0.4 MG Oral DA MONO Home: Vitamin B-12 tablet (cyanocobalamin (vitam in B-12)) 1000 MCG PO DAILY Hosp: Cyanocobalamin Tab (Vitamin B-12 Tab) 1000 MCG PO DAILY -- STOPPED HOME MEDICATIONS -- Home: amLODIPine Tab (Norvasc Tab) 10 MG PO ALEXSANDER Y Home: glipiZIDE Tab (Glucotrol Tab) Oral Home: Lisinopril Tab (Prinivil Tab) 400 Oral Home: magnesium oxide tablet Oral Home: Metoprolol Tartrate Tab (Lopressor Tab) 25 MG PO BID Home: Mobic tablet (meloxicam) 15 MG PO DAILY Electronically Signed by Ely Simon DO on 0 12/01/21 at 0618 ATTENTION *EDITS and/or ADDENDA must be made in Patient Ke eper for this note. * * Edits and ammendments created in [facility] are not visible * * in Patient Keeper or the legal medical record (HPF). * RPT #: [id number] END OF REPORT 2021-12-01 01:21:00-00:00 [id number] [facility] [address] [place] [address] PATIENT NAME: PRISCILA CERON ADMIT DATE: 12/01/21 ACCOUNT NO: [id number] ROOM NO: [facility] AGE: 75 REPORT TYPE: ELECTROCARDIOGRAM SEX: M ADMITTING PHYSICIAN:Ely Simon DO ATTENDING PHYSICIAN:Ely Simon DO Order: [id number] Test Reason : Resting 12-lead ECG Test Date/Time Stamp: SunDec 01 2021 01:21:14 Blood Pressure : / mmHG Vent. Rate : 078 BPM Atrial Rate : 000 BPM P-R Int : 000 ms QRS Dur : 096 ms QT Int : 393 ms P-R-T Axes : 000 -24 053 degree s QTc Int : 426 ms ATRIAL FIBRILLATION BORDERLINE LEFT AXIS DEVIATION MODERATE ST DEPRESSION ABNORMAL ECG Reviewed by Confirmed by VANCE LOONEY ([id number]) on 022 10:28:19 AM Referred By: Ely Simon Confirmed by:VNACE GREER at 1028 PATIENT NAME PRISCILA CERON 2021-12-01 00:59:00-00:00 [facility] ([facility]) EMERGENCY PROVIDER REPORT REPORT#:[id number] REPORT STATUS: Signed DATE:12/01/21 TIME: 0059 PATIENT: PRISCILA CERON UNIT #: [id number] ROOM: [facility] BED: 6 AGE: 75 SEX: M PCP PHYS: No Primary or Family Ph ysician SERVICE AUTHOR: Kacy Turpin DO * ALL edits or amendments must be made on the el ectronic/computer document * HPI-Stroke/CVA Free Text HPI Notes Free Text HPI Notes 75-year-old male presents from home via EMS with complaint of confusion and speech difficulty. Patient was last known normal at 12 PM yesterday. Patient has a history of previous strokes and TIA. No re ported trauma or injury. Patient is having difficulty with speech and exp ressing himself. No reported chest pain or shortness of breath or any headach e. EMS stated that patient's blood pressure was elevated. Patient presented a s a stroke alert. Patient is not a tPA candidate due to s ymptom onset yesterday at 12 PM and being out of the time window. General Confirmed Patient Yes Initial Greet Date/Time 12/01/21 0059 )( Stroke Notification Alert Advance Notification by EMS? Yes Presentation Chief Complaint: Other Speech, slurred, Speech, unable )( Last Known Well )( Time 1200 Date 11/30/21 Hx Obtained From Family, EMS Onset Occurred Yesterday Symptom Duration Constant )( Progression since Onset Constant Risk-Stroke/CVA Risk Stratification )( Initial NIH Stroke Scale )( Initial NIH Stroke Scale Response Value Level of Consciousness Alert and responsive (0) 0 Ask Month Age 0 questions right (2) 2 Blink Eyes/Squeeze Hands Performs both tasks ( 0) 0 Horizontal EOM NL side/side eye mvmt (0) 0 Visual Sanchez Partial hemianopsia (1) 1 Facial Palsy Normal symmetry (0) 0 Right Arm Motor Drift (10s) No drift 10 sec (0) 0 Left Arm Motor Drift (10s) No drift 10 sec (0) 0 Right Leg Motor Drift (5s) No drift 5 sec (0) 0 Left Leg Motor Drift (5s) No drift 5 sec (0) 0 Limb Ataxia FNF/Heel-Torres No ataxia (0) 0 Sensation (Arms/Legs/Face) No sensory loss (0) 0 Language Aphasia Severe, fragmented (2) 2 Dysarthria Severe slur, unintel (2) 2 Extinction/Inattention Inatt visual/tactile (1) 1 Total 8 VAN Score VAN Score Vision disturbance, Asphasia, Neglect, Negative Weakness Modified Jessica Scale 0- No neurologic symptoms Review of Systems ROS Statements Unable to Obtain ROS Medical condition, Patient condition PMH-Stroke/CVA Stated Complaint STROKE Allergies Coded Allergies: cetirizine (ANAPHYLAXIS 12/01/21) Home Medications Reported Medications Lisinopril 400 Amlodipine (Norvasc) 10 MG PO DAILY Cyanocobalamin (Vitamin B-12) 1,000 MCG PO DAILY Metoprolol Tartrate (Lopressor) 25 MG PO BID Glipizide (Glucotrol) Apixaban (Eliquis) 5 MG PO BID Tamsulosin Er (Flomax) 4 Atorvastatin (Lipitor) Magnesium Oxide Gabapentin (Neurontin) 300 MG PO TID Meloxicam (Mobic) 15 MG PO DAILY Sumatriptan (Imitrex) 50 MG PO Q2H PRN PRN MIGRA INE Fluticasone Propionate (Flonase 50 Mcg/Act Nasal ) 2 SPRAY NASAL DAILY Other Social History Local resident, Good social support Free Text PMH Notes Past Medical History CVA, TIA, BPH, hypertension, diabetes Past Surgical History Unknown Family History Noncontributory Social History Patient reportedly lives with family Physical Exam Vital Signs Vital Signs First Documented: Result Date Time Pulse Ox 97 12/01 0058 B/P 167/113 12/01 0058 B/P Mean 131 12/01 0058 O2 Delivery Room air 12/01 0058 Pulse 79 12/01 0058 Resp 16 12/01 0058 Temp 98.5 12/01 0115 Last Documented: Result Date Time Pulse Ox 95 12/01 0200 B/P 175/72 12/01 0200 B/P Mean 106 12/01 0200 O2 Delivery Room air 12/01 0200 Pulse 87 12/01 0200 Resp 20 12/01 0200 Temp 98.5 12/01 0115 Review of Vital Signs Reviewed, Vital signs abno rmal Focused PE General/Const General/Const Awake, Alert Text/Dict Notes Patient noted to have expressive aphasia on exam . Distress/Hydration Distress severe. MS Head Head Normocephalic Eyes Eyes PERRL, EOMI Ears/Nose/Throat Ears/Nose/Throat Airway patent, Mucous membrane s moist, Pharynx NL MS Neck Neck Supple, Full range of motion, No swelling, Non-tender, No carotid bruit Resp/Chest Respiratory/Chest Breath sounds NL, Breath soun ds = bilat, No respiratory distress, No rales, No rhonchi, No wheezing Cardiovascular Cardiovascular Heart rate NL, Heart sounds NL, No murmurs, Peripheral circulation NL Heart Rate/Rhythm Irreg irregular rhythm. Abdomen/GI Abdomen/GI Soft, Non-tender, No guarding, No re bound MS Upper Extrem Upper Extremity/MS Inspection NL, No swelling, Non-tender MS Lower Extrem Lower Ext/Pelvis/MS Non-tender, No eryt karina, No deformity, Neurologic intact, Vascular intact Text/Dict Notes Pitting edema noted to bilateral lower extremiti es. Skin Skin Color NL, Warm, Dry, Turgor NL Neurologic Neurologic Oriented X3, No motor deficits, No s ensory deficits, CN II - XII intact, Reflexes equal bilat, Cerebellar NL Mental Status Confused. Speech Slow, Expressive aphasia, Receptive aphasia. Psychiatric Psychiatric Affect NL, Mood NL, Cognitive funct ion NL, Thought content NL Interpretation Diagnostics Lab Results Interpretation Results Laboratory Tests 12/01/21 0125: [Embedded Image Not Available] Laboratory Tests: 12/01 12/01 12/01 0108 0125 0125 Chemistry Sodium (135 - 145 mmol/L) 138 Potassium (3.6 - 5.0 mmol/L) 3.0 L Chloride (101 - 111 mmol/L) 101 Carbon Dioxide (21 - 31 mmol/L) 25 BUN (6 - 20 mg/dl) 12 Creatinine (0.64 - 1.27 mg/dL) 1.08 Glomerular Filtr Rate (>60) >=60 max estimate Glucose (70 - 100 mg/dl) 161 H POC Glucose (70 - 105 MG/DL) 116 H Calcium (8.5 - 10.5 mg/dL) 9.0 Troponin I (0.000 - 0.034 ng/mL) <0.020 Hematology WBC (3.2 - 11.5 x10 3/uL) 6.8 RBC (4.20 - 5.70 x10(6)/m) 4.83 Hgb (12.9 - 17.3 g/dL) 14.6 Hct (38.7 - 51.0 %) 42.4 MCV (80 - 100 fL) 88 MCH (26.7 - 33.3 pg) 30.2 MCHC (30.0 - 34.0 g/dL) 34.4 H RDW (11.3 - 14.5 %) 13.3 Plt Count (130 - 408 x10 3/uL) 149 MPV (8.6 - 12.6 fL) 11.4 Neut % (Auto) (40.0 - 70.0 %) 42.2 Lymph % (Auto) (20 - 40 %) 41.6 H [place] % (Auto) (1 - 10 %) 7.3 Eos % (Auto) (0.0 - 5.0 %) 7.5 H Baso % (Auto) (0.0 - 1.0 %) 1.0 Neut # (Auto) (1.6 - 7.2 x10 3/uL) 2.9 Lymph # (Auto) (1.1 - 2.7 x10 3/uL) 2.84 H [place] # (Auto) (0.3 - 0.8 x10 3/uL) 0.5 Eos # (Auto) (0.0 - 0.5 x10 3/uL) 0.5 Baso # (Auto) (0.0 - 0.1 x10 3/uL) 0.1 Immature Gran % (0.0 - 2.0 %) 0.4 Nucleated RBC % (0.0 - 0.9 %) 0.0 12/01 0153 Urines Urine Color (YELLOW) Colorless Urine Appearance (CLEAR) Clear Urine pH (5.0 - 9.0) 8.0 Ur Specific [place] (1.001 - 1.030) 1.023 Urine Protein (NEGATIVE) 2+ H Urine Glucose (UA) (NEGATIVE) 2+ Urine Ketones (NEGATIVE) NEGATIVE Urine Blood (NEGATIVE) 1+ Urine Nitrite (NEGATIVE) NEGATIVE Urine Bilirubin (NEGATIVE) NEGATIVE Urine Urobilinogen (<=1.0) NEGATIVE Ur Leukocyte Esterase (NEGATIVE) NEGATIVE Urine RBC (0 - 5 /HPF) 0-5 Urine WBC (0 - 5 /HPF) 0-5 Ur Epithelial Cells (NONE - FEW /LPF) None Urine Bacteria (NONE SEEN /HPF) None Urine Ascorbic Acid NEGATIVE Recent Impressions: CAT SCAN - CT HEAD/BRAIN W/O CONT 12/01 010 Report Impression - Status: SIGNED Entered: 12/01/2021 0131 IMPRESSION: No acute abnormality. DLP: 758.01 mGy-cm CT dose optimization is achieved for this examin ation by the use of a CT protocol in accordance with ACR practice josé davis and adherence to technical expert's recommendations with automated ex posure control. Impression By: [email or web address] - Caleb Corley MD CAT SCAN - CT ANGIO NECK 12/01 010 Report Impression - Status: SIGNED Entered: 12/01/2021 0144 IMPRESSION: No large vessel occlusion seen. CT ANGIOGRAM OF THE CAROTID ARTERIES: FINDINGS: AORTIC ARCH: Normal branching pattern. RIGHT: COMMON CAROTID ARTERY: No hemodynamically signif icant stenosis. No dissection. INTERNAL CAROTID ARTERY: Eccentric calcified екатерина que at the origin. No stenosis. No dissection. EXTERNAL CAROTID ARTERY: No hemodynamically sign ificant stenosis. No dissection. VERTEBRAL ARTERY: No hemodynamically significant stenosis. No dissection LEFT: COMMON CAROTID ARTERY: No hemodynamically signif icant stenosis. No dissection. INTERNAL CAROTID ARTERY: Eccentric calcified екатерина que at the origin. No stenosis. No dissection. EXTERNAL CAROTID ARTERY: No hemodynamically sign ificant stenosis. No dissection. VERTEBRAL ARTERY: No hemodynamically significant stenosis. No dissection. Soft tissue structures of the neck: No abnormali ty. IMPRESSION: No hemodynamically significant steno sis by NASCET criteria. CT PERFUSION: Study quality: adequate. Perfusion abnormalities: No perfusion abnormalit y. Estimated core infarction volume (CBF <30%) : 0 mL Estimated [id number] and core infarct volume (Tmax >6s): 49 mL Mismatch volume (ischemic penumbra): 49 mL Mismatch ratio: Infinite Mismatch volume = (Tmax>6s) volume - (CBF<30%) v olume Mismatch ratio = (Tmax>6s) volume / (CBF<30%) vo lume IMPRESSION: No localized or regional perfusion a bnormality. Tmax of greater than 6 seconds of 49 mL is diffusely sca ttered throughout the brain, likely technical. No cerebral blood flow abnormality. Impression By: [email or web address] - Caleb Corley MD CAT SCAN - CT ANGIO HEAD 12/02 107 Report Impression - Status: SIGNED Entered: 12/01/2021143 IMPRESSION: No large vessel occlusion seen. CT ANGIOGRAM OF THE CAROTID ARTERIES: FINDINGS: AORTIC ARCH: Normal branching pattern. RIGHT: COMMON CAROTID ARTERY: No hemodynamically signif icant stenosis. No dissection. INTERNAL CAROTID ARTERY: Eccentric calcified екатерина que at the origin. No stenosis. No dissection. EXTERNAL CAROTID ARTERY: No hemodynamically sign ificant stenosis. No dissection. VERTEBRAL ARTERY: No hemodynamically significant stenosis. No dissection LEFT: COMMON CAROTID ARTERY: No hemodynamically signif icant stenosis. No dissection. INTERNAL CAROTID ARTERY: Eccentric calcified екатерина que at the origin. No stenosis. No dissection. EXTERNAL CAROTID ARTERY: No hemodynamically sign ificant stenosis. No dissection. VERTEBRAL ARTERY: No hemodynamically significant stenosis. No dissection. Soft tissue structures of the neck: No abnormali ty. IMPRESSION: No hemodynamically significant steno sis by NASCET criteria. CT PERFUSION: Study quality: adequate. Perfusion abnormalities: No perfusion abnormalit y. Estimated core infarction volume (CBF <30%) : 0 mL Estimated xnvuhu-xd-auue and core infarct volume (Tmax >6s): 49 mL Mismatch volume (ischemic penumbra): 49 mL Mismatch ratio: Infinite Mismatch volume = (Tmax>6s) volume - (CBF<30%) v olume Mismatch ratio = (Tmax>6s) volume / (CBF<30%) vo lume IMPRESSION: No localized or regional perfusion a bnormality. Tmax of greater than 6 seconds of 49 mL is diffusely sca ttered throughout the brain, likely technical. No cerebral blood flow abnormality. Impression By: [email or web address] - Caleb Corley MD CAT SCAN - CT CEREBRAL PERF ANAL 12/01 0108 Report Impression - Status: SIGNED Entered: 12/01/2021 0144 IMPRESSION: No large vessel occlusion seen. CT ANGIOGRAM OF THE CAROTID ARTERIES: FINDINGS: AORTIC ARCH: Normal branching pattern. RIGHT: COMMON CAROTID ARTERY: No hemodynamically signif icant stenosis. No dissection. INTERNAL CAROTID ARTERY: Eccentric calcified екатерина que at the origin. No stenosis. No dissection. EXTERNAL CAROTID ARTERY: No hemodynamically sign ificant stenosis. No dissection. VERTEBRAL ARTERY: No hemodynamically significant stenosis. No dissection LEFT: COMMON CAROTID ARTERY: No hemodynamically signif icant stenosis. No dissection. INTERNAL CAROTID ARTERY: Eccentric calcified екатерина que at the origin. No stenosis. No dissection. EXTERNAL CAROTID ARTERY: No hemodynamically sign ificant stenosis. No dissection. VERTEBRAL ARTERY: No hemodynamically significant stenosis. No dissection. Soft tissue structures of the neck: No abnormali ty. IMPRESSION: No hemodynamically significant steno sis by NASCET criteria. CT PERFUSION: Study quality: adequate. Perfusion abnormalities: No perfusion abnormalit y. Estimated core infarction volume (CBF <30%) : 0 mL Estimated swpzzt-tk-taiw and core infarct volume (Tmax >6s): 49 mL Mismatch volume (ischemic penumbra): 49 mL Mismatch ratio: Infinite Mismatch volume = (Tmax>6s) volume - (CBF<30%) v olume Mismatch ratio = (Tmax>6s) volume / (CBF<30%) vo lume IMPRESSION: No localized or regional perfusion a bnormality. Tmax of greater than 6 seconds of 49 mL is diffusely sca ttered throughout the brain, likely technical. No cerebral blood flow abnormality. Impression By: [email or web address] - Caleb Corley MD Lab Imaging Statement Laboratory radiographic studies reviewed and con sidered in the medical decision-making. ECG #1 Interpretation Text/Dict Note The EKG on initial greet cash e and at 1:21 AM was interpreted and reviewed by me. The rhythm is [normal sinus] with a rate of [address] segments are [ neither elevated or depresse d in any leads] and the T waves are [neither peaked, hyperacute or inverted in any leads]. The TX int ervals are [neither shortened or prolonged] and the QRS intervals are [not pro longed]. The QT segement is [ neither shortened or prolonged]. There is left a xis deviation. There is [no atrial enlargement or ventri cular hypertrophy]. This EKG is [not concerning for either acute coronary syndrome, conduction abnor malities or a clinically significant arrhythmia]. MDM-Stroke/CVA Stroke Thrombolytic Therapy Administered IV Thrombolytic? No, not indicated ED Course Medication(s) Ordered Medication(s) Ordered: Cardiovascular Drugs Sig/Yuval Start time Last Medication Dose Route Stop Time Status Admin Nicardipine HCl 200 ML X1ED STA 12/01 0059 CKD 12/01 IV 12/09 0858 0137 Diagnostic Agents Sig/Yuval Start time Last Medication Dose Route Stop Time Status Admin Iopamidol 0 .STK-MED ONE 12/01 0103 DC 12/01 IV 0122 Gastrointestinal Drugs Sig/Yuval Start time Last Medication Dose Route Stop Time Status Admin Ondansetron HCl 4 MG X1ED STA 12/016 DC IV 12/01 236 0237 Ondansetron HCl 0 .STK-MED ONE 12/02 235 DC IV Free Text MDM Notes Free Text MDM Notes Patient is not a tPA candidate due to being out of the time window for tPA. Last known well was at 12 PM yesterday. Patient is also on Eliquis. CTA of head and neck reveals no evidence of larg e vessel occlusion. CT perfusion reveals no acute abnormality at this t james. Will consult neurology. Information obtained from reports t hat patient has a history of migraines which are complex and caused him to present with strokelike symptoms in the past. Case discussed with admitting physician who acce pted care of patient. Patient was started on Cardene drip for acute hy pertensive emergency. All lab work and x-ray results were reviewed by me. Patient Discharge Departure Vital Signs/Condition Vital Signs First Documented: Result Date Time Pulse Ox 97 12/01 0058 B/P 167/113 12/01 0058 B/P Mean 131 12/01 0058 O2 Delivery Room air 12/01 0058 Pulse 79 12/01 0058 Resp 16 12/01 0058 Temp 98.5 12/01 0115 Last Documented: Result Date Time Pulse Ox 95 12/01 0200 B/P 175/72 12/01 0200 B/P Mean 106 12/01 0200 O2 Delivery Room air 12/01 0200 Pulse 87 12/01 0200 Resp 20 12/01 0200 Temp 98.5 12/01 0115 All vital signs available at the time of this en try have been reviewed. Condition Critical Clinical Impression Clinical Impression Primary Impression: Expressive aphasia Secondary Impressions: CVA ( cerebral vascular accident), Hypertensive emergency, Receptive aphasia Disposition Decision Admit Admit Physician Name Ely Simon DO Admit Physician Hospitalist Request Time 020 Request Date 12/01/21 )( Admission Accepts Yes )( Accepted Time 202 )( Accepted Date 12/01/21 Call Information will see patient, agrees with eval, agrees with plan Discharge/Care Plan Counseled Regarding Diagnosi s, Lab results, Imaging studies, Need for admission Admit Note I have spoken with the patie nt and/or caregivers. I have explained the patient's condition, diagnoses and mario atment plan based on the information available to me at this time. I have answered the patient's and/ or caregiver's questions and addressed any concerns. The patient and/or careg tyra have as good an understanding of the patient 's diagnosis, condition and treatment plan as can be expected at this point. The patient has been stabilized within the capability of the emergency department. The patient wi ll be transported for further care and management or will be moved to an observation or inpatient service. I have communicated with the staff or medical p tiaer taking over this patient's care. Critical Care Time Spent (minutes): 45 Services Performed Patient management by me, Rick e spent at bedside, Reviewing test results, Reviewing imaging, Discussing alicia ent care, Documentation in record, Time with fam/surrogate Patient was critically ill due to: PROMPT EVAL AND TREATMENT, CONT MONITORI NG, IV FLUIDS, LABS/DIAG, COORDINATION OF CARE WITH ER NURSE. My treatment and management were: Patient presented as a strok e alert. Patient was out of the time window for tPA and did not receive tPA. Bas ed on patient's history of complex migraines family stated that he has had episodes like thi s previously. All CT scans and results were reviewed by me. Patient was started on Cardene drip for acute hypertensive emergency. Case discussed with admitting physici an who accepted care of patient. Neurology consultation will be obtained . CC Note 1 Total critical care time [45 ] minutes. Total critical care time documented does not include time spent on separately billed proc edures or the services of residents, students, nurses or physician assista nts. I personally saw and examined the patient. I have reviewed all diagno stic interpretations and treatment plans as written. I was present for the watkins portions of any procedures performed and the inclusive time noted in any critical care statement. Critical care time includes patient m anagement by me, time spent at the patients bedside, time to review lab and imaging results, discussing patient care, documentation in the medical record, and time spent with the f amily or caregiver. Critical care CPT code 73521 Electronically Signed by Kacy Turpin DO on at 0453 RPT #:[id number] END OF REPORT
--- NOTE | 2023-02-12 19:06 | RAD REPORT ---
EXAM DESCRIPTION: RAD - Elbow Right 3 View - 02/12/2023 6:55 pm CLINICAL HISTORY: Pain;Smash injury COMPARISON: No comparisons FINDINGS: Moderate soft tissue swelling is seen along medial elbow. No fracture, dislocation or aggr essive marrow lesion.
--- NOTE | 2023-02-12 19:16 | RAD REPORT ---
EXAM DESCRIPTION: US - UPPER EXTREMITY VENOUS UNILATE - 02/12/2023 7:08 pm CLINICAL HISTORY: Pain;Smash injury Arm swelling and edema. COMPARISON: No comparisons FINDINGS: Right upper extremity venous system was interrogated with Doppler technique. Normal flow, compressibility and augmentation was noted. There is no DVT present. IMPRESSION: No evidence of right upper extremity deep venous thrombosis.
--- NOTE | 2023-02-12 19:21 | EDPHYS ---
Physician Documentation [facility] Name: Héctor Masterson Age: 77 yrs Sex: Male : 1945 Arrival Date: 02/12/2023 Time: 17:19 Bed 18 Private MD: ED Physician Yo Barlow HPI: 02/12 17:46 This 77 yrs old Male presents to ER via Wheelchair with complaints of Fall Injury, snw Elbow Injury. 17:46 Details of fall: The patient fell from an upright position, while walking. Onset: The snw symptoms/episode began/occurred suddenly, today. Associated injuries: The patient sustained right arm, contusion. Severity of symptoms: At their worst the symptoms were mild. The patient has experienced similar episodes in the past. awaiting watchman procedure on the , no eliquis x 3 weeks. pt states he tripped an fell onto concrete patio. Historical: - Allergies: 17:31 No Known Allergies; mb9 - Home Meds: 17:31 Lisinopril Oral [Active]; amlodipine oral [Active]; Aspirin Oral [Active]; mb9 17:35 gabapentin oral [Active]; Metoprolol Tartrate Oral [Active]; apixaban oral [Active]; mb9 Metformin Oral [Active]; tamsulosin oral [Active]; finasteride oral [Active]; - PMHx: 17:31 Diabetes mellitus; Hypertensive disorder; Hypercholesterolemia; TIA; Stroke; Atrial mb9 fibrillation; - Immunization history:: Adult Immunizations up to date. - Social history:: Smoking status: Patient denies any tobacco usage or history of. ROS: 17:44 Constitutional: Negative for fever, chills, and weight loss, Eyes: Negative for injury, snw pain, redness, and discharge, ENT: Negative for injury, pain, and discharge, Neck: Negative for injury, pain, and swelling, Cardiovascular: Negative for chest pain, palpitations, and edema, Respiratory: Negative for shortness of breath, cough, wheezing, and pleuritic chest pain, Abdomen/GI: Negative for abdominal pain, nausea, vomiting, diarrhea, and constipation, Back: Negative for injury and pain, : Negative for injury, bleeding, discharge, and swelling, Psych: Negative for depression, anxiety, suicide ideation, homicidal ideation, and hallucinations. 17:44 MS/extremity: Positive for injury or acute deformity, contusion, swelling, of the right arm. 17:44 Skin: Positive for abrasion(s), of the right arm. 17:44 Neuro: Positive for frequent falls, supposed to use his walker but does not. Exam: 17:43 Constitutional: This is a well developed, well nourished patient who is awake, alert, snw and in no acute distress. Head/Face: Normocephalic, atraumatic. Eyes: Pupils equal round and reactive to light, extra-ocular motions intact. Lids and lashes normal. Conjunctiva and sclera are non-icteric and not injected. Cornea within normal limits. Periorbital areas with no swelling, redness, or edema. ENT: Nares patent. No nasal discharge, no septal abnormalities noted. Tympanic membranes are normal and external auditory canals are clear. Oropharynx with no redness, swelling, or masses, exudates, or evidence of obstruction, uvula midline. Mucous membranes moist. Neck: Trachea midline, no thyromegaly or masses palpated, and no cervical lymphadenopathy. Supple, full range of motion without nuchal rigidity, or vertebral point tenderness. No Meningismus. Chest/axilla: Normal chest wall appearance and motion. Nontender with no deformity. No lesions are appreciated. Cardiovascular: Regular rate and rhythm with a normal S1 and S2. No gallops, murmurs, or rubs. Normal PMI, no JVD. No pulse deficits. Respiratory: Lungs have equal breath sounds bilaterally, clear to auscultation and percussion. No rales, rhonchi or wheezes noted. No increased work of breathing, no retractions or nasal flaring. Abdomen/GI: Soft, non-tender, with normal bowel sounds. No distension or tympany. No guarding or rebound. No evidence of tenderness throughout. Back: No spinal tenderness. No costovertebral tenderness. Full range of motion. Psych: Awake, alert, with orientation to person, place and time. Behavior, mood, and affect are within normal limits. 17:43 Musculoskeletal/extremity: Extremities: grossly normal except: noted in the right arm: contusion, swelling, tenderness, Circulation is intact in all extremities. 17:43 Skin: Appearance: normal except for affected area, injury, contusion(s), that are deep, of the right elbow and palmar aspect of right forearm. Vital Signs: 17:30 BP 153 / 84; Pulse 71; Resp 18; Temp 98.2; Pulse Ox 97% on R/A; Weight 108.86 kg; mb9 Height 6 ft. 5 in. ; Pain 8/10; 17:30 Body Mass Index 28.46 (108.86 kg, 195.58 cm) mb9 17:30 Pain Scale: Adult mb9 MDM: 17:43 Patient medically screened. snw 17:46 Differential diagnosis: abrasion, contusion, fracture. Data reviewed: vital signs, snw nurses notes. Historians other than the Patient: Daughter/Son: Son. Counseling: I had a detailed discussion with the patient and/or guardian regarding: the historical points, exam findings, and any diagnostic results supporting the discharge/admit diagnosis, the presence of at least one elevated blood pressure reading (>120/80) during this emergency department visit, radiology results, the need for outpatient follow up, to return to the emergency department if symptoms worsen or persist or if there are any questions or concerns that arise at home. 19:08 Independent interpretation of the following test(s) in the Emergency Department X-Ray: snw My interpretation is moderate soft tissue edema, neg fx. 02/12 17:42 Order name: Elbow Right 3 View XRAY; Complete Time: 19:08 snw 02/12 19:09 Order name: UPPER EXTREMITY VENOUS UNILATE; Complete Time: 19:19 EDMS 02/12 19:03 Order name: Jose wrap-joint; Complete Time: 19:57 snw 02/12 19:03 Order name: Sling; Complete Time: 19:57 snw 02/12 19:36 Order name: Misc. Order: Walker; Complete Time: 19:57 snw Administered Medications: No medications were administered Disposition: 02/13 12:05 Co-signature as Attending Physician, Yo Barlow MD I reviewed the patient's care rt provided by the Advanced Practice Provider and agree with the diagnosis and treatment plan. Disposition Summary: 02/12/23 19:20 Discharge Ordered Location: Home snw Condition: Stable snw Diagnosis - Fall on same level from slipping, tripping and stumbling without subsequent snw striking against object - Contusion of right forearm snw - Contusion of right upper arm snw Followup: snw - With: Emergency Department - When: As needed - Reason: Worsening of condition Followup: snw - With: Private Physician - When: 2 - 3 days - Reason: Recheck today's complaints, Continuance of care, Re-evaluation by your physician Discharge Instructions: - Discharge Summary Sheet snw - Contusion snw - Cast or Splint Care, Adult snw - Edema snw - How to Use a Walker snw - How to Use a Sling snw Forms: - Medication Reconciliation Form snw - Thank You Letter snw - Antibiotic Education snw - Prescription Opioid Use snw - [email or web address] snw Signatures: Dispatcher [employer] EDMS Nereyda Armijo, COLLEEN-C [employer] TRUCK DRIVER-Csnw Saniya Woodard RN RN mb9 Yo Barlow MD MD rt Corrections: (The following items were deleted from the chart) 02/12 19:09 17:43 Extremity Venous [employer]+[email or web address] ordered. EDMS EDMS
--- NOTE | 2023-02-12 19:21 | ER ---
Nurse's Notes [facility] Name: Héctor Masterson Age: 77 yrs Sex: Male : 1945 Arrival Date: 02/12/2023 Time: 17:19 Bed 18 Private MD: Diagnosis: Fall on same level from slipping, tripping and stumbling without subsequent striking against object;Contusion of right forearm;Contusion of right upper arm Presentation: 02/12 17:28 Chief complaint: Patient states: "About 30 minutes ago, II lost my balance while mb9 picking something up and fell on my right elbow and arm. It hurts and is red/swollen. I bumped the left side of my head" Pt denies LOC. Pt states he's been off his Eliquis for 2-3 weeks due to upcoming Watchman procedure for his heart. Onset of symptoms was February 12, 2023. 17:28 Method Of Arrival: Wheelchair mb9 17:28 Acuity: SHARA 4 mb9 17:30 Coronavirus screen: Vaccine status: Patient reports receiving the 2nd dose of the covid mb9 vaccine. Ebola Screen: No symptoms or risks identified at this time. Initial Sepsis Screen: Does the patient meet any 2 criteria? No. Patient's initial sepsis screen is negative. Does the patient have a suspected source of infection? No. Patient's initial sepsis screen is negative. Risk Assessment: Do you want to hurt yourself or someone else? Patient reports no desire to harm self or others. Triage Assessment: 17:37 General: Appears in no apparent distress. Behavior is cooperative. Pain: Complains of mb9 pain in right arm. Neuro: Charles Agitation-Sedation Scale (RASS): 0 - Alert and Calm Level of Consciousness is awake, alert, obeys commands, Oriented to person, place, time, situation, Appropriate for age. Respiratory: Airway is patent Respiratory effort is even, unlabored, Respiratory pattern is regular, symmetrical. Derm: Skin is pink, warm \\T\\ dry. Musculoskeletal: Range of motion: limited in right elbow. Musculoskeletal: Swelling present in right arm. Historical: - Allergies: 17:31 No Known Allergies; mb9 - Home Meds: 17:31 Lisinopril Oral [Active]; amlodipine oral [Active]; Aspirin Oral [Active]; mb9 17:35 gabapentin oral [Active]; Metoprolol Tartrate Oral [Active]; apixaban oral [Active]; mb9 Metformin Oral [Active]; tamsulosin oral [Active]; finasteride oral [Active]; - PMHx: 17:31 Diabetes mellitus; Hypertensive disorder; Hypercholesterolemia; TIA; Stroke; Atrial mb9 fibrillation; - Immunization history:: Adult Immunizations up to date. - Social history:: Smoking status: Patient denies any tobacco usage or history of. Screenin:00 [facility] ED Fall Risk Assessment (Adult) Score/Fall Risk Level 0 - 2 = Low Risk. Abuse eh3 screen: Denies threats or abuse. Denies injuries from another. Nutritional screening: No deficits noted. Tuberculosis screening: No symptoms or risk factors identified. Assessment: 19:00 General: Appears in no apparent distress. uncomfortable, Behavior is calm, cooperative, eh3 appropriate for age. Pain: Complains of pain in right elbow. Neuro: Level of Consciousness is awake, alert, obeys commands, Oriented to person, place, time, situation. Cardiovascular: Capillary refill < 3 seconds Patient's skin is warm and dry. Respiratory: Airway is patent Respiratory effort is even, unlabored, Respiratory pattern is regular, symmetrical. GI: Abdomen is round non-distended. Derm: Skin is pink, warm \\T\\ dry. Bruising that is dark purple, on right arm. Musculoskeletal: Circulation, motion, and sensation intact. Vital Signs: 17:30 BP 153 / 84; Pulse 71; Resp 18; Temp 98.2; Pulse Ox 97% on R/A; Weight 108.86 kg; mb9 Height 6 ft. 5 in. ; Pain 8/10; 17:30 Body Mass Index 28.46 (108.86 kg, 195.58 cm) mb9 17:30 Pain Scale: Adult mb9 ED Course: 17:23 Patient arrived in ED. mr 17:30 Triage completed. mb9 17:30 Arm band placed on. mb9 17:38 Nereyda Armijo FNP-C is PHCP. snw 17:38 Yo Barlow MD is Attending Physician. snw 18:57 Elbow Right 3 View XRAY In Process Unspecified. EDMS 19:00 Patient has correct armband on for positive identification. Bed in low position. Call eh3 light in reach. Side rails up X2. 19:09 UPPER EXTREMITY VENOUS UNILATE In Process Unspecified. EDMS 19:24 Leonor Adame, RN is Primary Nurse. eh3 19:55 Jose wrap to right elbow Sling applied to right arm. Walker. eh3 19:56 No provider procedures requiring assistance completed. Patient did not have IV access eh3 during this emergency room visit. Administered Medications: No medications were administered Medication: 19:56 VIS not applicable for this client. eh3 Outcome: 19:20 Discharge ordered by . snmadi 19:56 Discharged to home ambulatory, with family, with walker eh3 19:56 Condition: stable 19:56 Discharge instructions given to patient, Instructed on discharge instructions, follow up and referral plans. Demonstrated understanding of instructions, follow-up care. 19:57 Patient left the ED. eh3 Signatures: Dispatcher [employer] EDNereyda Garcia, OPTICAL DISPENSER-C OPTICAL DISPENSER-Augustusw Man Saniya mcadams Leonor Adame, RN RN 3 Saniya Woodard, RN RN 9 Corrections: (The following items were deleted from the chart) 17:31 17:28 Chief complaint: Patient states: "About 30 minutes ago, II lost my balance while mb9 picking something up and fell on my right elbow and arm. It hurts and is red/swollen" Pt denies LOC. Pt states he's been off his Eliquis for 2-3 weeks due to upcoming Watchman procedure for his heart. mb9 17:35 17:28 Chief complaint: Patient states: "About 30 minutes ago, II lost my balance while mb9 picking something up and fell on my right elbow and arm. It hurts and is red/swollen" Pt denies LOC or hitting head. Pt states he's been off his Eliquis for 2-3 weeks due to upcoming Watchman procedure for his heart. mb9
[2023-02-12 20:27] VITALS: BP 153/84; TEMP 98.2; O2SAT 97
== END 2023-02-12 19:57 | disposition home or self-care (01) ==
LOC: ER 17:19
DX: S50.11XA Contusion of right forearm, initial encounter (principal); S40.021A Contusion of right upper arm, initial encounter; W01.0XXA Fall on same level from slipping, tripping and stumbling without subsequent striking against object, initial encounter; R29.6 Repeated falls; E11.9 Type 2 diabetes mellitus without complications; I10 Essential (primary) hypertension; I48.91 Unspecified atrial fibrillation; Z79.82 Long term (current) use of aspirin
CPT/HCPCS: 93971; 99283

== ENCOUNTER 2025-06-09 09:23 | Emergency (ER) | payer OTHER ==
--- NOTE | 2025-06-09 11:08 | RAD REPORT ---
EXAMINATION: ONE VIEW CHEST XR CLINICAL INDICATION: Male, 79 years old.,generalized weaknes TECHNIQUE: Frontal chest projection is submitted. Examination is limited by patient positioning and t echnique. COMPARISON: No prior exam. FINDINGS: The lungs are well inflated and clear. No pneumothorax or sizable effusion. The heart is normal in s ize. Mediastinal contours are unremarkable. IMPRESSION: No acute intrathoracic abnormalities.
[2025-06-09 11:36] LABS: Absolute Lymphocytes (CBC) 1.0 K/uL (0.7-4.9); Hematocrit 39.5 % (39.6-49.0); Hemoglobin 13.5 g/dL (13.6-17.9); MCH 31.5 pg (27.0-35.0); MCHC 34.1 g/dL (32.0-36.0); MCV 92.4 fL (80-100); MPV 8.8 fL (7.6-11.3); Nucleated RBC Absolute Count 0.0 (0-0); Nucleated Red Blood Cells % 0.1 % (0-0); RBC Red Blood Cell Count 4.28 M/uL (4.33-5.43); White Blood Count 3.50 thou/uL (4.3-10.9)
[2025-06-09 11:37] LABS: Blood Morphology Comment NOT SEEN (NOT SEEN); White Blood Cell Scan OK (OK)
[2025-06-09 11:49] LABS: Anion Gap 7.6 mEq/L (5.0-15.0); BUN Blood Urea Nitrogen 25.0 mg/dL (7-18); Glucose Level 184.0 mg/dL (74-106); Magnesium 2.1 mg/dL (1.6-2.4); NT PRO-BNP 445.0 pg/mL (<450); Potassium 3.6 mEq/L (3.5-5.1); Troponin High Sensitivity 15.5 pg/mL (<58.9)
--- NOTE | 2025-06-09 12:31 | ER ---
Nurse's Notes [facility] Name: Héctor Masterson Age: 79 yrs Sex: Male : 1945 Arrival Date: 06/09/2025 Time: 09:23 Bed DX3 Private MD: Diagnosis: Muscle weakness (generalized) Presentation: 06/09 09:58 Chief complaint: Patient states: he had low blood pressure with a systolic blood ap3 pressure of 104 and was feeling generally weak. Coronavirus screen: At this time, the client does not indicate any symptoms associated with coronavirus-19. Ebola Screen: No symptoms or risks identified at this time. Initial Sepsis Screen: Does the patient meet any 2 criteria? No. Patient's initial sepsis screen is negative. Does the patient have a suspected source of infection? No. Patient's initial sepsis screen is negative. Risk Assessment: Do you want to hurt yourself or someone else? Patient reports no desire to harm self or others. Onset of symptoms was June 09, 2025. 09:58 Method Of Arrival: Ambulatory ap3 09:58 Acuity: SHARA 3 ap3 Triage Assessment: 09:59 General: Appears in no apparent distress. Behavior is calm, cooperative, appropriate ap3 for age. Pain: Denies pain. Neuro: Reports weakness that has since resolved. Cardiovascular: Patient's skin is warm and dry. Respiratory: Airway is patent Respiratory effort is even, unlabored, Respiratory pattern is regular, symmetrical. Historical: - Allergies: 09:57 No Known Allergies; ap3 - PMHx: 09:57 Atrial fibrillation; diabetes mellitus; Hypercholesterolemia; Hypertensive disorder; ap3 stroke; TIA; heart failure (TIA); low platelets (TIA); - Immunization history:: Adult Immunizations up to date. - Infectious Disease History:: Denies. - Social history:: Smoking status: Patient denies any tobacco usage or history of. Screenin:00 Abuse screen: Denies threats or abuse. Nutritional screening: No deficits noted. ap3 Tuberculosis screening: No symptoms or risk factors identified. 12:38 [facility] ED Fall Risk Assessment (Adult) History of falling in the last 3 months, ap3 including since admission No falls in past 3 months (0 pts) Confusion or Disorientation No (0 pts) Intoxicated or Sedated No (0 pts) Impaired Gait No (0 pts) Mobility Assist Device Used No (0 pt) Altered Elimination No (0 pt) Score/Fall Risk Level 0 - 2 = Low Risk Oriented to surroundings, Maintained a safe environment, Educated pt \T\ family on fall prevention, incl call for assistance when getting out of bed, Assessed \T\ reinforced patient's understanding of fall precautions, Hourly rounding (assess needs \T\ fall precautionary measures) done, Used ambulatory aids as needed (educated on \T\ assisted with). Vital Signs: 09:58 BP 141 / 68; Pulse 62; Resp 17; Temp 98.1; Pulse Ox 95% ; Weight 102.97 kg; ap3 09:59 Height 6 ft. 5 in. ; ap3 12:38 BP 136 / 73; Pulse 68; Resp 17; Pulse Ox 96% on R/A; ap3 ED Course: 09:27 Patient arrived in ED. mr 09:32 Umair Coppola DO is Attending Physician. ms3 09:59 Triage completed. ap3 10:00 Arm band placed on right wrist. ap3 10:35 XRAY Chest (1 view) In Process Unspecified. EDMS 11:27 EKG done, by loom technician. reviewed by Umair Coppola DO. ts3 11:28 Initial lab(s) drawn, by slab worker, sent to lab. Inserted saline lock: 20 gauge in right ts3 antecubital area, using aseptic technique. Blood collected. Flushed with 10 mL NS. 12:38 No provider procedures requiring assistance completed. IV discontinued, intact, ap3 bleeding controlled, No redness/swelling at site. Pressure dressing applied. 12:39 Patient has correct armband on for positive identification. Adult w/ patient. Provided ap3 Education on: discharge instructions. Administered Medications: No medications were administered Medication: 12:39 VIS not applicable for this client. ap3 Outcome: 12:30 Discharge ordered by MD. ms3 12:38 Discharged to home ambulatory, with family, ap3 12:38 Condition: good 12:38 Discharge instructions given to patient, family, Instructed on discharge instructions, follow up and referral plans. Demonstrated understanding of instructions, follow-up care, 12:39 Patient left the ED. ap3 Signatures: Dispatcher [employer] EDMS Saniya Conway, Reg Reg mr Afshan Oneil, GISELLE RN ap3 Umair Coppola DO DO ms3 [place] ts3
--- NOTE | 2025-06-09 12:31 | EDPHYS ---
Physician Documentation [facility] Name: Héctor Masterson Age: 79 yrs Sex: Male : 1945 Arrival Date: 06/09/2025 Time: 09:23 Bed DX3 Private MD: ED Physician Umair Coppola HPI: 06/09 12:32 This 79 yrs old Male presents to ER via Ambulatory with complaints of Blood Pressure ms3 Problem. 12:32 79-year-old male past medical history of atrial fibrillation, diabetes, ms3 hypercholesterolemia, hypertension, stroke, TIA presents to the emergency department for generalized weakness on waking up this morning. Patient states this is been ongoing for a few weeks. Patient noted his blood pressure to be 104 systolic this morning. Patient also notes he has a history of low platelets and his platelets were 67. Patient denies any aggravating factors. Patient states he ate and is currently feeling better. Historical: - Allergies: 09:57 No Known Allergies; ap3 - PMHx: 09:57 Atrial fibrillation; diabetes mellitus; Hypercholesterolemia; Hypertensive disorder; ap3 stroke; TIA; heart failure (TIA); low platelets (TIA); - Immunization history:: Adult Immunizations up to date. - Infectious Disease History:: Denies. - Social history:: Smoking status: Patient denies any tobacco usage or history of. ROS: 12:32 Cardiovascular: Negative for chest pain, and palpitations. Respiratory: Negative for ms3 shortness of breath, cough, wheezing, and pleuritic chest pain, Abdomen/GI: Negative for abdominal pain, nausea, vomiting, diarrhea, and constipation, MS/Extremity: Negative for injury and deformity, 12:32 Constitutional: Positive for Generalized weakness, Exam: 12:32 Constitutional: This is a well developed, well nourished patient who is awake, alert, ms3 and in no acute distress. Respiratory: Lungs have equal breath sounds bilaterally, clear to auscultation and percussion. No rales, rhonchi or wheezes noted. No increased work of breathing, no retractions or nasal flaring. Abdomen/GI: Soft, non-tender, with normal bowel sounds. No distension or tympany. No guarding or rebound. No evidence of tenderness throughout. Skin: Warm, dry with normal turgor. Normal color with no rashes, no lesions, and no evidence of cellulitis. MS/ Extremity: Pulses equal, no cyanosis. Neurovascular intact. Full, normal range of motion. 12:32 Cardiovascular: Rate: normal, Rhythm: regular, Pulses: no pulse deficits are appreciated, 12:32 ECG was reviewed by the Attending Physician. ms3 Vital Signs: 09:58 BP 141 / 68; Pulse 62; Resp 17; Temp 98.1; Pulse Ox 95% ; Weight 102.97 kg; ap3 09:59 Height 6 ft. 5 in. ; ap3 12:38 BP 136 / 73; Pulse 68; Resp 17; Pulse Ox 96% on R/A; ap3 MDM: 10:00 Medical Screening Exam initiated ms3 12:36 Differential Diagnosis Electrolyte abnormality vs anemia vs arrhythmia . Data reviewed: ms3 vital signs, nurses notes, lab test result(s), EKG, radiologic studies, and as a result, I will discharge patient. Independent interpretation of the following test(s) in the Emergency Department EKG: See my EKG interpretation above X-Ray: My interpretation is Chest x-ray image reviewed by me did not reveal pneumonia. Counseling: I had a detailed discussion with the patient and/or guardian regarding the historical points, exam findings, and any diagnostic results supporting the discharge/admit diagnosis, lab results, radiology results, the need for outpatient follow up, to return to the emergency department if symptoms worsen or persist or if there are any questions or concerns that arise at home. Special discussion: I discussed with the patient/guardian in detail that at this point there is no indication for admission to the hospital. It is understood, however, that if the symptoms persist or worsen the patient needs to return immediately for re-evaluation. ED course: Discussed labs, EKG, chest x-ray findings with patient and his son. Patient to follow-up with primary care physician in 2 to 3 days. Patient and his son understand and agree with plan. All questions were answered. Return precautions were discussed include worsening symptoms, or any other concerns.. 06/09 10:03 Order name: Basic Metabolic Panel; Complete Time: 12:05 ms3 06/09 10:03 Order name: CBC with Diff; Complete Time: 12:05 ms3 06/09 10:03 Order name: Magnesium; Complete Time: 12:05 ms3 06/09 10:03 Order name: NT PRO-BNP; Complete Time: 12:05 ms3 06/09 10:03 Order name: Troponin HS; Complete Time: 12:05 ms3 06/09 11:38 Order name: CBC Smear Scan; Complete Time: 12:05 EDMS 06/09 10:03 Order name: XRAY Chest (1 view); Complete Time: 11:18 ms3 06/09 10:03 Order name: EKG - Nurse/Tech; Complete Time: 11:27 ms3 06/09 10:03 Order name: IV Saline Lock; Complete Time: 11:27 ms3 06/09 10:03 Order name: Labs collected and sent; Complete Time: 11:27 ms3 06/09 10:03 Order name: O2 Per Protocol; Complete Time: 12:37 ms3 06/09 10:03 Order name: O2 Sat Monitoring; Complete Time: 12:37 ms3 EC:32 Rate is 50 beats/min. Rhythm is regular. Left axis deviation noted. VT interval is ms3 normal. QRS interval is normal. Clinical impression: Sinus bradycardia and 1st degree AV block. Interpreted by me. Reviewed by me. Administered Medications: No medications were administered Disposition Summary: 06/09/25 12:30 Discharge Ordered Notes: Location: Home ms3 Condition: Stable ms3 Diagnosis - Muscle weakness (generalized) ms3 Followup: ms3 - With: Private Physician - When: 2 - 3 days - Reason: Recheck today's complaints Discharge Instructions: - Discharge Summary Sheet ms3 - Weakness ms3 Forms: - Medication Reconciliation Form ms3 - Antibiotic Education ms3 - Prescription Opioid Use ms3 - Patient Portal Instructions ms3 - Leadership Thank You Letter ms3 Signatures: Dispatcher [employer] Afshan Becker RN RN ap3 Umair Coppola DO DO ms3 Corrections: (The following items were deleted from the chart) 12:35 12:32 Cardiovascular: Rate: normal, Rhythm: irregularly irregular, Pulses: no pulse ms3 deficits are appreciated, ms3 12:38 10:03 Cardiac monitoring ordered. ms3 ap3
[2025-06-09 15:39] VITALS: TEMP 98.1
[2025-06-09 15:41] VITALS: BP 136/73; O2SAT 96
== END 2025-06-09 12:39 | disposition home or self-care (01) ==
LOC: ER 09:23
DX: M62.81 Muscle weakness (generalized) (principal); I10 Essential (primary) hypertension; I48.91 Unspecified atrial fibrillation; Z86.73 Personal history of transient ischemic attack (TIA), and cerebral infarction without residual deficits
CPT/HCPCS: 36415; 71045; 80048; 83735; 83880; 84484; 85025; 93005; 99284